=== PATIENT | male | born 1945 | race Caucasian/White ===

== ENCOUNTER 2019-09-25 14:47 | Emergency (ER) | payer MEDICARE, OTHER ==
[~2019-09-25] VITALS: Ht 162.5 cm; Wt 52.7 kg
[2019-09-25] MEDS ORDERED: PANT40TA3 (15:16)
[2019-09-25] MEDS ORDERED: ATEN25TA (15:16)
[2019-09-25] MEDS ORDERED: DIGO125T3 (15:16)
[2019-09-25] MEDS ORDERED: ATOR40TA70 (15:16)
[2019-09-25] MEDS ORDERED: LISI-556 (15:16)
[2019-09-25] MEDS ORDERED: BUME2TAB7 (15:16)
--- NOTE | 2019-09-25 15:27 | NUR ---
CURRENT B/P 138/69
--- NOTE | 2019-09-25 15:30 | ED Upper Extremity ---
General Chief Complaint: Laceration Stated Complaint: RIGHT HAND LAC Nursing Triage Note: PT AMB TO TRIAGE WITH COMPLAINTOF LACERATION TO RIGHT HAND. PT STATES A BOARD WITH NAILS WAS DROPPED AND CAUGHT HIS HAD. WHILE IN TRIAGE, PT BECAME DIAPHORETIC AND BLOOD PRESSURE WAS 64/31. WHEN BROUGHT BACK TO ER ROOM, PT STATED HE STARTED TO FEEL BETTER AND BP INCREASED TO 116/50. Nursing Sepsis Screen: No Definite Risk Source: patient Exam Limitations: no limitations History of Present Illness Date Seen by Provider: Sep 25, 2019 Time Seen by Provider: 15:28 Initial Comments To ER with reports of right hand injury. They were throwing a board with nails and into the trash when it fell landing back on his hand, the nails got the dorsal aspect of the right hand over the fourth and fifth knuckles. He had intense pain. During triage blood pressure was noted to be 60 systolic he was diaphoretic and lightheaded. He states the pain is very intense. He was brought back to room immediately, blood pressure up to 115/60, states that he is feeling quite a bit better and no longer diaphoretic. Onset: just prior to arrival Severity: moderate Pain/Injury Location: right hand Method of Injury: direct blow Modifying Factors: Worse With Movement Allergies and Home Medications Allergies Coded Allergies: No Known Drug Allergies (Unverified , 09/25/19) Home Medications Cephalexin 500 Mg Capsule, 500 MG PO TID Prescribed by: MARGO GONZALEZ on 09/25/19 1552 Hydrocodone/Acetaminophen 1 Each Tablet, 1 TAB PO Q4-6HR Prescribed by: MARGO GONZALEZ on 09/25/19 1559 Patient Home Medication List Home Medication List Reviewed: Yes Review of Systems Constitutional: see HPI EENTM: see HPI Respiratory: no symptoms reported Cardiovascular: no symptoms reported Genitourinary: no symptoms reported Musculoskeletal: see HPI Skin: see HPI Psychiatric/Neurological: No Symptoms Reported Past [place]mw[place]-Yxlfac Hx Patient Social History Recent Foreign Travel: No Contact w/Someone Who Travel: No Recent Infectious Disease Expo: No Physical Exam Vital Signs Vital Signs - First Documented 09/25/19 15:09 Temp 36.6 Pulse 72 Resp 20 B/P (MAP) 116/50 (72) Pulse Ox 96 O2 Delivery Room Air Capillary Refill : Less Than 3 Seconds Height, Weight, BMI Height: '" Weight: lbs. oz. kg; 19.00 BMI Method: General Appearance: WD/WN, no apparent distress HEENT: PERRL/EOMI, normal ENT inspection Respiratory: no respiratory distress, no accessory muscle use Shoulder: normal inspection, non-tender Elbow/Forearm: normal inspection, non-tender, Right Wrist: Yes normal inspection, Yes non-tender Hand: Right (there is a laceration, dorsal aspect of the hand on the ulnar side of the distal third metacarpal extending down to the proximal phalanx ulnar side third digit, another one on the ulnar side of the proximal phalanx fourth finger. Normal sensation distally, can make a fist and extend all fingers.) Neurologic/Tendon: normal sensation, normal motor functions, normal tendon functions Neurologic/Psychiatric: alert, normal mood/affect, oriented x 3 Skin: normal color, warm/dry Progress/Results/Core Measures Results/Orders My Orders Orders - MARGO GONZALEZ APRN Hand, Right, 3 Views (09/25/19 15:27) Cephalexin Capsule (Keflex Capsule) (09/25/19 16:00) Hydrocodone/Apap 5/325 Tablet (Lortab 5 (09/25/19 16:00) Vital Signs/I&O 09/25/19 15:09 Temp 36.6 Pulse 72 Resp 20 B/P (MAP) 116/50 (72) Pulse Ox 96 O2 Delivery Room Air Blood Pressure Mean: 72 Departure Impression Primary Impression: Laceration of hand Qualified Codes: S61.411A - Laceration without foreign body of right hand, initial encounter Additional Impression: Vasovagal episode Disposition: 01 HOME, SELF-CARE Condition: Stable Departure-Patient Inst. Decision time for Depature: 15:50 Referrals: SEB LYLES,LOCAL PHYSICIAN (PCP) Primary Care Physician MERRITT ADAM MD, MICHAEL P MD Patient Instructions: Wound Care, Vasovagal Response Add. Discharge Instructions: 1. Return to ER for any worsening symptoms or other concerns as redness, swelling, fever, chills or worsening pain.: Orthopedic surgeon of your choosing to make an appointment to be seen for follow-up this week. A list has been provided.. Because this was a contaminated wound from nail we do not want to stitch this closed. Leave it open, keep it wrapped with a dressing changing the dressing daily. You can shower allowing water run over this started tomorrow. Take the antibiotics as directed. Follow-up with your doctor later this week for recheck. All discharge instructions reviewed with patient and/or family. Voiced understanding. Scripts Hydrocodone/Acetaminophen ([place] 5-325 Tablet) 1 Each Tablet 1 TAB PO Q4-6HR for Pain MDD 10 TABS for 7 Days, #10 TAB Prov: MAROG GONZALEZ APRN 09/25/19 Cephalexin (Keflex) 500 Mg Capsule 500 MG PO TID, #15 CAP Prov: MARGO GONZALEZ APRN 09/25/19 MARGO GONZALEZ APRN Sep 25, 2019 15:30
[2019-09-25] MEDS ORDERED: CEPH-507 PO (15:52)
--- NOTE | 2019-09-25 15:53 | Diagnostic Imaging Report ---
INDICATION: Injury to right hand. AP, oblique, and lateral views of the right hand are obtained. 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 There are diffuse degenerative changes throughout the MCP joints as well as throughout the interphalangeal joints. There is no acute fracture. IMPRESSION: Advanced degenerative findings as above with no acute abnormality or radiopaque foreign body. Dictated by: Dictated on workstation # [id number]
[2019-09-25] MEDS ORDERED: HYDR-4226 PO (15:59)
[2019-09-25] MEDS ORDERED: CEPHALEXIN 250 MG (KEFLEX) CAP PO ONE (16:00)
[2019-09-25] MEDS ORDERED: HYDROcodone/APAP 5 MG/325 MG (LORTAB) TAB PO ONE (16:00)
[2019-09-25 16:10] VITALS: BP 102/47
--- OUTSIDE RECORDS SUMMARY | 2019-10-04 12:01 | XMS REPORT | Clinical Summary ---
Author Author Zoe, Alex Jacobs [facility] Address Unknown Phone Unavailable Allergies, Adverse Reactions, Alerts Allergy Name Reaction Description Start Date Severity Status Pr ovider NKDA Critical Active Kendra Yoon APR N Conditions or Problems Problem Name Problem Code Onset Date Status Entry Date Provider Comment Standard Description Annotate HYPERTENSION 401.9 Active DANNY Tabor Unspecified essential hypertension HYPERLIPIDEMIA 272.4 Active DANNY Tabor Other and unspecified hyperlipidemia FH DIABETES V18.0 Active DANNY Tabor Family history of diabetes mellitus PERSONAL HISTORY MALIGNANT NEOPLASM ESOPHAGUS V10.03 Active Francisco J Mata MD Personal history of malignant neoplasm of esophagus G E R D 530.81 Active Kendra Irving APRN Es ophageal reflux BRONCHITIS-ACUTE 466.0 Inactive 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 F/U EXAM FOLLOW CMPL TX W/HIGH-RISK MED NEC V67.51 Act brad Kendra Irving APRN Follow-up examination follow ing treatment with high-risk medication, not elsewhere classified CAD 414.00 Active Bill Gonzáles MD Coronary atherosclerosis of unspecified type of vessel, [place] or graft Sinusitis 461.9 Active Bill Gonzáles MD Acute sinusitis, unspecified Colon cancer screening V76.51 Active Kendra Yoon APRN Screening for malignant neoplasms of colon BRONCHITIS-ACUTE ICD-466.0 Inactive Kendra josé APRN Medication List Medication Instructions Start Date Stop Date Generic Name NDC Status Provider Patient Instruction MELOXICAM 7.5 MG TABS 1 tab by mouth every 12 hours as needed 10/08 MELOXICAM 25302439922 Active Bill Gonzáles MD Active VIAGRA 50 MG TABS 1/2 TABLET 1 HR BEFORE BEDTIME SILDENAFIL CITRATE 82067582788 Active Essence Benson RMA Active AMOXICILLIN 875 MG TABS 1 tab by mouth twice daily 201 11/15/00 AMOXICILLIN 74866986860 No Longer Active Bill Gonzáles MD Acti ve LANOXIN 0.125 MG TABS 1 tab po qd DIGOXIN 21806435633 Ac tive Bill Gonzáles MD Active VIAGRA 100 MG TABS 1/2 po 1 hr before sexual activity SILDENAFIL CITRATE 48800652538 No Longer Active Francisco J Mata MD Active TUSSIONEX PENNKINETIC ER 10-8 MG/5ML LQCR 5ml po q12hr PRN Cough HYDROCOD POLST-CHLORPHEN POLST 92374569575 No Longer Active Francisco J Mata MD Active ZITHROMAX 250 MG TAB 2 po today, then 1 po q days 2-5 AZITHROMYCIN 66849028031 No Longer Active Francisco J Mata MD A ctive PREDNISONE 20 MG TAB 2 tabs daily for 3 days, 1 t ab daily for 3 days, 1/2 tab daily for 2 days PREDNISONE 63902967589 No Longer Active Kendra Irving APRN Active OMEPRAZOLE 40 MG CPDR 1 qd OMEPRAZOLE 92448 024158 No Longer Active Kendra Irving APRN Active ASPIR-81 81 MG TBEC 1 qd ASPIRIN 13124625066 DANNY [place] Active ATENOLOL 50 MG TABS 1 bid ATENOLOL 43233037629 Active Svetlana Clayton Active CLONIDINE HCL 0.1 MG TABS 1 bid CLONIDINE HCL 81182 924528 Active Bill Gonzáles MD Active CVS VITAMIN E 1000 UNIT CAPS 1 qd VITAMIN E 814569 43374 Active DANNY Tabor Active DAILY MULTIPLE VITAMINS TABS 1 qd MULTIPLE V ITAMIN 93289147181 Active DANNY Tabor Active GARLIC OIL 500 MG TABS 1 qd GARLIC 09527446266 Ac tive Mario Alberto Morfin RMMichael Active ZETIA 10 MG TABS 1 qd EZETIMIBE 17345664589 Active Bill Gonzáles MD Active KLOR-CON M20 20 MEQ CR-TABS 1 qd BLAKE M CHLORIDE JARRED CR 15816023402 Active Bill Gonzáles MD Active BUMETANIDE 2 MG TABS 1qd BUMETANIDE 45960414441 A ctive Nemo Morgan REGIONAL COORDINATOR Active SIMVASTATIN 40 MG TABS 1 qhs SIMVASTATIN 3704879047 6 Active Bill Gonzáles MD Active OMEPRAZOLE 40 MG CPDR 1 qd OMEPRAZOLE 40 MG CPDR 607945 OMEPRAZOLE Inactive ZITHROMAX 250 MG TAB 2 po today, then 1 po q days 2-5 ZITHROMAX 250 MG TAB 3704390 AZITHROMYCIN Inactive TUSSIONEX PENNKINETIC ER 10-8 MG/5ML LQCR 5ml po q12hr PRN Cough TUSSIONEX PENNKINETIC ER 10-8 MG/5ML LQCR HYDROCOD POLST-CHLORPHEN POLST Inactive VIAGRA 100 MG TABS 1/2 po 1 hr before sexual activity VIAGRA 100 MG TABS SILDENAFIL CITRATE Inactive PREDNISONE 20 MG TAB 2 tabs daily for 3 days, 1 t ab daily for 3 days, 1/2 tab daily for 2 days PREDNISONE 20 MG TAB 333705 PREDNISON E Inactive AMOXICILLIN 875 MG TABS 1 tab by mouth twice daily 201 11/15/00 AMOXICILLIN 875 MG TABS 290900 AMOXICILLIN Inactive Encounters Code Encounter Date Provider Facility CPT-12612 Level 4 Est. Patient 10:12:54 SAND SYSTEM OPERATOR Bill holden MD [facility] CPT-21584 Level 4 Est. Patient 20:03:37 SAND SYSTEM OPERATOR Bill holden MD [facility] CPT-57882 Level 3 Est. Patient 16:15:23 SAND SYSTEM OPERATOR Bill holden MD [facility] CPT-67500 Level 4 Est. Patient 23:44:36 CDT Bill holden MD [facility] CPT-75437 Level 3 Est. Patient 14:02:53 SAND SYSTEM OPERATOR Kendra rankin APRN [facility] Procedures Code Procedure Name Date Entry Date Standard Desc ription CPT-OV Office Visit 14:28:59 SAND SYSTEM OPERATOR CPT-OV Office Visit 11:28:00 CDT CPT-OV Office Visit 15:01:24 CDT CPT-OV Office Visit 16:55:58 CDT CPT-OV Office Visit 16:05:31 SAND SYSTEM OPERATOR CPT-OV Office Visit 09:47:16 SAND SYSTEM OPERATOR CPT-OV Office Visit 20:31:04 CDT
--- OUTSIDE RECORDS SUMMARY | 2019-10-04 12:01 | XMS REPORT | Clinical Summary ---
Author Author Zoe, Alex Jacobs [facility] Address Unknown Phone Unavailable Allergies, Adverse Reactions, Alerts Allergy Name Reaction Description Start Date Severity Status Pr ovider NKDA Critical Active Kendra APR N Conditions or Problems Problem Name [...] of esophagus G E R D 530.81 Resolved Francisco J Mata MD Esophageal reflux BRONCHITIS-ACUTE 466.0 Inactive Kendra CONTRERAS RN Acute bronchitis F/U EXAM FOLLOW CMPL TX W/HIGH-RISK MED NEC V67.51 Resolved Francisco J Mata MD Follow-up examina tion following treatment with high-risk medication, not elsewhere classified CAD 414.00 Active Bill Gonzáles MD Coronary atherosclerosis of unspecified type of vessel, [place] or graft Sinusitis 461.9 Resolved Francisco J Mata MD Acute sinusitis, unspecified Colon cancer screening V76.51 Resolved Juan Mata MD Screening for malignant neoplasms of col on Right upper quadrant pain Active Juan Mata MD Abdominal pain, right upper quadrant BRONCHITIS-ACUTE ICD-466.0 Inactive Kendra josé 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 F/U EXAM FOLLOW CMPL TX W/HIGH-RISK MED NEC ICD-V67.51 Inactive Francisco J Mata MD Sinusitis ICD-461.9 Inactive Francisco J juarez MD Colon cancer screening ICD-V76.51 Inactive Juan Mata MD G E R D ICD-530.81 Inactive Francisco J Mata MD 20 31/07/14 Medication List Medication Instructions Start Date Stop Date Generic Name NDC Status Provider Patient Instruction ZOFRAN ODT 4 MG ORAL TBDP 1 every 8 hrs prn OND ANSETRON 46393052608 Active Francisco J Mata MD Active CVS VITAMIN E 1000 UNIT CAPS 1 qd VITAMIN E 33781272004 No Longer Active Francisco J Mata MD Active KLOR-CON M20 20 MEQ CR-TABS 1 qd POTASSIUM CHLORIDE JARRED CR 71218720621 No Longer Active Francisco J Mata MD A ctive VIAGRA 50 MG TABS 1/2 TABLET 1 HR BEFORE BEDTIME 07/29 SILDENAFIL CITRATE 05364410317 No Longer Active Francisco J Mata MD Active MELOXICAM 7.5 MG TABS 1 tab by mouth every 12 hours as needed 20 30/09/22 MELOXICAM 22253479510 No Longer Active Francisco J Mata MD Active AMOXICILLIN 875 MG TABS 1 tab by mouth twice daily 201 11/15/00 AMOXICILLIN 37570455420 No Longer Active Bill Gonzáles MD Acti ve LANOXIN 0.125 MG TABS 1 tab po qd DIGOXIN 49896754963 Ac tive Bill Gonzáles MD Active VIAGRA 100 MG TABS 1/2 po 1 hr before sexual activity SILDENAFIL CITRATE 02140012888 No Longer Active Francisco J Mata MD Active TUSSIONEX PENNKINETIC ER 10-8 MG/5ML LQCR 5ml po q12hr PRN Cough HYDROCOD POLST-CHLORPHEN POLST 13540529929 No Longer Active Francisco J Mata MD Active ZITHROMAX 250 MG TAB 2 po today, then 1 po q days 2-5 AZITHROMYCIN 62378243670 No Longer Active Francisco J Mata MD A ctive PREDNISONE 20 MG TAB 2 tabs daily for 3 days, 1 t ab daily for 3 days, 1/2 tab daily for 2 days PREDNISONE 40416658199 No Longer Active Kendra Irving APRN Active OMEPRAZOLE 40 MG CPDR 1 qd OMEPRAZOLE 04044 576278 No Longer Active Kendra Irving APRN Active ASPIR-81 81 MG TBEC 1 qd ASPIRIN 12083278934 Activ e Mario Alberto Morfin RMA Active ATENOLOL 50 MG TABS 1 bid ATENOLOL 82852010831 Active Svetlana Clayton Active CLONIDINE HCL 0.1 MG TABS 1 bid CLONIDINE HCL 85338 118611 Active Bill Gonzáles MD Active DAILY MULTIPLE VITAMINS TABS 1 qd MULTIPLE V ITAMIN 58744033876 Active DANNY Tabor Active GARLIC OIL 500 MG TABS 1 qd GARLIC 20531371847 Ac tive Mario Alberto Morfin RMA Active ZETIA 10 MG TABS 1 qd EZETIMIBE 20146556517 Active Nemo Morgan APRN Active BUMETANIDE 2 MG TABS 1qd BUMETANIDE 04115015823 A ctive Nemo Morgan APRN Active SIMVASTATIN 40 MG TABS 1 qhs SIMVASTATIN 3042263132 6 Active Bill Gonzáles MD Active OMEPRAZOLE 40 MG CPDR 1 qd OMEPRAZOLE 40 MG CPDR 565261 OMEPRAZOLE Inactive ZITHROMAX 250 MG TAB 2 po today, then 1 po q days 2-5 ZITHROMAX 250 MG TAB 7170147 AZITHROMYCIN Inactive TUSSIONEX PENNKINETIC ER 10-8 MG/5ML LQCR 5ml po q12hr PRN Cough TUSSIONEX PENNKINETIC ER 10-8 MG/5ML LQCR HYDROCOD POLST-CHLORPHEN POLST Inactive VIAGRA 100 MG TABS 1/2 po 1 hr before sexual activity VIAGRA 100 MG TABS SILDENAFIL CITRATE Inactive MELOXICAM 7.5 MG TABS 1 tab by mouth every 12 hours as needed 20 30/09/22 MELOXICAM 7.5 MG TABS 052170 MELOXICAM Inactive VIAGRA 50 MG TABS 1/2 TABLET 1 HR BEFORE BEDTIME 07/29 VIAGRA 50 MG TABS SILDENAFIL CITRATE Inactive KLOR-CON M20 20 MEQ CR-TABS 1 qd KLOR-CON M20 20 MEQ CR-TABS POTASSIUM CHLORIDE JARRED CR Inactive CVS VITAMIN E 1000 UNIT CAPS 1 qd CVS VITAMIN E 1000 UNIT CAPS 562425 VITAMIN E Inactive PREDNISONE 20 MG TAB 2 tabs daily for 3 days, 1 t ab daily for 3 days, 1/2 tab daily for 2 days PREDNISONE 20 MG TAB 376674 PREDNISON E Inactive AMOXICILLIN 875 MG TABS 1 tab by mouth twice daily 201 11/15/00 AMOXICILLIN 875 MG TABS 959782 AMOXICILLIN Inactive Vital Signs Date Name Value Unit Range Description blood pressure, diastolic - 8462-4 60 mm[Hg] BP donald blood pressure, systolic - 8480-6 126 mm[Hg] BP sys pulse rate E&M - 8867-4 48 /min H eart rate temperature E&M 96.7 [degF] Body temp erature weight E&M - 3141-9 122 [lb_av] Weigh t Measured Diagnostic Results Date Name Value Unit Range Description Lab Report: CBC, Comp. Metabolic Panel - Chemistry sodium, serum 143 mmol/L 945-899 4532/12/14 carbon dioxide, venous blood 31.5 mmol/L 21.0-32 .0 potassium, serum 3.7 mmol/L 3.5-5.2 chloride, serum 103 mmol/L 98-107 blood glucose 93 mg/dL 65-110 urea nitrogen, blood 19 mg/dL 7-18 creatinine, serum 1.08 mg/dL 0.55-1.30 alanine aminotransferase (SGPT), serum 44 U/L 12-78 aspartate aminotransferase (SGOT), serum 28 U/L 15-37 calcium, serum 8.6 mg/dL 8.5-10.1 bilirubin, serum, total 0.30 mg/dL 0.00-1.00 Lab Report: CBC, Comp. Metabolic Panel - Hematology mean corpuscular volume, RBC 94 fL 80-97 hematocrit, blood 44.7 % 41.0-53.0 hemoglobin, blood 15.1 g/dL 13.5-17.5 erythrocyte (RBC) count 4.75 10^6/MM^3 10*6/mm3 4.69-6.1 3 leukocyte count, blood 8.8 10^3/MM^3 10*3/mm3 4.6-10.2 mean corpuscular hemoglobin, RBC 31.9 pg 27. 0-31.2 mean corpuscular hemoglobin concentration, RBC 33.8 G/DL % 31.8-35.4 red blood cell distribution width 14.2 % 11 .6-14.8 platelet count 175 10^3/MM^3 10*3/mm3 142-424 Encounters Code Encounter Date Provider Facility CPT-05059 Level 4 New Patient 15:31:29 OPTICAL COATING TECHNICIAN Francisco J Mata MD [facility] CPT-09868 Level 4 Est. Patient 10:12:54 OPTICAL COATING TECHNICIAN Bill holden MD [facility] CPT-72150 Level 4 Est. Patient 20:03:37 OPTICAL COATING TECHNICIAN Bill holden MD [facility] CPT-44573 Level 3 Est. Patient 16:15:23 OPTICAL COATING TECHNICIAN Bill holden MD [facility] CPT-55796 Level 4 Est. Patient 23:44:36 CDT Bill holden MD [facility] CPT-34701 Level 3 Est. Patient 14:02:53 OPTICAL COATING TECHNICIAN Kendra Arthur Rudd chucho CONTRERAS [facility] Procedures Code Procedure Name Date Entry Date Standard Desc ription CPT-30700 [employer] all organs plus proximal aorta and distal IVC - XRAY USE ONLY 11:53:25 OPTICAL COATING TECHNICIAN CPT-42443 CMP - LAB USE ONLY 17:29:21 OPTICAL COATING TECHNICIAN CPT-85279 CBC - LAB USE ONLY 17:29:21 OPTICAL COATING TECHNICIAN CPT-49447 Venipuncture Draw Fee 17:29:21 OPTICAL COATING TECHNICIAN CPT-OV Office Visit 14:28:59 OPTICAL COATING TECHNICIAN CPT-OV Office Visit 11:28:00 CDT CPT-OV Office Visit 15:01:24 CDT CPT-OV Office Visit 16:55:58 CDT CPT-OV Office Visit 16:05:31 OPTICAL COATING TECHNICIAN CPT-OV Office Visit 09:47:16 OPTICAL COATING TECHNICIAN CPT-OV Office Visit 20:31:04 CDT
--- OUTSIDE RECORDS SUMMARY | 2019-10-04 12:01 | XMS REPORT | Clinical Summary ---
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 bronchitis F/U EXAM FOLLOW CMPL TX W/HIGH-RISK MED NEC V67.51 Act brad Kendra Irving APRN Follow-up examination follow ing treatment with high-risk medication, not elsewhere classified CAD 414.00 Active Bill Gonzáles MD Coronary atherosclerosis of unspecified type of vessel, [place] or graft Sinusitis 461.9 Active Bill Gonzáles MD Acute sinusitis, unspecified Colon cancer screening V76.51 Active Kendra Yoon APRN Screening for malignant neoplasms of colon BRONCHITIS-ACUTE ICD-466.0 Inactive Kendra josé APRN Medication List Medication Instructions Start Date Stop Date Generic Name NDC Status Provider Patient Instruction MELOXICAM 7.5 MG TABS 1 tab by mouth every 12 hours as needed 10/08 MELOXICAM 52083471566 Active Bill Gonzáles MD Active VIAGRA 50 MG TABS 1/2 TABLET 1 HR BEFORE BEDTIME SILDENAFIL CITRATE 07558098064 Active Essence Benson RMA Active AMOXICILLIN 875 MG TABS 1 tab by mouth twice daily 201 11/15/00 AMOXICILLIN 67450866529 No Longer Active Bill Gonzáles MD Acti ve LANOXIN 0.125 MG TABS 1 tab po qd DIGOXIN 90983897504 Ac tive Bill Gonzáles MD Active VIAGRA 100 MG TABS 1/2 po 1 hr before sexual activity SILDENAFIL CITRATE 60670367094 No Longer Active Francisco J Mata MD Active TUSSIONEX PENNKINETIC ER 10-8 MG/5ML LQCR 5ml po q12hr PRN Cough HYDROCOD POLST-CHLORPHEN POLST 15369648830 No Longer Active Francisco J Mata MD Active ZITHROMAX 250 MG TAB 2 po today, then 1 po q days 2-5 AZITHROMYCIN 53864524972 No Longer Active Francisco J Mata MD A ctive PREDNISONE 20 MG TAB 2 tabs daily for 3 days, 1 t ab daily for 3 days, 1/2 tab daily for 2 days PREDNISONE 51507214231 No Longer Active Kendra Irving APRN Active OMEPRAZOLE 40 MG CPDR 1 qd OMEPRAZOLE 17147 574614 No Longer Active Kendra Irving APRN Active ASPIR-81 81 MG TBEC 1 qd ASPIRIN 45054551272 DANNY [place] Active ATENOLOL 50 MG TABS 1 bid ATENOLOL 63807683693 Active Svetlana Clayton Active CLONIDINE HCL 0.1 MG TABS 1 bid CLONIDINE HCL 35585 200908 Active Bill Gonzáles MD Active CVS VITAMIN E 1000 UNIT CAPS 1 qd VITAMIN E 869631 42023 Active DANNY Tabor Active DAILY MULTIPLE VITAMINS TABS 1 qd MULTIPLE V ITAMIN 09192911694 Active DANNY Tabor Active GARLIC OIL 500 MG TABS 1 qd GARLIC 92804538823 Ac tive Mario Alberto Morfin RMMichael Active ZETIA 10 MG TABS 1 qd EZETIMIBE 91201342813 Active Bill Gonzáles MD Active KLOR-CON M20 20 MEQ CR-TABS 1 qd BLAKE M CHLORIDE JARRED CR 30858016682 Active Bill Gonzáles MD Active BUMETANIDE 2 MG TABS 1qd BUMETANIDE 58280275416 A ctive Nemo Morgan WELDER [employer] GAS Active SIMVASTATIN 40 MG TABS 1 qhs SIMVASTATIN 9654344255 6 Active Bill Gonzáles MD Active OMEPRAZOLE 40 MG CPDR 1 qd OMEPRAZOLE 40 MG CPDR 131985 OMEPRAZOLE Inactive ZITHROMAX 250 MG TAB 2 po today, then 1 po q days 2-5 ZITHROMAX 250 MG TAB 3006157 AZITHROMYCIN Inactive TUSSIONEX PENNKINETIC ER 10-8 MG/5ML [...] for 2 days PREDNISONE 20 MG TAB 111161 PREDNISON E Inactive AMOXICILLIN 875 MG TABS 1 tab by mouth twice daily 201 11/15/00 AMOXICILLIN 875 MG TABS 267484 AMOXICILLIN Inactive Encounters Code Encounter Date Provider Facility CPT-41216 Level 4 Est. Patient 10:12:54 JOB PLACEMENT SPECIALIST Bill holden MD [facility] CPT-18975 Level 4 Est. Patient 20:03:37 JOB PLACEMENT SPECIALIST Bill holden MD [facility] CPT-96630 Level 3 Est. Patient 16:15:23 JOB PLACEMENT SPECIALIST Bill holden MD [facility] CPT-72002 Level 4 Est. Patient 23:44:36 CDT Bill holden MD [facility] CPT-67023 Level 3 Est. Patient 14:02:53 JOB PLACEMENT SPECIALIST Kendra rankin APRN [facility] Procedures Code Procedure Name Date Entry Date Standard Desc ription CPT-OV Office Visit 14:28:59 JOB PLACEMENT SPECIALIST CPT-OV Office Visit 11:28:00 CDT CPT-OV Office Visit 15:01:24 CDT CPT-OV Office Visit 16:55:58 CDT CPT-OV Office Visit 16:05:31 JOB PLACEMENT SPECIALIST CPT-OV Office Visit 09:47:16 JOB PLACEMENT SPECIALIST CPT-OV Office Visit 20:31:04 CDT
--- OUTSIDE RECORDS SUMMARY | 2019-10-04 12:01 | XMS REPORT | Clinical Summary ---
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 F/U EXAM FOLLOW CMPL TX W/HIGH-RISK MED [...] 1 every 8 hrs prn OND ANSETRON 14341493049 Active Francisco J Mata MD Active CVS VITAMIN E 1000 UNIT CAPS 1 qd VITAMIN E 02634888690 No Longer Active Francisco J Mata MD Active KLOR-CON M20 20 MEQ CR-TABS 1 qd POTASSIUM CHLORIDE JARRED CR 57260633318 No Longer Active Francisco J Mata MD A ctive VIAGRA 50 MG TABS 1/2 TABLET 1 HR BEFORE BEDTIME 07/29 SILDENAFIL CITRATE 66053970504 No Longer Active Francisco J Mata MD Active MELOXICAM 7.5 MG TABS 1 tab by mouth every 12 hours as needed 20 30/09/22 MELOXICAM 92322741028 No Longer Active Francisco J Mata MD Active AMOXICILLIN 875 MG TABS 1 tab by mouth twice daily 201 11/15/00 AMOXICILLIN 19305248928 No Longer Active Bill Gonzáles MD Acti ve LANOXIN 0.125 MG TABS 1 tab po qd DIGOXIN 14288210247 Ac tive Bill Gonzáles MD Active VIAGRA 100 MG TABS 1/2 po 1 hr before sexual activity SILDENAFIL CITRATE 95493423345 No Longer Active Francisco J Mata MD Active TUSSIONEX PENNKINETIC ER 10-8 MG/5ML LQCR 5ml po q12hr PRN Cough HYDROCOD POLST-CHLORPHEN POLST 00158584934 No Longer Active Francisco J Mata MD Active ZITHROMAX 250 MG TAB 2 po today, then 1 po q days 2-5 AZITHROMYCIN 18575021084 No Longer Active Francisco J Mata MD A ctive PREDNISONE 20 MG TAB 2 tabs daily for 3 days, 1 t ab daily for 3 days, 1/2 tab daily for 2 days PREDNISONE 28207488878 No Longer Active Kendra Irving APRN Active OMEPRAZOLE 40 MG CPDR 1 qd OMEPRAZOLE 36824 132596 No Longer Active Kendra Irving APRN Active ASPIR-81 81 MG TBEC 1 qd ASPIRIN 90631519519 Activ e Mario Alberto Morfin RMA Active ATENOLOL 50 MG TABS 1 bid ATENOLOL 68117568418 Active Svetlana Clayton Active CLONIDINE HCL 0.1 MG TABS 1 bid CLONIDINE HCL 83537 468630 Active Bill Gonzáles MD Active DAILY MULTIPLE VITAMINS TABS 1 qd MULTIPLE V ITAMIN 82352650119 Active DANNY Tabor Active GARLIC OIL 500 MG TABS 1 qd GARLIC 29959025624 Ac tive Mario Alberto Morfin RMA Active ZETIA 10 MG TABS 1 qd EZETIMIBE 62792199692 Active Nemo Morgan APRN Active BUMETANIDE 2 MG TABS 1qd BUMETANIDE 73607019206 A ctive Nemo Morgan APRN Active SIMVASTATIN 40 MG TABS 1 qhs SIMVASTATIN 7682316660 6 Active Bill Gonzáles MD Active OMEPRAZOLE 40 MG CPDR 1 qd OMEPRAZOLE 40 MG CPDR 436112 OMEPRAZOLE Inactive ZITHROMAX 250 MG TAB 2 po today, then 1 po q days 2-5 ZITHROMAX 250 MG TAB 4243658 AZITHROMYCIN Inactive TUSSIONEX PENNKINETIC ER 10-8 MG/5ML LQCR 5ml po q12hr PRN Cough TUSSIONEX PENNKINETIC ER 10-8 MG/5ML LQCR HYDROCOD POLST-CHLORPHEN POLST Inactive VIAGRA 100 MG TABS 1/2 po 1 hr before sexual activity VIAGRA 100 MG TABS SILDENAFIL CITRATE Inactive MELOXICAM 7.5 MG TABS 1 tab by mouth every 12 hours as needed 20 30/09/22 MELOXICAM 7.5 MG TABS 713167 MELOXICAM Inactive VIAGRA 50 MG TABS 1/2 TABLET 1 HR BEFORE BEDTIME 07/29 VIAGRA 50 MG TABS SILDENAFIL CITRATE Inactive KLOR-CON M20 20 MEQ CR-TABS 1 qd KLOR-CON M20 20 MEQ CR-TABS POTASSIUM CHLORIDE JARRED CR Inactive CVS VITAMIN E 1000 UNIT CAPS 1 qd CVS VITAMIN E 1000 UNIT CAPS 536838 VITAMIN E Inactive PREDNISONE 20 MG TAB 2 tabs daily for 3 days, 1 t ab daily for 3 days, 1/2 tab daily for 2 days PREDNISONE 20 MG TAB 519580 PREDNISON E Inactive AMOXICILLIN 875 MG TABS 1 tab by mouth twice daily 201 11/15/00 AMOXICILLIN 875 MG TABS 860693 AMOXICILLIN Inactive Diagnostic Results Date Name Value Unit Range Description Lab Report: CBC, Comp. Metabolic Panel - Chemistry sodium, serum 143 mmol/L 216-355 2799/12/14 carbon dioxide, venous blood 31.5 mmol/L 21.0-32 [...] 142-424 Encounters Code Encounter Date Provider Facility CPT-93523 Level 4 New Patient 15:31:29 DIRECTOR CUSTOMER Francisco J Mata MD [facility] CPT-80302 Level 4 Est. Patient 10:12:54 DIRECTOR CUSTOMER Bill holden MD [facility] CPT-31859 Level 4 Est. Patient 20:03:37 DIRECTOR CUSTOMER Bill holden MD [facility] CPT-80293 Level 3 Est. Patient 16:15:23 DIRECTOR CUSTOMER Bill holden MD [facility] CPT-04212 Level 4 Est. Patient 23:44:36 CDT Bill holden MD [facility] CPT-54636 Level 3 Est. Patient 14:02:53 DIRECTOR CUSTOMER Kendra rankin APRN [facility] Procedures Code Procedure Name Date Entry Date Standard Desc ription CPT-60447 [facility] [employer] [facility] all organs plus proximal aorta and distal IVC - XRAY USE ONLY 11:53:25 DIRECTOR CUSTOMER CPT-46120 CMP - LAB USE ONLY 17:29:21 DIRECTOR CUSTOMER CPT-02858 CBC - LAB USE ONLY 17:29:21 [facility] CPT-20049 Venipuncture Draw Fee 17:29:21 DIRECTOR CUSTOMER CPT-OV Office Visit 14:28:59 DIRECTOR CUSTOMER CPT-OV Office Visit 11:28:00 CDT CPT-OV Office Visit 15:01:24 CDT CPT-OV Office Visit 16:55:58 CDT CPT-OV Office Visit 16:05:31 DIRECTOR CUSTOMER CPT-OV Office Visit 09:47:16 DIRECTOR CUSTOMER CPT-OV Office Visit 20:31:04 CDT
--- OUTSIDE RECORDS SUMMARY | 2019-10-04 12:01 | XMS REPORT | Clinical Summary ---
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 bronchitis F/U EXAM FOLLOW CMPL TX W/HIGH-RISK MED NEC V67.51 Act brad Kendra Irving APRN Follow-up examination follow ing treatment with high-risk medication, not elsewhere classified CAD 414.00 Active Bill Gonzáles MD Coronary atherosclerosis of unspecified type of vessel, [place] or graft Sinusitis 461.9 Active Bill Gonzáles MD Acute sinusitis, unspecified Colon cancer screening V76.51 Active Kendra Yoon APRN Screening for malignant neoplasms of colon BRONCHITIS-ACUTE ICD-466.0 Inactive Kendra josé APRN Medication List Medication Instructions Start Date Stop Date Generic Name NDC Status Provider Patient Instruction MELOXICAM 7.5 MG TABS 1 tab by mouth every 12 hours as needed 10/08 MELOXICAM 57770350779 Active Bill Gonzáles MD Active VIAGRA 50 MG TABS 1/2 TABLET 1 HR BEFORE BEDTIME SILDENAFIL CITRATE 03787749631 Active Essence Benson RMA Active AMOXICILLIN 875 MG TABS 1 tab by mouth twice daily 201 11/15/00 AMOXICILLIN 39155714780 No Longer Active Bill Gonzáles MD Acti ve LANOXIN 0.125 MG TABS 1 tab po qd DIGOXIN 17581883509 Ac tive Bill Gonzáles MD Active VIAGRA 100 MG TABS 1/2 po 1 hr before sexual activity SILDENAFIL CITRATE 76129325553 No Longer Active Francisco J Mata MD Active TUSSIONEX PENNKINETIC ER 10-8 MG/5ML LQCR 5ml po q12hr PRN Cough HYDROCOD POLST-CHLORPHEN POLST 22672589111 No Longer Active Francisco J Mata MD Active ZITHROMAX 250 MG TAB 2 po today, then 1 po q days 2-5 AZITHROMYCIN 38247846510 No Longer Active Francisco J Mata MD A ctive PREDNISONE 20 MG TAB 2 tabs daily for 3 days, 1 t ab daily for 3 days, 1/2 tab daily for 2 days PREDNISONE 79299552493 No Longer Active Kendra Irving APRN Active OMEPRAZOLE 40 MG CPDR 1 qd OMEPRAZOLE 42236 620423 No Longer Active Kendra Irving APRN Active ASPIR-81 81 MG TBEC 1 qd ASPIRIN 17430217545 DANNY [place] Active ATENOLOL 50 MG TABS 1 bid ATENOLOL 46990509841 Active Svetlana Clayton Active CLONIDINE HCL 0.1 MG TABS 1 bid CLONIDINE HCL 38110 424224 Active Bill Gonzáles MD Active CVS VITAMIN E 1000 UNIT CAPS 1 qd VITAMIN E 100981 35829 Active DANNY Tabor Active DAILY MULTIPLE VITAMINS TABS 1 qd MULTIPLE V ITAMIN 13251792389 Active DANNY Tabor Active GARLIC OIL 500 MG TABS 1 qd GARLIC 01475837799 Ac tive Mario Alberto Morfin RMMichael Active ZETIA 10 MG TABS 1 qd EZETIMIBE 26792688664 Active Nemo Eddie ARTIFICIAL LIMB MAKER Active KLOR-CON M20 20 MEQ CR-TABS 1 qd BLAKE M CHLORIDE JARRED CR 75498632583 Active Bill Gonzáles MD Active BUMETANIDE 2 MG TABS 1qd BUMETANIDE 69075366360 A ctive Nemolarry Morgan APRN Active SIMVASTATIN 40 MG TABS 1 qhs SIMVASTATIN 7044561679 6 Active Bill Gonzáles MD Active OMEPRAZOLE 40 MG CPDR 1 qd OMEPRAZOLE 40 MG CPDR 678158 OMEPRAZOLE Inactive ZITHROMAX 250 MG TAB 2 po today, then 1 po q days 2-5 ZITHROMAX 250 MG TAB 8805346 AZITHROMYCIN Inactive TUSSIONEX PENNKINETIC ER 10-8 MG/5ML [...] for 2 days PREDNISONE 20 MG TAB 252950 PREDNISON E Inactive AMOXICILLIN 875 MG TABS 1 tab by mouth twice daily 201 11/15/00 AMOXICILLIN 875 MG TABS 576839 AMOXICILLIN Inactive Encounters Code Encounter Date Provider Facility CPT-09810 Level 4 Est. Patient 10:12:54 TELECOMMUNICATIONS FIELD ENGINEER Bill holden MD [facility] CPT-90209 Level 4 Est. Patient 20:03:37 TELECOMMUNICATIONS FIELD ENGINEER Bill holden MD [facility] CPT-83654 Level 3 Est. Patient 16:15:23 TELECOMMUNICATIONS FIELD ENGINEER Bill holden MD [facility] CPT-68268 Level 4 Est. Patient 23:44:36 CDT Bill holden MD [facility] CPT-55636 Level 3 Est. Patient 14:02:53 TELECOMMUNICATIONS FIELD ENGINEER Kendra rankin APRN [facility] Procedures Code Procedure Name Date Entry Date Standard Desc ription CPT-OV Office Visit 14:28:59 TELECOMMUNICATIONS FIELD ENGINEER CPT-OV Office Visit 11:28:00 CDT CPT-OV Office Visit 15:01:24 CDT CPT-OV Office Visit 16:55:58 CDT CPT-OV Office Visit 16:05:31 TELECOMMUNICATIONS FIELD ENGINEER CPT-OV Office Visit 09:47:16 TELECOMMUNICATIONS FIELD ENGINEER CPT-OV Office Visit 20:31:04 CDT
--- OUTSIDE RECORDS SUMMARY | 2019-10-04 12:01 | XMS REPORT | Clinical Summary ---
Author Author Zoe, Alex Jacobs [facility] Address Unknown Phone Unavailable Allergies, Adverse [...] ophageal reflux BRONCHITIS-ACUTE 466.0 Inactive Kendra CONTRERAS RN Acute bronchitis F/U EXAM FOLLOW CMPL TX W/HIGH-RISK MED NEC V67.51 Act brad Kendra Irving APRN Follow-up examination follow ing treatment with high-risk medication, not elsewhere classified CAD 414.00 Active Bill Gonzáles MD Coronary atherosclerosis of unspecified type of vessel, [place] or graft Sinusitis 461.9 Active Bill Gonzáles MD Acute sinusitis, unspecified Colon cancer screening V76.51 Active Kendra Yoon APRN Screening for malignant neoplasms of colon BRONCHITIS-ACUTE ICD-466.0 Inactive Kendra josé APRN Medication List Medication Instructions Start Date Stop Date Generic Name NDC Status Provider Patient Instruction MELOXICAM 7.5 MG TABS 1 tab by mouth every 12 hours as needed 10/08 MELOXICAM 39327066146 Active Bill Gonzáles MD Active VIAGRA 50 MG TABS 1/2 TABLET 1 HR BEFORE BEDTIME SILDENAFIL CITRATE 46219813550 Active Essence Benson RMA Active AMOXICILLIN 875 MG TABS 1 tab by mouth twice daily 201 11/15/00 AMOXICILLIN 08707891638 No Longer Active Bill Gonzáles MD Acti ve LANOXIN 0.125 MG TABS 1 tab po qd DIGOXIN 32545227583 Ac tive Bill Gonzáles MD Active VIAGRA 100 MG TABS 1/2 po 1 hr before sexual activity SILDENAFIL CITRATE 20860011481 No Longer Active Francisco J Mata MD Active TUSSIONEX PENNKINETIC ER 10-8 MG/5ML LQCR 5ml po q12hr PRN Cough HYDROCOD POLST-CHLORPHEN POLST 04005083352 No Longer Active Francisco J Mata MD Active ZITHROMAX 250 MG TAB 2 po today, then 1 po q days 2-5 AZITHROMYCIN 05097588179 No Longer Active Francisco J Mata MD A ctive PREDNISONE 20 MG TAB 2 tabs daily for 3 days, 1 t ab daily for 3 days, 1/2 tab daily for 2 days PREDNISONE 38138612437 No Longer Active Kendra Irving APRN Active OMEPRAZOLE 40 MG CPDR 1 qd OMEPRAZOLE 44192 874552 No Longer Active Kendra Irving APRN Active ASPIR-81 81 MG TBEC 1 qd ASPIRIN 83913501250 DANNY [place] Active ATENOLOL 50 MG TABS 1 bid ATENOLOL 29798569012 Active Svetlana Clayton Active CLONIDINE HCL 0.1 MG TABS 1 bid CLONIDINE HCL 01460 057336 Active Bill Gonzáles MD Active CVS VITAMIN E 1000 UNIT CAPS 1 qd VITAMIN E 826714 96299 Active DANNY Tabor Active DAILY MULTIPLE VITAMINS TABS 1 qd MULTIPLE V ITAMIN 19249477749 Active DANNY Tabor Active GARLIC OIL 500 MG TABS 1 qd GARLIC 24551542508 Ac tive Mario Alberto Morfin RMMichael Active ZETIA 10 MG TABS 1 qd EZETIMIBE 68979444484 Active Nemo Eddie TRANSFER AND PUMPHOUSE OPERATOR Active KLOR-CON M20 20 MEQ CR-TABS 1 qd BLAKE M CHLORIDE JARRED CR 56874677899 Active Bill Gonzáles MD Active BUMETANIDE 2 MG TABS 1qd BUMETANIDE 35755469504 A ctive Nemolarry Morgan APRN Active SIMVASTATIN 40 MG TABS 1 qhs SIMVASTATIN 6943168787 6 Active Bill Gonzáles MD Active OMEPRAZOLE 40 MG CPDR 1 qd OMEPRAZOLE 40 MG CPDR 664626 OMEPRAZOLE Inactive ZITHROMAX 250 MG TAB 2 po today, then 1 po q days 2-5 ZITHROMAX 250 MG TAB 0555648 AZITHROMYCIN Inactive TUSSIONEX PENNKINETIC ER 10-8 MG/5ML [...] for 2 days PREDNISONE 20 MG TAB 237985 PREDNISON E Inactive AMOXICILLIN 875 MG TABS 1 tab by mouth twice daily 201 11/15/00 AMOXICILLIN 875 MG TABS 923227 AMOXICILLIN Inactive Encounters Code Encounter Date Provider Facility CPT-61682 Level 4 Est. Patient 10:12:54 ROLL FINISHER Bill holden MD [facility] CPT-30459 Level 4 Est. Patient 20:03:37 ROLL FINISHER Bill holden MD [facility] CPT-35164 Level 3 Est. Patient 16:15:23 ROLL FINISHER Bill holden MD [facility] CPT-21522 Level 4 Est. Patient 23:44:36 CDT Bill holden MD [facility] CPT-78954 Level 3 Est. Patient 14:02:53 ROLL FINISHER Kendra rankin APRN [facility] Procedures Code Procedure Name Date Entry Date Standard Desc ription CPT-OV Office Visit 14:28:59 ROLL FINISHER CPT-OV Office Visit 11:28:00 CDT CPT-OV Office Visit 15:01:24 CDT CPT-OV Office Visit 16:55:58 CDT CPT-OV Office Visit 16:05:31 ROLL FINISHER CPT-OV Office Visit 09:47:16 ROLL FINISHER CPT-OV Office Visit 20:31:04 CDT
--- OUTSIDE RECORDS SUMMARY | 2019-10-04 12:01 | XMS REPORT | Clinical Summary ---
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 F/U EXAM FOLLOW CMPL TX W/HIGH-RISK MED NEC ICD-V67.51 Inactive Francisco J Mata MD Sinusitis ICD-461.9 Inactive Francisco J juarez MD Colon cancer screening ICD-V76.51 Inactive Juan Mata MD Medication List Medication Instructions Start Date Stop Date Generic Name NDC Status Provider Patient Instruction ZOFRAN ODT 4 MG ORAL TBDP 1 every 8 hrs prn OND ANSETRON 50485676077 Active Francisco J Mata MD Active CVS VITAMIN E 1000 UNIT CAPS 1 qd VITAMIN E 73708031104 No Longer Active Francisco J Mata MD Active KLOR-CON M20 20 MEQ CR-TABS 1 qd POTASSIUM CHLORIDE JARRED CR 49249452739 No Longer Active Francisco J Mata MD A ctive VIAGRA 50 MG TABS 1/2 TABLET 1 HR BEFORE BEDTIME 07/29 SILDENAFIL CITRATE 41866407921 No Longer Active Francisco J Mata MD Active MELOXICAM 7.5 MG TABS 1 tab by mouth every 12 hours as needed 20 30/09/22 MELOXICAM 81381434646 No Longer Active Francisco J Mata MD Active AMOXICILLIN 875 MG TABS 1 tab by mouth twice daily 201 11/15/00 AMOXICILLIN 22060329735 No Longer Active Bill Gonzáles MD Acti ve LANOXIN 0.125 MG TABS 1 tab po qd DIGOXIN 44447458467 Ac tive Bill Gonzáles MD Active VIAGRA 100 MG TABS 1/2 po 1 hr before sexual activity SILDENAFIL CITRATE 49082675281 No Longer Active Francisco J Mata MD Active TUSSIONEX PENNKINETIC ER 10-8 MG/5ML LQCR 5ml po q12hr PRN Cough HYDROCOD POLST-CHLORPHEN POLST 80617125092 No Longer Active Franicsco J Mata MD Active ZITHROMAX 250 MG TAB 2 po today, then 1 po q days 2-5 AZITHROMYCIN 59268578828 No Longer Active Francisco J Mata MD A ctive PREDNISONE 20 MG TAB 2 tabs daily for 3 days, 1 t ab daily for 3 days, 1/2 tab daily for 2 days PREDNISONE 48107190226 No Longer Active Kendra Irving APRN Active OMEPRAZOLE 40 MG CPDR 1 qd OMEPRAZOLE 22909 771369 No Longer Active Kendra Irving APRN Active ASPIR-81 81 MG TBEC 1 qd ASPIRIN 73507893378 Activ e Mario Alberto Morfin RMA Active ATENOLOL 50 MG TABS 1 bid ATENOLOL 30410292295 Active Svetlana Clayton Active CLONIDINE HCL 0.1 MG TABS 1 bid CLONIDINE HCL 11312 107090 Active Bill Gonzáles MD Active DAILY MULTIPLE VITAMINS TABS 1 qd MULTIPLE V ITAMIN 20672694870 Active DANNY Tabor Active GARLIC OIL 500 MG TABS 1 qd GARLIC 71669579114 Ac tive Mario Alberto Morfin RMA Active ZETIA 10 MG TABS 1 qd EZETIMIBE 14550001279 Active Nemo Morgan APRN Active BUMETANIDE 2 MG TABS 1qd BUMETANIDE 10267719802 A ctive Nemo Morgan APRN Active SIMVASTATIN 40 MG TABS 1 qhs SIMVASTATIN 0463003734 6 Active Bill Gonzáles MD Active OMEPRAZOLE 40 MG CPDR 1 qd OMEPRAZOLE 40 MG CPDR 392523 OMEPRAZOLE Inactive ZITHROMAX 250 MG TAB 2 po today, then 1 po q days 2-5 ZITHROMAX 250 MG TAB 3390768 AZITHROMYCIN Inactive TUSSIONEX PENNKINETIC ER 10-8 MG/5ML LQCR 5ml po q12hr PRN Cough TUSSIONEX PENNKINETIC ER 10-8 MG/5ML LQCR HYDROCOD POLST-CHLORPHEN POLST Inactive VIAGRA 100 MG TABS 1/2 po 1 hr before sexual activity VIAGRA 100 MG TABS SILDENAFIL CITRATE Inactive MELOXICAM 7.5 MG TABS 1 tab by mouth every 12 hours as needed 20 30/09/22 MELOXICAM 7.5 MG TABS 767307 MELOXICAM Inactive VIAGRA 50 MG TABS 1/2 TABLET 1 HR BEFORE BEDTIME 07/29 VIAGRA 50 MG TABS SILDENAFIL CITRATE Inactive KLOR-CON M20 20 MEQ CR-TABS 1 qd KLOR-CON M20 20 MEQ CR-TABS POTASSIUM CHLORIDE JARRED CR Inactive CVS VITAMIN E 1000 UNIT CAPS 1 qd CVS VITAMIN E 1000 UNIT CAPS 599921 VITAMIN E Inactive PREDNISONE 20 MG TAB 2 tabs daily for 3 days, 1 t ab daily for 3 days, 1/2 tab daily for 2 days PREDNISONE 20 MG TAB 209354 PREDNISON E Inactive AMOXICILLIN 875 MG TABS 1 tab by mouth twice daily 201 11/15/00 AMOXICILLIN 875 MG TABS 950620 AMOXICILLIN Inactive Diagnostic Results Date Name Value Unit Range Description Lab Report: CBC, Comp. Metabolic Panel - Chemistry sodium, serum 143 mmol/L 410-344 5733/12/14 carbon dioxide, venous blood 31.5 mmol/L 21.0-32 [...] Report: CBC, Comp. Metabolic Panel - Hematology leukocyte count, blood 8.8 10^3/MM^3 10*3/mm3 4.6-10.2 erythrocyte (RBC) count 4.75 10^6/MM^3 10*6/mm3 4.69-6.1 3 hemoglobin, blood 15.1 g/dL 13.5-17.5 hematocrit, blood 44.7 % 41.0-53.0 mean corpuscular volume, RBC 94 fL 80-97 mean corpuscular hemoglobin, RBC 31.9 pg 27. 0-31.2 mean corpuscular hemoglobin concentration, RBC 33.8 G/DL % 31.8-35.4 red blood cell distribution width 14.2 % 11 .6-14.8 platelet count 175 10^3/MM^3 10*3/mm3 142-424 Encounters Code Encounter Date Provider Facility CPT-76479 Level 4 New Patient 15:31:29 DIRECTOR SPEECH LANGUAGE Francisco J Mata MD [facility] CPT-80813 Level 4 Est. Patient 10:12:54 DIRECTOR SPEECH LANGUAGE Bill holden MD [facility] CPT-04504 Level 4 Est. Patient 20:03:37 DIRECTOR SPEECH LANGUAGE Bill holden MD [facility] CPT-29838 Level 3 Est. Patient 16:15:23 DIRECTOR SPEECH LANGUAGE Bill holden MD [facility] CPT-02155 Level 4 Est. Patient 23:44:36 CDT Bill holden MD [facility] CPT-75721 Level 3 Est. Patient 14:02:53 DIRECTOR SPEECH LANGUAGE Kendra rankin APRN [facility] Procedures Code Procedure Name Date Entry Date Standard Desc ription CPT-14800 [employer] inc all organs plus proximal aorta and distal IVC - XRAY USE ONLY 11:53:25 DIRECTOR SPEECH LANGUAGE CPT-43275 CMP - LAB USE ONLY 17:29:21 DIRECTOR SPEECH LANGUAGE CPT-65036 CBC - LAB USE ONLY 17:29:21 [facility] CPT-98362 Venipuncture Draw Fee 17:29:21 DIRECTOR SPEECH LANGUAGE CPT-OV Office Visit 14:28:59 DIRECTOR SPEECH LANGUAGE CPT-OV Office Visit 11:28:00 CDT CPT-OV Office Visit 15:01:24 CDT CPT-OV Office Visit 16:55:58 CDT CPT-OV Office Visit 16:05:31 DIRECTOR SPEECH LANGUAGE CPT-OV Office Visit 09:47:16 DIRECTOR SPEECH LANGUAGE CPT-OV Office Visit 20:31:04 CDT
--- OUTSIDE RECORDS SUMMARY | 2019-10-04 12:01 | XMS REPORT | Clinical Summary ---
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 Inactive Francisco J Mata MD 20 31/07/14 BRONCHITIS-ACUTE ICD-466.0 Inactive Kendra Rausch es CRYSTAL INSPECTOR F/U EXAM FOLLOW CMPL TX W/HIGH-RISK MED NEC ICD-V67.51 Inactive Francisco J Mata MD Sinusitis ICD-461.9 Inactive Francisco J juarez MD Colon cancer screening ICD-V76.51 Inactive Juan Mata MD Medication List Medication Instructions Start Date Stop Date Generic Name NDC Status Provider Patient Instruction ZOFRAN ODT 4 MG ORAL TBDP 1 every 8 hrs prn OND ANSETRON 95360839945 Active Francisco J Mata MD Active CVS VITAMIN E 1000 UNIT CAPS 1 qd VITAMIN E 42868507002 No Longer Active Francisco J Mata MD Active KLOR-CON M20 20 MEQ CR-TABS 1 qd POTASSIUM CHLORIDE JARRED CR 37500750206 No Longer Active Francisco J Mata MD A ctive VIAGRA 50 MG TABS 1/2 TABLET 1 HR BEFORE BEDTIME 07/29 SILDENAFIL CITRATE 05086607870 No Longer Active Francisco J Mata MD Active MELOXICAM 7.5 MG TABS 1 tab by mouth every 12 hours as needed 20 30/09/22 MELOXICAM 51425762881 No Longer Active Francisco J Mata MD Active AMOXICILLIN 875 MG TABS 1 tab by mouth twice daily 201 11/15/00 AMOXICILLIN 31471583014 No Longer Active Bill Gonzáles MD Acti ve LANOXIN 0.125 MG TABS 1 tab po qd DIGOXIN 21005734378 Ac tive Bill Gonzáles MD Active VIAGRA 100 MG TABS 1/2 po 1 hr before sexual activity SILDENAFIL CITRATE 25514459428 No Longer Active Francisco J Mata MD Active TUSSIONEX PENNKINETIC ER 10-8 MG/5ML LQCR 5ml po q12hr PRN Cough HYDROCOD POLST-CHLORPHEN POLST 32994139621 No Longer Active Francisco J Mata MD Active ZITHROMAX 250 MG TAB 2 po today, then 1 po q days 2-5 AZITHROMYCIN 53278403192 No Longer Active Francisco J Mata MD A ctive PREDNISONE 20 MG TAB 2 tabs daily for 3 days, 1 t ab daily for 3 days, 1/2 tab daily for 2 days PREDNISONE 75220299365 No Longer Active Kendra Irving APRN Active OMEPRAZOLE 40 MG CPDR 1 qd OMEPRAZOLE 45255 435448 No Longer Active Kendra Irving APRN Active ASPIR-81 81 MG TBEC 1 qd ASPIRIN 67254490059 Activ e Mario Alberto Morfin RMA Active ATENOLOL 50 MG TABS 1 bid ATENOLOL 71597288796 Active Svetlana Clayton Active CLONIDINE HCL 0.1 MG TABS 1 bid CLONIDINE HCL 92284 894851 Active Bill Gonzáles MD Active DAILY MULTIPLE VITAMINS TABS 1 qd MULTIPLE V ITAMIN 84644872466 Active DANNY Tabor Active GARLIC OIL 500 MG TABS 1 qd GARLIC 24051701903 Ac tive Mario Alberto Morfin RMA Active ZETIA 10 MG TABS 1 qd EZETIMIBE 92577770795 Active Nemo Morgan APRN Active BUMETANIDE 2 MG TABS 1qd BUMETANIDE 70155453461 A ctive Nemo Morgan APRN Active SIMVASTATIN 40 MG TABS 1 qhs SIMVASTATIN 5676109565 6 Active Bill Gonzáles MD Active OMEPRAZOLE 40 MG CPDR 1 qd OMEPRAZOLE 40 MG CPDR 296982 OMEPRAZOLE Inactive ZITHROMAX 250 MG TAB 2 po today, then 1 po q days 2-5 ZITHROMAX 250 MG TAB 2529493 AZITHROMYCIN Inactive TUSSIONEX PENNKINETIC ER 10-8 MG/5ML LQCR 5ml po q12hr PRN Cough TUSSIONEX PENNKINETIC ER 10-8 MG/5ML LQCR HYDROCOD POLST-CHLORPHEN POLST Inactive VIAGRA 100 MG TABS 1/2 po 1 hr before sexual activity VIAGRA 100 MG TABS SILDENAFIL CITRATE Inactive MELOXICAM 7.5 MG TABS 1 tab by mouth every 12 hours as needed 20 30/09/22 MELOXICAM 7.5 MG TABS 225175 MELOXICAM Inactive VIAGRA 50 MG TABS 1/2 TABLET 1 HR BEFORE BEDTIME 07/29 VIAGRA 50 MG TABS SILDENAFIL CITRATE Inactive KLOR-CON M20 20 MEQ CR-TABS 1 qd KLOR-CON M20 20 MEQ CR-TABS POTASSIUM CHLORIDE JARRED CR Inactive CVS VITAMIN E 1000 UNIT CAPS 1 qd CVS VITAMIN E 1000 UNIT CAPS 859571 VITAMIN E Inactive PREDNISONE 20 MG TAB 2 tabs daily for 3 days, 1 t ab daily for 3 days, 1/2 tab daily for 2 days PREDNISONE 20 MG TAB 325639 PREDNISON E Inactive AMOXICILLIN 875 MG TABS 1 tab by mouth twice daily 201 11/15/00 AMOXICILLIN 875 MG TABS 706235 AMOXICILLIN Inactive Vital Signs Date Name Value [...] Panel - Chemistry sodium, serum 143 mmol/L 315-045 1160/12/14 carbon dioxide, venous blood 31.5 mmol/L 21.0-32 [...] 142-424 Encounters Code Encounter Date Provider Facility CPT-79361 Level 4 New Patient 15:31:29 [facility] Francisco J Mata MD [facility] CPT-78972 Level 4 Est. Patient 10:12:54 [facility] Bill holden MD [facility] CPT-32202 Level 4 Est. Patient 20:03:37 [facility] Bill holden MD [facility] CPT-66327 Level 3 Est. Patient 16:15:23 [facility] Bill holden MD [facility] CPT-30572 Level 4 Est. Patient 23:44:36 CDT Bill holden MD [facility] CPT-02214 Level 3 Est. Patient 14:02:53 [facility] Kendra Arthur Rudd chucho CONTRERAS [facility] Procedures Code Procedure Name Date Entry Date Standard Desc ription CPT-41854 [employer] inc all organs plus proximal aorta and distal IVC - XRAY USE ONLY 11:53:25 [facility] CPT-23032 CMP - LAB USE ONLY 17:29:21 [facility] CPT-71892 CBC - LAB USE ONLY 17:29:21 [facility] CPT-86578 Venipuncture Draw Fee 17:29:21 [facility] CPT-OV Office Visit 14:28:59 [facility] CPT-OV Office Visit 11:28:00 CDT CPT-OV Office Visit 15:01:24 CDT CPT-OV Office Visit 16:55:58 CDT CPT-OV Office Visit 16:05:31 [facility] CPT-OV Office Visit 09:47:16 [facility] CPT-OV Office Visit 20:31:04 CDT
--- OUTSIDE RECORDS SUMMARY | 2019-10-04 12:01 | XMS REPORT | Clinical Summary ---
Author Author Zoe, Alex Jacobs [facility] Address Unknown Phone Unavailable Allergies, Adverse [...] Coronary atherosclerosis of unspecified type of vessel, [place] or graft Sinusitis 461.9 Active Bill Gonzáles MD Acute sinusitis, unspecified Colon cancer screening V76.51 Active Kendra Yoon APRN Screening for malignant neoplasms of colon BRONCHITIS-ACUTE ICD-466.0 Inactive Kendra josé APRN Medication List Medication Instructions Start Date Stop Date Generic Name NDC Status Provider Patient Instruction MELOXICAM 7.5 MG TABS 1 tab by mouth every 12 hours as needed 10/08 MELOXICAM 49878279832 Active Bill Gonzáles MD Active VIAGRA 50 MG TABS 1/2 TABLET 1 HR BEFORE BEDTIME SILDENAFIL CITRATE 66941281260 Active Essence Benson RMA Active AMOXICILLIN 875 MG TABS 1 tab by mouth twice daily 201 11/15/00 AMOXICILLIN 63401079041 No Longer Active Bill Gonzáles MD Acti ve LANOXIN 0.125 MG TABS 1 tab po qd DIGOXIN 85590013240 Ac tive Bill Gonzáles MD Active VIAGRA 100 MG TABS 1/2 po 1 hr before sexual activity SILDENAFIL CITRATE 44718375812 No Longer Active Francisco J Mata MD Active TUSSIONEX PENNKINETIC ER 10-8 MG/5ML LQCR 5ml po q12hr PRN Cough HYDROCOD POLST-CHLORPHEN POLST 79962523911 No Longer Active Francisco J Mata MD Active ZITHROMAX 250 MG TAB 2 po today, then 1 po q days 2-5 AZITHROMYCIN 39597869206 No Longer Active Francisco J Mata MD A ctive PREDNISONE 20 MG TAB 2 tabs daily for 3 days, 1 t ab daily for 3 days, 1/2 tab daily for 2 days PREDNISONE 56433999804 No Longer Active Kendra Irving APRN Active OMEPRAZOLE 40 MG CPDR 1 qd OMEPRAZOLE 09926 706465 No Longer Active Kendra Irving APRN Active ASPIR-81 81 MG TBEC 1 qd ASPIRIN 18829951389 Matilde e DANNY Tabor Active ATENOLOL 50 MG TABS 1 bid ATENOLOL 32647081139 Acti ve Bill Gonzáles MD Active CLONIDINE HCL 0.1 MG TABS 1 bid CLONIDINE HCL 83352 477408 Active Bill Gonzáles MD Active CVS VITAMIN E 1000 UNIT CAPS 1 qd VITAMIN E 065432 07436 Active DANNY Tabor Active DAILY MULTIPLE VITAMINS TABS 1 qd MULTIPLE V ITAMIN 49816496002 Active DANNY Tabor Active GARLIC OIL 500 MG TABS 1 qd GARLIC 32586551800 Ac tive Mario Alberto Morfin RMMichael Active ZETIA 10 MG TABS 1 qd EZETIMIBE 48002560885 Active Bill Gonzáles MD Active KLOR-CON M20 20 MEQ CR-TABS 1 qd BLAKE Ba CHLORIDE JARRED CR 37542486561 Active Bill Gonzáles MD Active BUMETANIDE 2 MG TABS 1qd BUMETANIDE 09860211622 A ctive Bill Gonzáles MD Active SIMVASTATIN 40 MG TABS 1 qhs SIMVASTATIN 9734076767 6 Active Bill Gonzáles MD Active OMEPRAZOLE 40 MG CPDR 1 qd OMEPRAZOLE 40 MG CPDR 191181 OMEPRAZOLE Inactive ZITHROMAX 250 MG TAB 2 po today, then 1 po q days 2-5 ZITHROMAX 250 MG TAB 4768996 AZITHROMYCIN Inactive TUSSIONEX PENNKINETIC ER 10-8 MG/5ML [...] for 2 days PREDNISONE 20 MG TAB 538586 PREDNISON E Inactive AMOXICILLIN 875 MG TABS 1 tab by mouth twice daily 201 11/15/00 AMOXICILLIN 875 MG TABS 534949 AMOXICILLIN Inactive Vital Signs Date Name Value Unit Range Description blood pressure, diastolic - 8462-4 81 mm[Hg] BP donald blood pressure, systolic - 8480-6 183 mm[Hg] BP sys pulse rate E&M - 8867-4 52 /min H eart rate temperature E&M 97.3 [degF] Body temp erature weight E&M - 3141-9 137 [lb_av] Weigh t Measured Diagnostic Results Date Name Value Unit Range Description Lab Report: Comp. Metabolic Panel, CBC, Lipid Panel, Digoxin, MICROALBUMIN - Chemistry sodium, serum 142 mmol/L 779-279 9743/02/23 potassium, serum 4.7 mmol/L 3.5-5.2 chloride, serum 102 mmol/L 98-107 carbon dioxide, venous blood 29.7 mmol/L 21.0-32 .0 blood glucose 92 mg/dL 65-110 urea nitrogen, blood 17 mg/dL 7-18 creatinine, serum 1.20 mg/dL 0.60-1.30 alanine aminotransferase (SGPT), serum 38 U/L 12-78 aspartate aminotransferase (SGOT), serum 25 U/L 15-37 calcium, serum 8.9 mg/dL 8.5-10.1 bilirubin, serum, total 0.60 mg/dL 0.00-1.00 cholesterol, serum 107 mg/dL 992-615 0918/02/23 triglyceride, serum, fasting 72 mg/dL 30-200 HDL cholesterol, serum 46 mg/dL 32-96 LDL cholesterol, serum 47 mg/dL 0-130 digoxin level, serum 0.0104 ng/mL Units c onverted. See lab report for original value. albumin/creatinine ratio, urine < 30 mg/g mg/g{creat} 0-2 9 Lab Report: Comp. Metabolic Panel, CBC, Lipid Panel, Digoxin, MICROALBUMIN - Hematology leukocyte count, blood 6.6 10^3/MM^3 10*3/mm3 4.6-10.2 erythrocyte (RBC) count 4.74 10^6/MM^3 10*6/mm3 4.69-6.1 3 hemoglobin, blood 15.4 g/dL 13.5-17.5 hematocrit, blood 44.9 % 41.0-53.0 mean corpuscular volume, RBC 95 fL 80-97 mean corpuscular hemoglobin, RBC 32.4 pg 27. 0-31.2 mean corpuscular hemoglobin concentration, RBC 34.2 G/DL % 31.8-35.4 red blood cell distribution width 14.9 % 11 .6-14.8 platelet count 183 10^3/MM^3 10*3/mm3 142-424 Lab Report: Comp. Metabolic Panel, CBC, Lipid Panel, Digoxin, MICROALBUMIN - Lab microalbumin, urine 10 0-19 Office Visit: CHECKUP - Chemistry cholesterol, target level 200 mg/dL LDL target level 100 mg/dL HDL cholesterol, serum, target level 40 mg/dL triglyceride, target level 150 mg/dL Encounters Code Encounter Date Provider Facility CPT-59188 Level 4 Est. Patient 10:12:54 FRONT FACER Bill holden MD [facility] CPT-37742 Level 4 Est. Patient 20:03:37 FRONT FACER Bill holden MD [facility] CPT-07788 Level 3 Est. Patient 16:15:23 FRONT FACER Bill holden MD [facility] CPT-30290 Level 4 Est. Patient 23:44:36 CDT Blil holden MD [facility] CPT-23576 Level 3 Est. Patient 14:02:53 FRONT FACER Kendra rankin APRN [facility] Procedures Code Procedure Name Date Entry Date Standard Desc ription CPT-OV Office Visit 14:28:59 FRONT FACER CPT-OV Office Visit 11:28:00 CDT CPT-OV Office Visit 15:01:24 CDT CPT-OV Office Visit 16:55:58 CDT CPT-OV Office Visit 16:05:31 FRONT FACER CPT-OV Office Visit 09:47:16 FRONT FACER CPT-OV Office Visit 20:31:04 CDT
--- OUTSIDE RECORDS SUMMARY | 2019-10-04 12:01 | XMS REPORT | Clinical Summary ---
Author Author Zoe, Alex Jacobs [facility] Address Unknown Phone Unavailable Allergies, Adverse Reactions, Alerts Allergy Name Reaction Description Start Date Severity Status Pr ovider NKDA Critical Active Knedra Yoon APR N Conditions or Problems Problem [...] Coronary atherosclerosis of unspecified type of vessel, [place] or graft Sinusitis 461.9 Active Bill Gonzáles MD Acute sinusitis, unspecified Colon cancer screening V76.51 Active Kendra Yoon APRN Screening for malignant neoplasms of colon BRONCHITIS-ACUTE ICD-466.0 Inactive Kendra josé APRN Medication List Medication Instructions Start Date Stop Date Generic Name NDC Status Provider Patient Instruction MELOXICAM 7.5 MG TABS 1 tab by mouth every 12 hours as needed 10/08 MELOXICAM 38109148147 Active Bill Gonzáles MD Active VIAGRA 50 MG TABS 1/2 TABLET 1 HR BEFORE BEDTIME SILDENAFIL CITRATE 39672031601 Active Essence Benson RMA Active AMOXICILLIN 875 MG TABS 1 tab by mouth twice daily 201 11/15/00 AMOXICILLIN 60804269875 No Longer Active Bill Gonzáles MD Acti ve LANOXIN 0.125 MG TABS 1 tab po qd DIGOXIN 96337090306 Ac tive Bill Gonzáles MD Active VIAGRA 100 MG TABS 1/2 po 1 hr before sexual activity SILDENAFIL CITRATE 58809562253 No Longer Active Francisco J Mata MD Active TUSSIONEX PENNKINETIC ER 10-8 MG/5ML LQCR 5ml po q12hr PRN Cough HYDROCOD POLST-CHLORPHEN POLST 44352668918 No Longer Active Francisco J Mata MD Active ZITHROMAX 250 MG TAB 2 po today, then 1 po q days 2-5 AZITHROMYCIN 35171187640 No Longer Active Francisco J Mata MD A ctive PREDNISONE 20 MG TAB 2 tabs daily for 3 days, 1 t ab daily for 3 days, 1/2 tab daily for 2 days PREDNISONE 14447400918 No Longer Active Kendra Irving APRN Active OMEPRAZOLE 40 MG CPDR 1 qd OMEPRAZOLE 76285 707846 No Longer Active Kendra Irving APRN Active ASPIR-81 81 MG TBEC 1 qd ASPIRIN 96423881261 DANNY [place] Active ATENOLOL 50 MG TABS 1 bid ATENOLOL 87591310985 Active Svetlana Clayton Active CLONIDINE HCL 0.1 MG TABS 1 bid CLONIDINE HCL 97796 853325 Active Bill Gonzáles MD Active CVS VITAMIN E 1000 UNIT CAPS 1 qd VITAMIN E 455900 07336 Active DANNY Tabor Active DAILY MULTIPLE VITAMINS TABS 1 qd MULTIPLE V ITAMIN 73448038032 Active DANNY Tabor Active GARLIC OIL 500 MG TABS 1 qd GARLIC 78702965932 Ac tive Mario Alberto Morfin RMMichael Active ZETIA 10 MG TABS 1 qd EZETIMIBE 87100472891 Active Nemo Eddie JINGLE WRITER Active KLOR-CON M20 20 MEQ CR-TABS 1 qd BLAKE M CHLORIDE JARRED CR 14873573857 Active Bill Gonzáles MD Active BUMETANIDE 2 MG TABS 1qd BUMETANIDE 39041152054 A ctive Nemolarry Morgan APRN Active SIMVASTATIN 40 MG TABS 1 qhs SIMVASTATIN 2794567535 6 Active Bill Gonzáles MD Active OMEPRAZOLE 40 MG CPDR 1 qd OMEPRAZOLE 40 MG CPDR 374971 OMEPRAZOLE Inactive ZITHROMAX 250 MG TAB 2 po today, then 1 po q days 2-5 ZITHROMAX 250 MG TAB 8795838 AZITHROMYCIN Inactive TUSSIONEX PENNKINETIC ER 10-8 MG/5ML [...] for 2 days PREDNISONE 20 MG TAB 373867 PREDNISON E Inactive AMOXICILLIN 875 MG TABS 1 tab by mouth twice daily 201 11/15/00 AMOXICILLIN 875 MG TABS 619569 AMOXICILLIN Inactive Encounters Code Encounter Date Provider Facility CPT-05197 Level 4 Est. Patient 10:12:54 PLASTIC SURGERY NURSE Bill holden MD [facility] CPT-10189 Level 4 Est. Patient 20:03:37 PLASTIC SURGERY NURSE Bill holden MD [facility] CPT-44685 Level 3 Est. Patient 16:15:23 PLASTIC SURGERY NURSE Bill holden MD [facility] CPT-92121 Level 4 Est. Patient 23:44:36 CDT Bill holden MD [facility] CPT-52041 Level 3 Est. Patient 14:02:53 PLASTIC SURGERY NURSE Kendra rankin APRN [facility] Procedures Code Procedure Name Date Entry Date Standard Desc ription CPT-OV Office Visit 14:28:59 PLASTIC SURGERY NURSE CPT-OV Office Visit 11:28:00 CDT CPT-OV Office Visit 15:01:24 CDT CPT-OV Office Visit 16:55:58 CDT CPT-OV Office Visit 16:05:31 PLASTIC SURGERY NURSE CPT-OV Office Visit 09:47:16 PLASTIC SURGERY NURSE CPT-OV Office Visit 20:31:04 CDT
--- OUTSIDE RECORDS SUMMARY | 2019-10-04 12:02 | XMS REPORT | Clinical Summary ---
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 Inactive Francisco J Mata MD 20 31/07/14 BRONCHITIS-ACUTE ICD-466.0 Inactive Kendra Rausch es BILLET CHECKER F/U EXAM FOLLOW CMPL TX W/HIGH-RISK MED NEC ICD-V67.51 Inactive Francisco J Mata MD Sinusitis ICD-461.9 Inactive Francisco J juarez MD Colon cancer screening ICD-V76.51 Inactive Juan Mata MD Medication List Medication Instructions Start Date Stop Date Generic Name NDC Status Provider Patient Instruction ZOFRAN ODT 4 MG ORAL TBDP 1 every 8 hrs prn OND ANSETRON 12706431819 Active Francisco J Mata MD Active CVS VITAMIN E 1000 UNIT CAPS 1 qd VITAMIN E 81175906377 No Longer Active Francisco J Mata MD Active KLOR-CON M20 20 MEQ CR-TABS 1 qd POTASSIUM CHLORIDE JARRED CR 44642133289 No Longer Active Francisco J Mata MD A ctive VIAGRA 50 MG TABS 1/2 TABLET 1 HR BEFORE BEDTIME 07/29 SILDENAFIL CITRATE 14638873148 No Longer Active Francisco J Mata MD Active MELOXICAM 7.5 MG TABS 1 tab by mouth every 12 hours as needed 20 30/09/22 MELOXICAM 76777554287 No Longer Active Francisco J Mata MD Active AMOXICILLIN 875 MG TABS 1 tab by mouth twice daily 201 11/15/00 AMOXICILLIN 99230649721 No Longer Active Bill Gonzáles MD Acti ve LANOXIN 0.125 MG TABS 1 tab po qd DIGOXIN 06729245245 Ac tive Bill Gonzáles MD Active VIAGRA 100 MG TABS 1/2 po 1 hr before sexual activity SILDENAFIL CITRATE 00084818715 No Longer Active Francisco J Mata MD Active TUSSIONEX PENNKINETIC ER 10-8 MG/5ML LQCR 5ml po q12hr PRN Cough HYDROCOD POLST-CHLORPHEN POLST 84104925801 No Longer Active Francisco J Mata MD Active ZITHROMAX 250 MG TAB 2 po today, then 1 po q days 2-5 AZITHROMYCIN 25441724571 No Longer Active Francisco J Mata MD A ctive PREDNISONE 20 MG TAB 2 tabs daily for 3 days, 1 t ab daily for 3 days, 1/2 tab daily for 2 days PREDNISONE 04788278309 No Longer Active Kendra Irving APRN Active OMEPRAZOLE 40 MG CPDR 1 qd OMEPRAZOLE 88795 726261 No Longer Active Kendra Irving APRN Active ASPIR-81 81 MG TBEC 1 qd ASPIRIN 57709274572 Activ e Mario Alberto Morfin RMA Active ATENOLOL 50 MG TABS 1 bid ATENOLOL 98686528775 Active Svetlana Clayton Active CLONIDINE HCL 0.1 MG TABS 1 bid CLONIDINE HCL 75108 947390 Active Bill Gonzáles MD Active DAILY MULTIPLE VITAMINS TABS 1 qd MULTIPLE V ITAMIN 56183383751 Active DANNY Tabor Active GARLIC OIL 500 MG TABS 1 qd GARLIC 07425593863 Ac tive Mario Alberto Morfin RMA Active ZETIA 10 MG TABS 1 qd EZETIMIBE 62892110517 Active Nemo Morgan APRN Active BUMETANIDE 2 MG TABS 1qd BUMETANIDE 73679368560 A ctive Nemo Morgan APRN Active SIMVASTATIN 40 MG TABS 1 qhs SIMVASTATIN 5394385157 6 Active Bill Gonzáles MD Active OMEPRAZOLE 40 MG CPDR 1 qd OMEPRAZOLE 40 MG CPDR 106044 OMEPRAZOLE Inactive ZITHROMAX 250 MG TAB 2 po today, then 1 po q days 2-5 ZITHROMAX 250 MG TAB 6710106 AZITHROMYCIN Inactive TUSSIONEX PENNKINETIC ER 10-8 MG/5ML LQCR 5ml po q12hr PRN Cough TUSSIONEX PENNKINETIC ER 10-8 MG/5ML LQCR HYDROCOD POLST-CHLORPHEN POLST Inactive VIAGRA 100 MG TABS 1/2 po 1 hr before sexual activity VIAGRA 100 MG TABS SILDENAFIL CITRATE Inactive MELOXICAM 7.5 MG TABS 1 tab by mouth every 12 hours as needed 20 30/09/22 MELOXICAM 7.5 MG TABS 900599 MELOXICAM Inactive VIAGRA 50 MG TABS 1/2 TABLET 1 HR BEFORE BEDTIME 07/29 VIAGRA 50 MG TABS SILDENAFIL CITRATE Inactive KLOR-CON M20 20 MEQ CR-TABS 1 qd KLOR-CON M20 20 MEQ CR-TABS POTASSIUM CHLORIDE JARRED CR Inactive CVS VITAMIN E 1000 UNIT CAPS 1 qd CVS VITAMIN E 1000 UNIT CAPS 638051 VITAMIN E Inactive PREDNISONE 20 MG TAB 2 tabs daily for 3 days, 1 t ab daily for 3 days, 1/2 tab daily for 2 days PREDNISONE 20 MG TAB 952156 PREDNISON E Inactive AMOXICILLIN 875 MG TABS 1 tab by mouth twice daily 201 11/15/00 AMOXICILLIN 875 MG TABS 854796 AMOXICILLIN Inactive Diagnostic Results Date Name Value Unit Range Description Lab Report: CBC, Comp. Metabolic Panel - Chemistry sodium, serum 143 mmol/L 510-264 3939/12/14 carbon dioxide, venous blood 31.5 mmol/L 21.0-32 [...] 142-424 Encounters Code Encounter Date Provider Facility CPT-88449 Level 4 New Patient 15:31:29 SATELLITE PROJECT SITE MONITOR Francisco J Mata MD [facility] CPT-90688 Level 4 Est. Patient 10:12:54 SATELLITE PROJECT SITE MONITOR Bill holden MD [facility] CPT-63155 Level 4 Est. Patient 20:03:37 SATELLITE PROJECT SITE MONITOR Bill holden MD [facility] CPT-04459 Level 3 Est. Patient 16:15:23 SATELLITE PROJECT SITE MONITOR Bill holden MD [facility] CPT-63937 Level 4 Est. Patient 23:44:36 CDT Bill holden MD [facility] CPT-01142 Level 3 Est. Patient 14:02:53 SATELLITE PROJECT SITE MONITOR Kendra rankin APRN [facility] Procedures Code Procedure Name Date Entry Date Standard Desc ription CPT-39370 Sono [employer]d [employer] inc all organs plus proximal aorta and distal IVC - XRAY USE ONLY 11:53:25 SATELLITE PROJECT SITE MONITOR CPT-66478 CMP - LAB USE ONLY 17:29:21 SATELLITE PROJECT SITE MONITOR CPT-78241 CBC - LAB USE ONLY 17:29:21 [facility] CPT-52148 Venipuncture Draw Fee 17:29:21 SATELLITE PROJECT SITE MONITOR CPT-OV Office Visit 14:28:59 SATELLITE PROJECT SITE MONITOR CPT-OV Office Visit 11:28:00 CDT CPT-OV Office Visit 15:01:24 CDT CPT-OV Office Visit 16:55:58 CDT CPT-OV Office Visit 16:05:31 SATELLITE PROJECT SITE MONITOR CPT-OV Office Visit 09:47:16 SATELLITE PROJECT SITE MONITOR CPT-OV Office Visit 20:31:04 CDT
--- OUTSIDE RECORDS SUMMARY | 2019-10-04 12:02 | XMS REPORT | Clinical Summary ---
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 F/U EXAM FOLLOW CMPL TX W/HIGH-RISK MED NEC V67.51 Act brad Kendra Irving APRN Follow-up examination follow ing treatment with high-risk medication, not elsewhere classified CAD 414.00 Active Bill Gonzáles MD Coronary atherosclerosis of unspecified type of vessel, [place] or graft Sinusitis 461.9 Active Bill Gonzáles MD Acute sinusitis, unspecified Colon cancer screening V76.51 Active Kendra Yoon APRN Screening for malignant neoplasms of colon BRONCHITIS-ACUTE ICD-466.0 Inactive Kendra josé APRN Medication List Medication Instructions Start Date Stop Date Generic Name NDC Status Provider Patient Instruction MELOXICAM 7.5 MG TABS 1 tab by mouth every 12 hours as needed 10/08 MELOXICAM 44819705490 Active Bill Gonzáles MD Active VIAGRA 50 MG TABS 1/2 TABLET 1 HR BEFORE BEDTIME SILDENAFIL CITRATE 10461423772 Active Essence Benson RMA Active AMOXICILLIN 875 MG TABS 1 tab by mouth twice daily 201 11/15/00 AMOXICILLIN 04887838860 No Longer Active Bill Gonzáles MD Acti ve LANOXIN 0.125 MG TABS 1 tab po qd DIGOXIN 95676426893 Ac tive Bill Gonzáles MD Active VIAGRA 100 MG TABS 1/2 po 1 hr before sexual activity SILDENAFIL CITRATE 10691616487 No Longer Active Francisco J Mata MD Active TUSSIONEX PENNKINETIC ER 10-8 MG/5ML LQCR 5ml po q12hr PRN Cough HYDROCOD POLST-CHLORPHEN POLST 26956918532 No Longer Active Francisco J Mata MD Active ZITHROMAX 250 MG TAB 2 po today, then 1 po q days 2-5 AZITHROMYCIN 15493851300 No Longer Active Francisco J Mata MD A ctive PREDNISONE 20 MG TAB 2 tabs daily for 3 days, 1 t ab daily for 3 days, 1/2 tab daily for 2 days PREDNISONE 18418943106 No Longer Active Kendra Irving APRN Active OMEPRAZOLE 40 MG CPDR 1 qd OMEPRAZOLE 87214 723242 No Longer Active Kendra Irving APRN Active ASPIR-81 81 MG TBEC 1 qd ASPIRIN 20485501166 DANNY [place] Active ATENOLOL 50 MG TABS 1 bid ATENOLOL 51902770572 Active Svetlana Clayton Active CLONIDINE HCL 0.1 MG TABS 1 bid CLONIDINE HCL 10581 795179 Active Bill Gonzáles MD Active CVS VITAMIN E 1000 UNIT CAPS 1 qd VITAMIN E 643823 25181 Active DANNY Tabor Active DAILY MULTIPLE VITAMINS TABS 1 qd MULTIPLE V ITAMIN 62793945299 Active DANNY Tabor Active GARLIC OIL 500 MG TABS 1 qd GARLIC 36390736095 Ac tive Mario Alberto Morfin RMMichael Active ZETIA 10 MG TABS 1 qd EZETIMIBE 36925304744 Active Bill Gonzáles MD Active KLOR-CON M20 20 MEQ CR-TABS 1 qd BLAKE Ba CHLORIDE JARRED CR 12049776143 Active Bill Gonzáles MD Active BUMETANIDE 2 MG TABS 1qd BUMETANIDE 13513058876 A ctive Bill Gonzáles MD Active SIMVASTATIN 40 MG TABS 1 qhs SIMVASTATIN 0744672897 6 Active Bill Gonzáles MD Active OMEPRAZOLE 40 MG CPDR 1 qd OMEPRAZOLE 40 MG CPDR 422981 OMEPRAZOLE Inactive ZITHROMAX 250 MG TAB 2 po today, then 1 po q days 2-5 ZITHROMAX 250 MG TAB 5877917 AZITHROMYCIN Inactive TUSSIONEX PENNKINETIC ER 10-8 MG/5ML [...] for 2 days PREDNISONE 20 MG TAB 585616 PREDNISON E Inactive AMOXICILLIN 875 MG TABS 1 tab by mouth twice daily 201 11/15/00 AMOXICILLIN 875 MG TABS 686341 AMOXICILLIN Inactive Vital Signs Date Name Value [...] MICROALBUMIN - Chemistry sodium, serum 142 mmol/L 347-781 9619/02/23 potassium, serum 4.7 mmol/L 3.5-5.2 chloride, serum 102 mmol/L 98-107 carbon dioxide, venous blood 29.7 mmol/L 21.0-32 .0 blood glucose 92 mg/dL 65-110 urea nitrogen, blood 17 mg/dL 7-18 creatinine, serum 1.20 mg/dL 0.60-1.30 alanine aminotransferase (SGPT), serum 38 U/L 12-78 aspartate aminotransferase (SGOT), serum 25 U/L 15-37 calcium, serum 8.9 mg/dL 8.5-10.1 bilirubin, serum, total 0.60 mg/dL 0.00-1.00 cholesterol, serum 107 mg/dL 190-268 1831/02/23 triglyceride, serum, fasting 72 mg/dL 30-200 HDL [...] mg/dL Encounters Code Encounter Date Provider Facility CPT-49338 Level 4 Est. 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 Patient 20:03:37 DOCTOR ASSISTANT Bill holden MD [facility] CPT-00815 Level 3 Est. Patient 16:15:23 DOCTOR ASSISTANT Bill holden MD [facility] CPT-70874 Level 4 Est. Patient 23:44:36 CDT Bill holden MD [facility] CPT-10330 Level 3 Est. Patient 14:02:53 DOCTOR ASSISTANT Kendra rankin APRN [facility] Procedures Code Procedure Name Date Entry Date Standard Desc ription CPT-OV Office Visit 14:28:59 DOCTOR ASSISTANT CPT-OV Office Visit 11:28:00 CDT CPT-OV Office Visit 15:01:24 CDT CPT-OV Office Visit 16:55:58 CDT CPT-OV Office Visit 16:05:31 DOCTOR ASSISTANT CPT-OV Office Visit 09:47:16 DOCTOR ASSISTANT CPT-OV Office Visit 20:31:04 CDT
--- OUTSIDE RECORDS SUMMARY | 2019-10-04 12:02 | XMS REPORT | Clinical Summary ---
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/U EXAM FOLLOW CMPL TX W/HIGH-RISK MED NEC ICD-V67.51 Inactive Francisco J Mata MD Sinusitis ICD-461.9 Inactive Francisco J juarez MD Colon cancer screening ICD-V76.51 Inactive Juan Mata MD Medication List Medication Instructions Start Date Stop Date Generic Name NDC Status Provider Patient Instruction ZOFRAN ODT 4 MG ORAL TBDP 1 every 8 hrs prn OND ANSETRON 65817577010 Active Francisco J Mata MD Active CVS VITAMIN E 1000 UNIT CAPS 1 qd VITAMIN E 71156911054 No Longer Active Francisco J Mata MD Active KLOR-CON M20 20 MEQ CR-TABS 1 qd POTASSIUM CHLORIDE JARRED CR 09704046394 No Longer Active Francisco J Mata MD A ctive VIAGRA 50 MG TABS 1/2 TABLET 1 HR BEFORE BEDTIME 07/29 SILDENAFIL CITRATE 31345990384 No Longer Active Francisco J Mata MD Active MELOXICAM 7.5 MG TABS 1 tab by mouth every 12 hours as needed 20 30/09/22 MELOXICAM 36497092089 No Longer Active Francisco J Mata MD Active AMOXICILLIN 875 MG TABS 1 tab by mouth twice daily 201 11/15/00 AMOXICILLIN 24679948169 No Longer Active Bill Gonzáles MD Acti ve LANOXIN 0.125 MG TABS 1 tab po qd DIGOXIN 69942478313 Ac tive Bill Gonzáles MD Active VIAGRA 100 MG TABS 1/2 po 1 hr before sexual activity SILDENAFIL CITRATE 84836772123 No Longer Active Francisco J Mata MD Active TUSSIONEX PENNKINETIC ER 10-8 MG/5ML LQCR 5ml po q12hr PRN Cough HYDROCOD POLST-CHLORPHEN POLST 75444378028 No Longer Active Francisco J Mata MD Active ZITHROMAX 250 MG TAB 2 po today, then 1 po q days 2-5 AZITHROMYCIN 98078682959 No Longer Active Francisco J Mata MD A ctive PREDNISONE 20 MG TAB 2 tabs daily for 3 days, 1 t ab daily for 3 days, 1/2 tab daily for 2 days PREDNISONE 70721654996 No Longer Active Kendra Irving APRN Active OMEPRAZOLE 40 MG CPDR 1 qd OMEPRAZOLE 58166 657196 No Longer Active Kendra Irving APRN Active ASPIR-81 81 MG TBEC 1 qd ASPIRIN 26017189650 Activ e DANNY Tabor Active ATENOLOL 50 MG TABS 1 bid ATENOLOL 79426581705 Active Svetlana Clayton Active CLONIDINE HCL 0.1 MG TABS 1 bid CLONIDINE HCL 02602 533245 Active Bill Gonzáles MD Active DAILY MULTIPLE VITAMINS TABS 1 qd MULTIPLE V ITAMIN 40299335890 Active DANNY Tabor Active GARLIC OIL 500 MG TABS 1 qd GARLIC 40150977320 Ac tive DANNY Tabor Active ZETIA 10 MG TABS 1 qd EZETIMIBE 70420453337 Active Nemo Morgan APRN Active BUMETANIDE 2 MG TABS 1qd BUMETANIDE 04790015018 A ctive Nemo Morgan APRN Active SIMVASTATIN 40 MG TABS 1 qhs SIMVASTATIN 9811774168 6 Active Bill Gonzáles MD Active OMEPRAZOLE 40 MG CPDR 1 qd OMEPRAZOLE 40 MG CPDR 356149 OMEPRAZOLE Inactive ZITHROMAX 250 MG TAB 2 po today, then 1 po q days 2-5 ZITHROMAX 250 MG TAB 0434636 AZITHROMYCIN Inactive TUSSIONEX PENNKINETIC ER 10-8 MG/5ML LQCR 5ml po q12hr PRN Cough TUSSIONEX PENNKINETIC ER 10-8 MG/5ML LQCR HYDROCOD POLST-CHLORPHEN POLST Inactive VIAGRA 100 MG TABS 1/2 po 1 hr before sexual activity VIAGRA 100 MG TABS SILDENAFIL CITRATE Inactive MELOXICAM 7.5 MG TABS 1 tab by mouth every 12 hours as needed 30/09/22 MELOXICAM 7.5 MG TABS 960170 MELOXICAM Inactive VIAGRA 50 MG TABS 1/2 TABLET 1 HR BEFORE BEDTIME 07/29 VIAGRA 50 MG TABS SILDENAFIL CITRATE Inactive KLOR-CON M20 20 MEQ CR-TABS 1 qd KLOR-CON M20 20 MEQ CR-TABS POTASSIUM CHLORIDE JARRED CR Inactive CVS VITAMIN E 1000 UNIT CAPS 1 qd CVS VITAMIN E 1000 UNIT CAPS 930736 VITAMIN E Inactive PREDNISONE 20 MG TAB 2 tabs daily for 3 days, 1 t ab daily for 3 days, 1/2 tab daily for 2 days PREDNISONE 20 MG TAB 448418 PREDNISON E Inactive AMOXICILLIN 875 MG TABS 1 tab by mouth twice daily 201 11/15/00 AMOXICILLIN 875 MG TABS 426584 AMOXICILLIN Inactive Diagnostic Results Date Name Value Unit Range Description Lab Report: CBC, Comp. Metabolic Panel - Chemistry sodium, serum 143 mmol/L 849-174 4975/12/14 carbon dioxide, venous blood 31.5 mmol/L 21.0-32 [...] 142-424 Encounters Code Encounter Date Provider Facility CPT-21221 Level 4 New Patient 15:31:29 BAND SAWYER Francisco J Mata MD [facility] CPT-66254 Level 4 Est. Patient 10:12:54 BAND SAWYER Bill holden MD [facility] CPT-34206 Level 4 Est. Patient 20:03:37 BAND SAWYER Bill holden MD [facility] CPT-07485 Level 3 Est. Patient 16:15:23 BAND SAWYER Bill holden MD [facility] CPT-14309 Level 4 Est. Patient 23:44:36 CDT Bill holden MD [facility] CPT-96607 Level 3 Est. Patient 14:02:53 BAND SAWYER Kendra rankin APRN [facility] Procedures Code Procedure Name Date Entry Date Standard Desc ription CPT-83313 CMP - LAB USE ONLY 17:29:21 BAND SAWYER CPT-33171 CBC - LAB USE ONLY 17:29:21 BAND SAWYER CPT-96296 Venipuncture Draw Fee 17:29:21 BAND SAWYER CPT-OV Office Visit 14:28:59 BAND SAWYER CPT-OV Office Visit 11:28:00 CDT CPT-OV Office Visit 15:01:24 CDT CPT-OV Office Visit 16:55:58 CDT CPT-OV Office Visit 16:05:31 BAND SAWYER CPT-OV Office Visit 09:47:16 BAND SAWYER CPT-OV Office Visit 20:31:04 CDT
--- OUTSIDE RECORDS SUMMARY | 2019-10-04 12:02 | XMS REPORT | Clinical Summary ---
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 F/U EXAM FOLLOW CMPL TX W/HIGH-RISK MED NEC V67.51 Act brad Kendra Irving APRN Follow-up examination follow ing treatment with high-risk medication, not elsewhere classified CAD 414.00 Active Bill Gonzáles MD Coronary atherosclerosis of unspecified type of vessel, [place] or graft Sinusitis 461.9 Active Bill Gonzáles MD Acute sinusitis, unspecified Colon cancer screening V76.51 Active Kendra Yoon APRN Screening for malignant neoplasms of colon BRONCHITIS-ACUTE ICD-466.0 Inactive Kendra josé APRN Medication List Medication Instructions Start Date Stop Date Generic Name NDC Status Provider Patient Instruction MELOXICAM 7.5 MG TABS 1 tab by mouth every 12 hours as needed 10/08 MELOXICAM 88285886530 Active Bill Gonzáles MD Active VIAGRA 50 MG TABS 1/2 TABLET 1 HR BEFORE BEDTIME SILDENAFIL CITRATE 12211460309 Active Essence Benson RMA Active AMOXICILLIN 875 MG TABS 1 tab by mouth twice daily 201 11/15/00 AMOXICILLIN 94684673073 No Longer Active Bill Gonzáles MD Acti ve LANOXIN 0.125 MG TABS 1 tab po qd DIGOXIN 04719478374 Ac tive Bill Gonzáles MD Active VIAGRA 100 MG TABS 1/2 po 1 hr before sexual activity SILDENAFIL CITRATE 71218979541 No Longer Active Francisco J Mata MD Active TUSSIONEX PENNKINETIC ER 10-8 MG/5ML LQCR 5ml po q12hr PRN Cough HYDROCOD POLST-CHLORPHEN POLST 10072619172 No Longer Active Francisco J Mata MD Active ZITHROMAX 250 MG TAB 2 po today, then 1 po q days 2-5 AZITHROMYCIN 54282431302 No Longer Active Francisco J Mata MD A ctive PREDNISONE 20 MG TAB 2 tabs daily for 3 days, 1 t ab daily for 3 days, 1/2 tab daily for 2 days PREDNISONE 22598928326 No Longer Active Kendra Irving APRN Active OMEPRAZOLE 40 MG CPDR 1 qd OMEPRAZOLE 99663 673340 No Longer Active Kendra Irving APRN Active ASPIR-81 81 MG TBEC 1 qd ASPIRIN 08358075031 ADNNY [place] Active ATENOLOL 50 MG TABS 1 bid ATENOLOL 76947491728 Active Svetlana Clayton Active CLONIDINE HCL 0.1 MG TABS 1 bid CLONIDINE HCL 35135 823889 Active Bill Gonzáles MD Active CVS VITAMIN E 1000 UNIT CAPS 1 qd VITAMIN E 741034 21233 Active DANNY Tabor Active DAILY MULTIPLE VITAMINS TABS 1 qd MULTIPLE V ITAMIN 78347634248 Active DANNY Tabor Active GARLIC OIL 500 MG TABS 1 qd GARLIC 11118767483 Ac tive Mario Alberto Morfin RMMichael Active ZETIA 10 MG TABS 1 qd EZETIMIBE 81735006374 Active Bill Gonzáles MD Active KLOR-CON M20 20 MEQ CR-TABS 1 qd BLAKE Ba CHLORIDE JARRED CR 96643258474 Active Bill Gonzáles MD Active BUMETANIDE 2 MG TABS 1qd BUMETANIDE 79562555809 A ctive Bill Gonzáles MD Active SIMVASTATIN 40 MG TABS 1 qhs SIMVASTATIN 0249656834 6 Active Bill Gonzáles MD Active OMEPRAZOLE 40 MG CPDR 1 qd OMEPRAZOLE 40 MG CPDR 897847 OMEPRAZOLE Inactive ZITHROMAX 250 MG TAB 2 po today, then 1 po q days 2-5 ZITHROMAX 250 MG TAB 5197443 AZITHROMYCIN Inactive TUSSIONEX PENNKINETIC ER 10-8 MG/5ML [...] for 2 days PREDNISONE 20 MG TAB 288527 PREDNISON E Inactive AMOXICILLIN 875 MG TABS 1 tab by mouth twice daily 201 11/15/00 AMOXICILLIN 875 MG TABS 821762 AMOXICILLIN Inactive Vital Signs Date Name Value [...] MICROALBUMIN - Chemistry sodium, serum 142 mmol/L 751-568 2752/02/23 potassium, serum 4.7 mmol/L 3.5-5.2 chloride, serum 102 mmol/L 98-107 carbon dioxide, venous blood 29.7 mmol/L 21.0-32 .0 blood glucose 92 mg/dL 65-110 urea nitrogen, blood 17 mg/dL 7-18 creatinine, serum 1.20 mg/dL 0.60-1.30 alanine aminotransferase (SGPT), serum 38 U/L 12-78 aspartate aminotransferase (SGOT), serum 25 U/L 15-37 calcium, serum 8.9 mg/dL 8.5-10.1 bilirubin, serum, total 0.60 mg/dL 0.00-1.00 cholesterol, serum 107 mg/dL 288-570 7560/02/23 triglyceride, serum, fasting 72 mg/dL 30-200 HDL [...] mg/dL Encounters Code Encounter Date Provider Facility CPT-48598 Level 4 Est. 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 Patient 20:03:37 INSPECTOR [employer] Bill holden MD [facility] CPT-91051 Level 3 Est. Patient 16:15:23 INSPECTOR [employer]ODUCTION [employer]S Bill holden MD [facility] CPT-17360 Level 4 Est. Patient 23:44:36 CDT Bill holden MD [facility] CPT-18732 Level 3 Est. Patient 14:02:53 INSPECTOR [employer] Kendra rankin APRN [facility] Procedures Code Procedure Name Date Entry Date Standard Desc ription CPT-OV Office Visit 14:28:59 INSPECTOR [employer]ODUCTION [employer]S CPT-OV Office Visit 11:28:00 CDT CPT-OV Office Visit 15:01:24 CDT CPT-OV Office Visit 16:55:58 CDT CPT-OV Office Visit 16:05:31 INSPECTOR [employer] CPT-OV Office Visit 09:47:16 INSPECTOR [employer] CPT-OV Office Visit 20:31:04 CDT
--- OUTSIDE RECORDS SUMMARY | 2019-10-04 12:02 | XMS REPORT | Clinical Summary ---
Author Author Zoe, Alex Jacobs [facility] Address Unknown Phone Unavailable Allergies, Adverse [...] Coronary atherosclerosis of unspecified type of vessel, [place] or graft Sinusitis 461.9 Active Bill Gonzáles MD Acute sinusitis, unspecified Colon cancer screening V76.51 Active Kendra Yoon APRN Screening for malignant neoplasms of colon BRONCHITIS-ACUTE ICD-466.0 Inactive Kendra josé APRN Medication List Medication Instructions Start Date Stop Date Generic Name NDC Status Provider Patient Instruction MELOXICAM 7.5 MG TABS 1 tab by mouth every 12 hours as needed 10/08 MELOXICAM 42361497128 Active Bill Gonzáles MD Active VIAGRA 50 MG TABS 1/2 TABLET 1 HR BEFORE BEDTIME SILDENAFIL CITRATE 86147930550 Active Essence Benson RMA Active AMOXICILLIN 875 MG TABS 1 tab by mouth twice daily 201 11/15/00 AMOXICILLIN 35664094545 No Longer Active Bill Gonzáles MD Acti ve LANOXIN 0.125 MG TABS 1 tab po qd DIGOXIN 59042203854 Ac tive Bill Gonzáles MD Active VIAGRA 100 MG TABS 1/2 po 1 hr before sexual activity SILDENAFIL CITRATE 58341472757 No Longer Active Francisco J Mata MD Active TUSSIONEX PENNKINETIC ER 10-8 MG/5ML LQCR 5ml po q12hr PRN Cough HYDROCOD POLST-CHLORPHEN POLST 55942307530 No Longer Active Francisco J Mata MD Active ZITHROMAX 250 MG TAB 2 po today, then 1 po q days 2-5 AZITHROMYCIN 73554781263 No Longer Active Francisco J Mata MD A ctive PREDNISONE 20 MG TAB 2 tabs daily for 3 days, 1 t ab daily for 3 days, 1/2 tab daily for 2 days PREDNISONE 36362599557 No Longer Active Kendra Irving APRN Active OMEPRAZOLE 40 MG CPDR 1 qd OMEPRAZOLE 05917 000352 No Longer Active Kendra Irving APRN Active ASPIR-81 81 MG TBEC 1 qd ASPIRIN 36731665070 Matilde e DANNY Tabor Active ATENOLOL 50 MG TABS 1 bid ATENOLOL 45367260231 Acti ve Bill Gonzáles MD Active CLONIDINE HCL 0.1 MG TABS 1 bid CLONIDINE HCL 23895 463554 Active Bill Gonzáles MD Active CVS VITAMIN E 1000 UNIT CAPS 1 qd VITAMIN E 704961 20671 Active DANNY Tabor Active DAILY MULTIPLE VITAMINS TABS 1 qd MULTIPLE V ITAMIN 38387297997 Active DANNY Tabor Active GARLIC OIL 500 MG TABS 1 qd GARLIC 16728927400 Ac tive Mario Alberto Morfin RMMichael Active ZETIA 10 MG TABS 1 qd EZETIMIBE 67123674904 Active Bill Gonzáles MD Active KLOR-CON M20 20 MEQ CR-TABS 1 qd BLAKE Ba CHLORIDE JARRED CR 11193068002 Active Bill Gonzáles MD Active BUMETANIDE 2 MG TABS 1qd BUMETANIDE 11076223945 A ctive Bill Gonzáles MD Active SIMVASTATIN 40 MG TABS 1 qhs SIMVASTATIN 6254392549 6 Active Bill Gonzáles MD Active OMEPRAZOLE 40 MG CPDR 1 qd OMEPRAZOLE 40 MG CPDR 390854 OMEPRAZOLE Inactive ZITHROMAX 250 MG TAB 2 po today, then 1 po q days 2-5 ZITHROMAX 250 MG TAB 9195271 AZITHROMYCIN Inactive TUSSIONEX PENNKINETIC ER 10-8 MG/5ML [...] for 2 days PREDNISONE 20 MG TAB 057515 PREDNISON E Inactive AMOXICILLIN 875 MG TABS 1 tab by mouth twice daily 201 11/15/00 AMOXICILLIN 875 MG TABS 204795 AMOXICILLIN Inactive Vital Signs Date Name Value [...] MICROALBUMIN - Chemistry sodium, serum 142 mmol/L 635-008 5191/02/23 potassium, serum 4.7 mmol/L 3.5-5.2 chloride, serum 102 mmol/L 98-107 carbon dioxide, venous blood 29.7 mmol/L 21.0-32 .0 blood glucose 92 mg/dL 65-110 urea nitrogen, blood 17 mg/dL 7-18 creatinine, serum 1.20 mg/dL 0.60-1.30 alanine aminotransferase (SGPT), serum 38 U/L 12-78 aspartate aminotransferase (SGOT), serum 25 U/L 15-37 calcium, serum 8.9 mg/dL 8.5-10.1 bilirubin, serum, total 0.60 mg/dL 0.00-1.00 cholesterol, serum 107 mg/dL 958-028 2472/02/23 triglyceride, serum, fasting 72 mg/dL 30-200 HDL [...] mg/dL Encounters Code Encounter Date Provider Facility CPT-57840 Level 4 Est. 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 Patient 20:03:37 LEADER ASSEMBLER Bill holden MD [facility] CPT-02400 Level 3 Est. Patient 16:15:23 LEADER ASSEMBLER Bill holden MD [facility] CPT-10092 Level 4 Est. Patient 23:44:36 CDT Bill holden MD [facility] CPT-64532 Level 3 Est. Patient 14:02:53 LEADER ASSEMBLER Kendra rankin APRN [facility] Procedures Code Procedure Name Date Entry Date Standard Desc ription CPT-OV Office Visit 14:28:59 LEADER ASSEMBLER CPT-OV Office Visit 11:28:00 CDT CPT-OV Office Visit 15:01:24 CDT CPT-OV Office Visit 16:55:58 CDT CPT-OV Office Visit 16:05:31 LEADER ASSEMBLER CPT-OV Office Visit 09:47:16 LEADER ASSEMBLER CPT-OV Office Visit 20:31:04 CDT
--- OUTSIDE RECORDS SUMMARY | 2019-10-04 12:02 | XMS REPORT | Clinical Summary ---
Author Author Zoe, Alex Jacobs [facility] Address Unknown Phone Unavailable Allergies, Adverse Reactions, [...] Coronary atherosclerosis of unspecified type of vessel, [place] or graft Sinusitis 461.9 Active Bill Gonzáles MD Acute sinusitis, unspecified Colon cancer screening V76.51 Active Kendra Yoon APRN Screening for malignant neoplasms of colon BRONCHITIS-ACUTE ICD-466.0 Inactive Kendra josé APRN Medication List Medication Instructions Start Date Stop Date Generic Name NDC Status Provider Patient Instruction MELOXICAM 7.5 MG TABS 1 tab by mouth every 12 hours as needed 10/08 MELOXICAM 83955150395 Active Bill Gonzáles MD Active VIAGRA 50 MG TABS 1/2 TABLET 1 HR BEFORE BEDTIME SILDENAFIL CITRATE 01560938752 Active Essence Benson RMA Active AMOXICILLIN 875 MG TABS 1 tab by mouth twice daily 201 11/15/00 AMOXICILLIN 83016943681 No Longer Active Bill Gonzáles MD Acti ve LANOXIN 0.125 MG TABS 1 tab po qd DIGOXIN 81075682828 Ac tive Bill Gonzáles MD Active VIAGRA 100 MG TABS 1/2 po 1 hr before sexual activity SILDENAFIL CITRATE 48342099627 No Longer Active Francisco J Mata MD Active TUSSIONEX PENNKINETIC ER 10-8 MG/5ML LQCR 5ml po q12hr PRN Cough HYDROCOD POLST-CHLORPHEN POLST 98146081681 No Longer Active Francisco J Mata MD Active ZITHROMAX 250 MG TAB 2 po today, then 1 po q days 2-5 AZITHROMYCIN 19230165826 No Longer Active Francisco J Mata MD A ctive PREDNISONE 20 MG TAB 2 tabs daily for 3 days, 1 t ab daily for 3 days, 1/2 tab daily for 2 days PREDNISONE 51008985349 No Longer Active Kendra Irving APRN Active OMEPRAZOLE 40 MG CPDR 1 qd OMEPRAZOLE 67390 417045 No Longer Active Kendra Irving APRN Active ASPIR-81 81 MG TBEC 1 qd ASPIRIN 52664763138 Matilde e DANNY Tabor Active ATENOLOL 50 MG TABS 1 bid ATENOLOL 95446681608 Acti ve Bill Gonzáles MD Active CLONIDINE HCL 0.1 MG TABS 1 bid CLONIDINE HCL 76006 165066 Active Bill Gonzáles MD Active CVS VITAMIN E 1000 UNIT CAPS 1 qd VITAMIN E 816224 84917 Active DANNY Tabor Active DAILY MULTIPLE VITAMINS TABS 1 qd MULTIPLE V ITAMIN 76603183510 Active DANNY Tabor Active GARLIC OIL 500 MG TABS 1 qd GARLIC 26164958574 Ac tive Mario Alberto Morfin RMMichael Active ZETIA 10 MG TABS 1 qd EZETIMIBE 74001001434 Active Bill Gonzáles MD Active KLOR-CON M20 20 MEQ CR-TABS 1 qd BLAKE Ba CHLORIDE JARRED CR 51571405716 Active Bill Gonzáles MD Active BUMETANIDE 2 MG TABS 1qd BUMETANIDE 98083973801 A ctive Bill Gonzáles MD Active SIMVASTATIN 40 MG TABS 1 qhs SIMVASTATIN 5449224187 6 Active Bill Gonzáles MD Active OMEPRAZOLE 40 MG CPDR 1 qd OMEPRAZOLE 40 MG CPDR 935229 OMEPRAZOLE Inactive ZITHROMAX 250 MG TAB 2 po today, then 1 po q days 2-5 ZITHROMAX 250 MG TAB 5250956 AZITHROMYCIN Inactive TUSSIONEX PENNKINETIC ER 10-8 MG/5ML [...] for 2 days PREDNISONE 20 MG TAB 747099 PREDNISON E Inactive AMOXICILLIN 875 MG TABS 1 tab by mouth twice daily 201 11/15/00 AMOXICILLIN 875 MG TABS 988672 AMOXICILLIN Inactive Vital Signs Date Name Value [...] MICROALBUMIN - Chemistry sodium, serum 142 mmol/L 653-291 9012/02/23 potassium, serum 4.7 mmol/L 3.5-5.2 chloride, serum 102 mmol/L 98-107 carbon dioxide, venous blood 29.7 mmol/L 21.0-32 .0 blood glucose 92 mg/dL 65-110 urea nitrogen, blood 17 mg/dL 7-18 creatinine, serum 1.20 mg/dL 0.60-1.30 alanine aminotransferase (SGPT), serum 38 U/L 12-78 aspartate aminotransferase (SGOT), serum 25 U/L 15-37 calcium, serum 8.9 mg/dL 8.5-10.1 bilirubin, serum, total 0.60 mg/dL 0.00-1.00 cholesterol, serum 107 mg/dL 704-481 5546/02/23 triglyceride, serum, fasting 72 mg/dL 30-200 HDL [...] mg/dL Encounters Code Encounter Date Provider Facility CPT-85485 Level 4 Est. 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 Patient 20:03:37 RUG RENOVATOR Bill holden MD [facility] CPT-54673 Level 3 Est. Patient 16:15:23 RUG RENOVATOR Bill holden MD [facility] CPT-07073 Level 4 Est. Patient 23:44:36 CDT Bill holden MD [facility] CPT-15361 Level 3 Est. Patient 14:02:53 RUG RENOVATOR Kendra rankin APRN [facility] Procedures Code Procedure Name Date Entry Date Standard Desc ription CPT-OV Office Visit 14:28:59 RUG RENOVATOR CPT-OV Office Visit 11:28:00 CDT CPT-OV Office Visit 15:01:24 CDT CPT-OV Office Visit 16:55:58 CDT CPT-OV Office Visit 16:05:31 RUG RENOVATOR CPT-OV Office Visit 09:47:16 RUG RENOVATOR CPT-OV Office Visit 20:31:04 CDT
--- OUTSIDE RECORDS SUMMARY | 2019-10-04 12:02 | XMS REPORT | Clinical Summary ---
Author Author Zoe, Alex Jacobs [facility] Address Unknown Phone Unavailable Allergies, Adverse [...] Coronary atherosclerosis of unspecified type of vessel, [place] or graft Sinusitis 461.9 Active Bill Gonzáles MD Acute sinusitis, unspecified Colon cancer screening V76.51 Active Kendra Yoon APRN Screening for malignant neoplasms of colon BRONCHITIS-ACUTE ICD-466.0 Inactive Kendra josé APRN Medication List Medication Instructions Start Date Stop Date Generic Name NDC Status Provider Patient Instruction MELOXICAM 7.5 MG TABS 1 tab by mouth every 12 hours as needed 10/08 MELOXICAM 89788893137 Active Bill Gonzáles MD Active VIAGRA 50 MG TABS 1/2 TABLET 1 HR BEFORE BEDTIME SILDENAFIL CITRATE 58293355578 Active Essence Benson RMA Active AMOXICILLIN 875 MG TABS 1 tab by mouth twice daily 201 11/15/00 AMOXICILLIN 76389323766 No Longer Active Bill Gonzáles MD Acti ve LANOXIN 0.125 MG TABS 1 tab po qd DIGOXIN 79024730152 Ac tive Bill Gonzáles MD Active VIAGRA 100 MG TABS 1/2 po 1 hr before sexual activity SILDENAFIL CITRATE 64618094191 No Longer Active Francisco J Mata MD Active TUSSIONEX PENNKINETIC ER 10-8 MG/5ML LQCR 5ml po q12hr PRN Cough HYDROCOD POLST-CHLORPHEN POLST 59272340422 No Longer Active Francisco J Mata MD Active ZITHROMAX 250 MG TAB 2 po today, then 1 po q days 2-5 AZITHROMYCIN 42522138101 No Longer Active Francisco J Mata MD A ctive PREDNISONE 20 MG TAB 2 tabs daily for 3 days, 1 t ab daily for 3 days, 1/2 tab daily for 2 days PREDNISONE 68901320713 No Longer Active Kendra Irving APRN Active OMEPRAZOLE 40 MG CPDR 1 qd OMEPRAZOLE 90486 144871 No Longer Active Kendra Irving APRN Active ASPIR-81 81 MG TBEC 1 qd ASPIRIN 62350330659 Matilde e DANNY Tabor Active ATENOLOL 50 MG TABS 1 bid ATENOLOL 36499889551 Acti ve Bill Gonzáles MD Active CLONIDINE HCL 0.1 MG TABS 1 bid CLONIDINE HCL 65864 606121 Active Bill Gonzáles MD Active CVS VITAMIN E 1000 UNIT CAPS 1 qd VITAMIN E 870392 28402 Active DANNY Tabor Active DAILY MULTIPLE VITAMINS TABS 1 qd MULTIPLE V ITAMIN 26037301196 Active DANNY Tabor Active GARLIC OIL 500 MG TABS 1 qd GARLIC 00188141729 Ac tive Mario Alberto Morfin RMMichael Active ZETIA 10 MG TABS 1 qd EZETIMIBE 74068610830 Active Bill Gonzáles MD Active KLOR-CON M20 20 MEQ CR-TABS 1 qd BLAKE Ba CHLORIDE JARRED CR 68556805330 Active Bill Gonzáles MD Active BUMETANIDE 2 MG TABS 1qd BUMETANIDE 40082156160 A ctive Bill Gonzáles MD Active SIMVASTATIN 40 MG TABS 1 qhs SIMVASTATIN 2437953754 6 Active Bill Gonzáles MD Active OMEPRAZOLE 40 MG CPDR 1 qd OMEPRAZOLE 40 MG CPDR 591526 OMEPRAZOLE Inactive ZITHROMAX 250 MG TAB 2 po today, then 1 po q days 2-5 ZITHROMAX 250 MG TAB 6736570 AZITHROMYCIN Inactive TUSSIONEX PENNKINETIC ER 10-8 MG/5ML [...] for 2 days PREDNISONE 20 MG TAB 172915 PREDNISON E Inactive AMOXICILLIN 875 MG TABS 1 tab by mouth twice daily 201 11/15/00 AMOXICILLIN 875 MG TABS 828697 AMOXICILLIN Inactive Vital Signs Date Name Value [...] MICROALBUMIN - Chemistry sodium, serum 142 mmol/L 761-814 7337/02/23 potassium, serum 4.7 mmol/L 3.5-5.2 chloride, serum 102 mmol/L 98-107 carbon dioxide, venous blood 29.7 mmol/L 21.0-32 .0 blood glucose 92 mg/dL 65-110 urea nitrogen, blood 17 mg/dL 7-18 creatinine, serum 1.20 mg/dL 0.60-1.30 alanine aminotransferase (SGPT), serum 38 U/L 12-78 aspartate aminotransferase (SGOT), serum 25 U/L 15-37 calcium, serum 8.9 mg/dL 8.5-10.1 bilirubin, serum, total 0.60 mg/dL 0.00-1.00 cholesterol, serum 107 mg/dL 882-579 5850/02/23 triglyceride, serum, fasting 72 mg/dL 30-200 HDL [...] mg/dL Encounters Code Encounter Date Provider Facility CPT-68479 Level 4 Est. Patient 10:12:54 HANDKERCHIEF SAMPLE CLERK Bill holden MD [facility] CPT-60577 Level 4 Est. Patient 20:03:37 HANDKERCHIEF SAMPLE CLERK Bill holden MD [facility] CPT-13709 Level 3 Est. Patient 16:15:23 HANDKERCHIEF SAMPLE CLERK Bill holden MD [facility] CPT-55639 Level 4 Est. Patient 23:44:36 CDT Bill holden MD [facility] CPT-04459 Level 3 Est. Patient 14:02:53 HANDKERCHIEF SAMPLE CLERK Kendra rankin APRN [facility] Procedures Code Procedure Name Date Entry Date Standard Desc ription CPT-OV Office Visit 14:28:59 HANDKERCHIEF SAMPLE CLERK CPT-OV Office Visit 11:28:00 CDT CPT-OV Office Visit 15:01:24 CDT CPT-OV Office Visit 16:55:58 CDT CPT-OV Office Visit 16:05:31 HANDKERCHIEF SAMPLE CLERK CPT-OV Office Visit 09:47:16 HANDKERCHIEF SAMPLE CLERK CPT-OV Office Visit 20:31:04 CDT
--- OUTSIDE RECORDS SUMMARY | 2019-10-04 12:02 | XMS REPORT | Clinical Summary ---
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 Inactive Francisco J Mata MD 20 31/07/14 BRONCHITIS-ACUTE ICD-466.0 Inactive Kendra Rausch es LABORATORY CLERK F/U EXAM FOLLOW CMPL TX W/HIGH-RISK MED NEC ICD-V67.51 Inactive Francisco J Mata MD Sinusitis ICD-461.9 Inactive Francisco J juarez MD Colon cancer screening ICD-V76.51 Inactive Juan Mata MD Medication List Medication Instructions Start Date Stop Date Generic Name NDC Status Provider Patient Instruction ZOFRAN ODT 4 MG ORAL TBDP 1 every 8 hrs prn OND ANSETRON 26208920642 Active Francisco J Mata MD Active CVS VITAMIN E 1000 UNIT CAPS 1 qd VITAMIN E 54658015905 No Longer Active Francisco J Mata MD Active KLOR-CON M20 20 MEQ CR-TABS 1 qd POTASSIUM CHLORIDE JARRED CR 02633412852 No Longer Active Francisco J Mata MD A ctive VIAGRA 50 MG TABS 1/2 TABLET 1 HR BEFORE BEDTIME 07/29 SILDENAFIL CITRATE 37425191166 No Longer Active Francisco J Mata MD Active MELOXICAM 7.5 MG TABS 1 tab by mouth every 12 hours as needed 20 30/09/22 MELOXICAM 28684178139 No Longer Active Francisco J Mata MD Active AMOXICILLIN 875 MG TABS 1 tab by mouth twice daily 201 11/15/00 AMOXICILLIN 29219700311 No Longer Active Bill Gonzáles MD Acti ve LANOXIN 0.125 MG TABS 1 tab po qd DIGOXIN 05051427361 Ac tive Bill Gonzáles MD Active VIAGRA 100 MG TABS 1/2 po 1 hr before sexual activity SILDENAFIL CITRATE 68842690167 No Longer Active Francisco J Mata MD Active TUSSIONEX PENNKINETIC ER 10-8 MG/5ML LQCR 5ml po q12hr PRN Cough HYDROCOD POLST-CHLORPHEN POLST 38931000334 No Longer Active Francisco J Mata MD Active ZITHROMAX 250 MG TAB 2 po today, then 1 po q days 2-5 AZITHROMYCIN 92128815542 No Longer Active Francisco J Mata MD A ctive PREDNISONE 20 MG TAB 2 tabs daily for 3 days, 1 t ab daily for 3 days, 1/2 tab daily for 2 days PREDNISONE 60985270653 No Longer Active Kendra Irving APRN Active OMEPRAZOLE 40 MG CPDR 1 qd OMEPRAZOLE 67057 098246 No Longer Active Kendra Irving APRN Active ASPIR-81 81 MG TBEC 1 qd ASPIRIN 37291950472 Activ e Mario Alberto Morfin RMA Active ATENOLOL 50 MG TABS 1 bid ATENOLOL 80040676406 Active Svetlana Clayton Active CLONIDINE HCL 0.1 MG TABS 1 bid CLONIDINE HCL 20064 403969 Active Bill Gonzáles MD Active DAILY MULTIPLE VITAMINS TABS 1 qd MULTIPLE V ITAMIN 91055895697 Active DANNY Tabor Active GARLIC OIL 500 MG TABS 1 qd GARLIC 09948673675 Ac tive Mario Alberto Morfin RMA Active ZETIA 10 MG TABS 1 qd EZETIMIBE 06543603715 Active Nemo Morgan APRN Active BUMETANIDE 2 MG TABS 1qd BUMETANIDE 22402452183 A ctive Nemo Morgan APRN Active SIMVASTATIN 40 MG TABS 1 qhs SIMVASTATIN 8923911982 6 Active Bill Gonzáles MD Active OMEPRAZOLE 40 MG CPDR 1 qd OMEPRAZOLE 40 MG CPDR 755768 OMEPRAZOLE Inactive ZITHROMAX 250 MG TAB 2 po today, then 1 po q days 2-5 ZITHROMAX 250 MG TAB 8420818 AZITHROMYCIN Inactive TUSSIONEX PENNKINETIC ER 10-8 MG/5ML LQCR 5ml po q12hr PRN Cough TUSSIONEX PENNKINETIC ER 10-8 MG/5ML LQCR HYDROCOD POLST-CHLORPHEN POLST Inactive VIAGRA 100 MG TABS 1/2 po 1 hr before sexual activity VIAGRA 100 MG TABS SILDENAFIL CITRATE Inactive MELOXICAM 7.5 MG TABS 1 tab by mouth every 12 hours as needed 20 30/09/22 MELOXICAM 7.5 MG TABS 008780 MELOXICAM Inactive VIAGRA 50 MG TABS 1/2 TABLET 1 HR BEFORE BEDTIME 07/29 VIAGRA 50 MG TABS SILDENAFIL CITRATE Inactive KLOR-CON M20 20 MEQ CR-TABS 1 qd KLOR-CON M20 20 MEQ CR-TABS POTASSIUM CHLORIDE JARRED CR Inactive CVS VITAMIN E 1000 UNIT CAPS 1 qd CVS VITAMIN E 1000 UNIT CAPS 080555 VITAMIN E Inactive PREDNISONE 20 MG TAB 2 tabs daily for 3 days, 1 t ab daily for 3 days, 1/2 tab daily for 2 days PREDNISONE 20 MG TAB 542203 PREDNISON E Inactive AMOXICILLIN 875 MG TABS 1 tab by mouth twice daily 201 11/15/00 AMOXICILLIN 875 MG TABS 763842 AMOXICILLIN Inactive Diagnostic Results Date Name Value Unit Range Description Lab Report: CBC, Comp. Metabolic Panel - Chemistry sodium, serum 143 mmol/L 248-854 0032/12/14 carbon dioxide, venous blood 31.5 mmol/L 21.0-32 [...] 142-424 Encounters Code Encounter Date Provider Facility CPT-34440 Level 4 New Patient 15:31:29 MACHINE BASTER Francisco J Mata MD [facility] CPT-43223 Level 4 Est. Patient 10:12:54 MACHINE BASTER Bill holden MD [facility] CPT-60033 Level 4 Est. Patient 20:03:37 MACHINE BASTER Bill holden MD [facility] CPT-64327 Level 3 Est. Patient 16:15:23 MACHINE BASTER Bill holden MD [facility] CPT-99888 Level 4 Est. Patient 23:44:36 CDT Bill holden MD [facility] CPT-58738 Level 3 Est. Patient 14:02:53 MACHINE BASTER Kendra rankin APRN [facility] Procedures Code Procedure Name Date Entry Date Standard Desc ription CPT-69339 [employer] all organs plus proximal aorta and distal IVC - XRAY USE ONLY 11:53:25 MACHINE BASTER CPT-03559 CMP - LAB USE ONLY 17:29:21 MACHINE BASTER CPT-39398 CBC - LAB USE ONLY 17:29:21 [facility] CPT-84685 Venipuncture Draw Fee 17:29:21 MACHINE BASTER CPT-OV Office Visit 14:28:59 MACHINE BASTER CPT-OV Office Visit 11:28:00 CDT CPT-OV Office Visit 15:01:24 CDT CPT-OV Office Visit 16:55:58 CDT CPT-OV Office Visit 16:05:31 MACHINE BASTER CPT-OV Office Visit 09:47:16 MACHINE BASTER CPT-OV Office Visit 20:31:04 CDT
--- OUTSIDE RECORDS SUMMARY | 2019-10-04 12:02 | XMS REPORT | Clinical Summary ---
Author Author Zoe, Alex Jacobs [facility] Address Unknown Phone Unavailable Allergies, Adverse [...] Coronary atherosclerosis of unspecified type of vessel, [place] or graft Sinusitis 461.9 Active Bill Gonzáles MD Acute sinusitis, unspecified Colon cancer screening V76.51 Active Kendra Yoon APRN Screening for malignant neoplasms of colon BRONCHITIS-ACUTE ICD-466.0 Inactive Kendra josé APRN Medication List Medication Instructions Start Date Stop Date Generic Name NDC Status Provider Patient Instruction MELOXICAM 7.5 MG TABS 1 tab by mouth every 12 hours as needed 10/08 MELOXICAM 63676919159 Active Bill Gonzáles MD Active VIAGRA 50 MG TABS 1/2 TABLET 1 HR BEFORE BEDTIME SILDENAFIL CITRATE 83178180386 Active Essence Benson RMA Active AMOXICILLIN 875 MG TABS 1 tab by mouth twice daily 201 11/15/00 AMOXICILLIN 27613389204 No Longer Active Bill Gonzáles MD Acti ve LANOXIN 0.125 MG TABS 1 tab po qd DIGOXIN 87037643175 Ac tive Bill Gonzáles MD Active VIAGRA 100 MG TABS 1/2 po 1 hr before sexual activity SILDENAFIL CITRATE 48534988857 No Longer Active Francisco J Mata MD Active TUSSIONEX PENNKINETIC ER 10-8 MG/5ML LQCR 5ml po q12hr PRN Cough HYDROCOD POLST-CHLORPHEN POLST 22776472666 No Longer Active Francisco J Mata MD Active ZITHROMAX 250 MG TAB 2 po today, then 1 po q days 2-5 AZITHROMYCIN 77573141108 No Longer Active Francisco J Mata MD A ctive PREDNISONE 20 MG TAB 2 tabs daily for 3 days, 1 t ab daily for 3 days, 1/2 tab daily for 2 days PREDNISONE 11770441381 No Longer Active Kendra Irving APRN Active OMEPRAZOLE 40 MG CPDR 1 qd OMEPRAZOLE 15629 384510 No Longer Active Knedra Irving APRN Active ASPIR-81 81 MG TBEC 1 qd ASPIRIN 58132178128 Matilde e DANNY Tabor Active ATENOLOL 50 MG TABS 1 bid ATENOLOL 64987327450 Acti ve Bill Gonzáles MD Active CLONIDINE HCL 0.1 MG TABS 1 bid CLONIDINE HCL 14402 879764 Active Bill Gonzáles MD Active CVS VITAMIN E 1000 UNIT CAPS 1 qd VITAMIN E 313082 07247 Active DANNY Tabor Active DAILY MULTIPLE VITAMINS TABS 1 qd MULTIPLE V ITAMIN 77547828327 Active DANNY Tbaor Active GARLIC OIL 500 MG TABS 1 qd GARLIC 75125860253 Ac tive Mario Alberto Morfin RMMichael Active ZETIA 10 MG TABS 1 qd EZETIMIBE 84939585277 Active Bill Gonzáles MD Active KLOR-CON M20 20 MEQ CR-TABS 1 qd BLAKE Ba CHLORIDE JARRED CR 08094498565 Active Bill Gonzáles MD Active BUMETANIDE 2 MG TABS 1qd BUMETANIDE 75701596012 A ctive Bill Gonzáles MD Active SIMVASTATIN 40 MG TABS 1 qhs SIMVASTATIN 3579930227 6 Active Bill Gonzáles MD Active OMEPRAZOLE 40 MG CPDR 1 qd OMEPRAZOLE 40 MG CPDR 742688 OMEPRAZOLE Inactive ZITHROMAX 250 MG TAB 2 po today, then 1 po q days 2-5 ZITHROMAX 250 MG TAB 5849981 AZITHROMYCIN Inactive TUSSIONEX PENNKINETIC ER 10-8 MG/5ML [...] for 2 days PREDNISONE 20 MG TAB 999019 PREDNISON E Inactive AMOXICILLIN 875 MG TABS 1 tab by mouth twice daily 201 11/15/00 AMOXICILLIN 875 MG TABS 417941 AMOXICILLIN Inactive Vital Signs Date Name Value [...] MICROALBUMIN - Chemistry sodium, serum 142 mmol/L 396-967 4324/02/23 potassium, serum 4.7 mmol/L 3.5-5.2 chloride, serum 102 mmol/L 98-107 carbon dioxide, venous blood 29.7 mmol/L 21.0-32 .0 blood glucose 92 mg/dL 65-110 urea nitrogen, blood 17 mg/dL 7-18 creatinine, serum 1.20 mg/dL 0.60-1.30 alanine aminotransferase (SGPT), serum 38 U/L 12-78 aspartate aminotransferase (SGOT), serum 25 U/L 15-37 calcium, serum 8.9 mg/dL 8.5-10.1 bilirubin, serum, total 0.60 mg/dL 0.00-1.00 cholesterol, serum 107 mg/dL 797-083 2775/02/23 triglyceride, serum, fasting 72 mg/dL 30-200 HDL [...] mg/dL Encounters Code Encounter Date Provider Facility CPT-59137 Level 4 Est. Patient 10:12:54 EXAMINER RATING CLERK Bill holden MD [facility] CPT-51821 Level 4 Est. Patient 20:03:37 EXAMINER RATING CLERK Bill holden MD [facility] CPT-61102 Level 3 Est. Patient 16:15:23 EXAMINER RATING CLERK Bill holden MD [facility] CPT-29898 Level 4 Est. Patient 23:44:36 CDT Bill holden MD [facility] CPT-91478 Level 3 Est. Patient 14:02:53 EXAMINER RATING CLERK Kendra rankin APRN [facility] Procedures Code Procedure Name Date Entry Date Standard Desc ription CPT-OV Office Visit 14:28:59 EXAMINER RATING CLERK CPT-OV Office Visit 11:28:00 CDT CPT-OV Office Visit 15:01:24 CDT CPT-OV Office Visit 16:55:58 CDT CPT-OV Office Visit 16:05:31 EXAMINER RATING CLERK CPT-OV Office Visit 09:47:16 EXAMINER RATING CLERK CPT-OV Office Visit 20:31:04 CDT
--- OUTSIDE RECORDS SUMMARY | 2019-10-04 12:02 | XMS REPORT | Clinical Summary ---
[...] ophageal reflux BRONCHITIS-ACUTE 466.0 Inactive Kendra CONTRERAS program director air talent bronchitis F/U EXAM FOLLOW CMPL TX W/HIGH-RISK MED NEC V67.51 Act brad Kendra Irving APRN Follow-up examination follow ing treatment with high-risk medication, not elsewhere classified CAD 414.00 Active Bill Gonzáles MD Coronary atherosclerosis of unspecified type of vessel, [place] or graft Sinusitis 461.9 Active Bill Gonzáles MD Acute sinusitis, unspecified Colon cancer screening V76.51 Active Kendra Yoon APRN Screening for malignant neoplasms of colon BRONCHITIS-ACUTE ICD-466.0 Inactive Kendra josé APRN Medication List Medication Instructions Start Date Stop Date Generic Name NDC Status Provider Patient Instruction MELOXICAM 7.5 MG TABS 1 tab by mouth every 12 hours as needed 10/08 MELOXICAM 97840040738 Active Bill Gonzáles MD Active VIAGRA 50 MG TABS 1/2 TABLET 1 HR BEFORE BEDTIME SILDENAFIL CITRATE 08475022094 Active Essence Benson RMA Active AMOXICILLIN 875 MG TABS 1 tab by mouth twice daily 201 11/15/00 AMOXICILLIN 53974324372 No Longer Active Bill Gonzáles MD Acti ve LANOXIN 0.125 MG TABS 1 tab po qd DIGOXIN 03178214519 Ac tive Bill Gonzáles MD Active VIAGRA 100 MG TABS 1/2 po 1 hr before sexual activity SILDENAFIL CITRATE 67484223030 No Longer Active Francisco J Mata MD Active TUSSIONEX PENNKINETIC ER 10-8 MG/5ML LQCR 5ml po q12hr PRN Cough HYDROCOD POLST-CHLORPHEN POLST 39850322500 No Longer Active Francisco J Mata MD Active ZITHROMAX 250 MG TAB 2 po today, then 1 po q days 2-5 AZITHROMYCIN 21340934041 No Longer Active Francisco J Mata MD A ctive PREDNISONE 20 MG TAB 2 tabs daily for 3 days, 1 t ab daily for 3 days, 1/2 tab daily for 2 days PREDNISONE 55625244191 No Longer Active Kendra Irving APRN Active OMEPRAZOLE 40 MG CPDR 1 qd OMEPRAZOLE 00113 404985 No Longer Active Kendra Irving APRN Active ASPIR-81 81 MG TBEC 1 qd ASPIRIN 63964390810 DANNY [place] Active ATENOLOL 50 MG TABS 1 bid ATENOLOL 74510751971 Active Svetlana Clayton Active CLONIDINE HCL 0.1 MG TABS 1 bid CLONIDINE HCL 21249 273242 Active Bill Gonzáles MD Active CVS VITAMIN E 1000 UNIT CAPS 1 qd VITAMIN E 930987 52791 Active DANNY Tabor Active DAILY MULTIPLE VITAMINS TABS 1 qd MULTIPLE V ITAMIN 51791060174 Active DANNY Tabor Active GARLIC OIL 500 MG TABS 1 qd GARLIC 79521442781 Ac tive Mario Alberto Morfin RMMichael Active ZETIA 10 MG TABS 1 qd EZETIMIBE 92974114911 Active Nemo Eddie [place] APPLIER Active KLOR-CON M20 20 MEQ CR-TABS 1 qd BLAKE M CHLORIDE JARRED CR 30841256136 Active Bill Gonzáles MD Active BUMETANIDE 2 MG TABS 1qd BUMETANIDE 51909684972 A ctive Nemolarry Morgan APRN Active SIMVASTATIN 40 MG TABS 1 qhs SIMVASTATIN 0251388255 6 Active Bill Gonzáles MD Active OMEPRAZOLE 40 MG CPDR 1 qd OMEPRAZOLE 40 MG CPDR 456805 OMEPRAZOLE Inactive ZITHROMAX 250 MG TAB 2 po today, then 1 po q days 2-5 ZITHROMAX 250 MG TAB 4991979 AZITHROMYCIN Inactive TUSSIONEX PENNKINETIC ER 10-8 MG/5ML [...] for 2 days PREDNISONE 20 MG TAB 595446 PREDNISON E Inactive AMOXICILLIN 875 MG TABS 1 tab by mouth twice daily 201 11/15/00 AMOXICILLIN 875 MG TABS 906806 AMOXICILLIN Inactive Encounters Code Encounter Date Provider Facility CPT-57172 Level 4 Est. Patient 10:12:54 DIRECTOR DECISION SUPPORT Bill holden MD [facility] CPT-86384 Level 4 Est. Patient 20:03:37 DIRECTOR DECISION SUPPORT Bill holden MD [facility] CPT-36150 Level 3 Est. Patient 16:15:23 DIRECTOR DECISION SUPPORT Bill holden MD [facility] CPT-07258 Level 4 Est. Patient 23:44:36 CDT Bill holden MD [facility] CPT-36532 Level 3 Est. Patient 14:02:53 DIRECTOR DECISION SUPPORT Kendra rankin APRN [facility] Procedures Code Procedure Name Date Entry Date Standard Desc ription CPT-OV Office Visit 14:28:59 DIRECTOR DECISION SUPPORT CPT-OV Office Visit 11:28:00 CDT CPT-OV Office Visit 15:01:24 CDT CPT-OV Office Visit 16:55:58 CDT CPT-OV Office Visit 16:05:31 DIRECTOR DECISION SUPPORT CPT-OV Office Visit 09:47:16 DIRECTOR DECISION SUPPORT CPT-OV Office Visit 20:31:04 CDT
--- OUTSIDE RECORDS SUMMARY | 2019-10-04 12:03 | XMS REPORT | Clinical Summary ---
Author Author Zoe, Alex Jacobs [facility] Address Unknown Phone Unavailable Allergies, Adverse [...] ophageal reflux BRONCHITIS-ACUTE 466.0 Inactive Kendra CONTRERAS senior datastage developer bronchitis F/U EXAM FOLLOW CMPL TX W/HIGH-RISK MED NEC V67.51 Act brad Kendra Irving APRN Follow-up examination follow ing treatment with high-risk medication, not elsewhere classified CAD 414.00 Active Bill Gonzáles MD Coronary atherosclerosis of unspecified type of vessel, [place] or graft Sinusitis 461.9 Active Bill Gonzáles MD Acute sinusitis, unspecified Colon cancer screening V76.51 Active Kendra Yoon APRN Screening for malignant neoplasms of colon BRONCHITIS-ACUTE ICD-466.0 Inactive Kendra josé APRN Medication List Medication Instructions Start Date Stop Date Generic Name NDC Status Provider Patient Instruction MELOXICAM 7.5 MG TABS 1 tab by mouth every 12 hours as needed 10/08 MELOXICAM 83269731845 Active Bill Gonzáles MD Active VIAGRA 50 MG TABS 1/2 TABLET 1 HR BEFORE BEDTIME SILDENAFIL CITRATE 81876591816 Active Essence Benson RMA Active AMOXICILLIN 875 MG TABS 1 tab by mouth twice daily 201 11/15/00 AMOXICILLIN 99532817116 No Longer Active Bill Gonzáles MD Acti ve LANOXIN 0.125 MG TABS 1 tab po qd DIGOXIN 90676297294 Ac tive Bill Gonzáles MD Active VIAGRA 100 MG TABS 1/2 po 1 hr before sexual activity SILDENAFIL CITRATE 94097030167 No Longer Active Francisco J Mata MD Active TUSSIONEX PENNKINETIC ER 10-8 MG/5ML LQCR 5ml po q12hr PRN Cough HYDROCOD POLST-CHLORPHEN POLST 36401229940 No Longer Active Francisco J Mata MD Active ZITHROMAX 250 MG TAB 2 po today, then 1 po q days 2-5 AZITHROMYCIN 89024346155 No Longer Active Francisco J Mata MD A ctive PREDNISONE 20 MG TAB 2 tabs daily for 3 days, 1 t ab daily for 3 days, 1/2 tab daily for 2 days PREDNISONE 84092873885 No Longer Active Kendra Irving APRN Active OMEPRAZOLE 40 MG CPDR 1 qd OMEPRAZOLE 78349 645745 No Longer Active Kendra Irving APRN Active ASPIR-81 81 MG TBEC 1 qd ASPIRIN 63009218923 DANNY [place] Active ATENOLOL 50 MG TABS 1 bid ATENOLOL 58678293624 Active Svetlana Clayton Active CLONIDINE HCL 0.1 MG TABS 1 bid CLONIDINE HCL 08572 753592 Active Bill Gonzáles MD Active [facility]S VITAMIN E 1000 UNIT CAPS 1 qd VITAMIN E 020947 16313 Active DANNY Tabor Active DAILY MULTIPLE VITAMINS TABS 1 qd MULTIPLE V ITAMIN 47269658951 Active DANNY Tabor Active GARLIC OIL 500 MG TABS 1 qd GARLIC 96281556048 Ac tive Mario Alberto Morfin RMMichael Active ZETIA 10 MG TABS 1 qd EZETIMIBE 20834435539 Active Bill Gonzáles MD Active KLOR-CON M20 20 MEQ CR-TABS 1 qd BLAKE M CHLORIDE JARRED CR 51822302150 Active Bill Gonzáles MD Active BUMETANIDE 2 MG TABS 1qd BUMETANIDE 97558530773 A ctive Bill Gonzáles MD Active SIMVASTATIN 40 MG TABS 1 qhs SIMVASTATIN 4016041032 6 Active Bill Gonzáles MD Active OMEPRAZOLE 40 MG CPDR 1 qd OMEPRAZOLE 40 MG CPDR 193834 OMEPRAZOLE Inactive ZITHROMAX 250 MG TAB 2 po today, then 1 po q days 2-5 ZITHROMAX 250 MG TAB 7337630 AZITHROMYCIN Inactive TUSSIONEX PENNKINETIC ER 10-8 MG/5ML [...] for 2 days PREDNISONE 20 MG TAB 860533 PREDNISON E Inactive AMOXICILLIN 875 MG TABS 1 tab by mouth twice daily 201 11/15/00 AMOXICILLIN 875 MG TABS 258096 AMOXICILLIN Inactive Encounters Code Encounter Date Provider Facility CPT-02805 Level 4 Est. Patient 10:12:54 TELEGRAPH REPEATER TECHNICIAN Bill holden MD [facility] CPT-96529 Level 4 Est. Patient 20:03:37 TELEGRAPH REPEATER TECHNICIAN Bill holden MD [facility] CPT-56773 Level 3 Est. Patient 16:15:23 TELEGRAPH REPEATER TECHNICIAN Bill holden MD [facility] CPT-67368 Level 4 Est. Patient 23:44:36 CDT Bill holden MD [facility] CPT-01134 Level 3 Est. Patient 14:02:53 TELEGRAPH REPEATER TECHNICIAN Kendra rankin APRN [facility] Procedures Code Procedure Name Date Entry Date Standard Desc ription CPT-OV Office Visit 14:28:59 TELEGRAPH REPEATER TECHNICIAN CPT-OV Office Visit 11:28:00 CDT CPT-OV Office Visit 15:01:24 CDT CPT-OV Office Visit 16:55:58 CDT CPT-OV Office Visit 16:05:31 TELEGRAPH REPEATER TECHNICIAN CPT-OV Office Visit 09:47:16 TELEGRAPH REPEATER TECHNICIAN CPT-OV Office Visit 20:31:04 CDT
--- OUTSIDE RECORDS SUMMARY | 2019-10-04 12:03 | XMS REPORT | Clinical Summary ---
Author Author Zoe, Alex Jacobs [facility] Address Unknown Phone Allergies, Adverse Reactions, Alerts Allergy Name Reaction Description Start Date Severity Status Pr ovider No Known Allergies Javier Chaudhry Conditions or Problems Problem Name Problem Code Onset Date Status Entry Date Provider Comment Standard Description Annotate HYPERTENSION 401.9 Active Mario Alberto Morfin U nspecified essential hypertension HYPERLIPIDEMIA 272.4 Active Mario Alberto Morfin Other and unspecified hyperlipidemia FH DIABETES V18.0 Active Mario Alberto Mann jeannette history of diabetes mellitus PERSONAL HISTORY MALIGNANT NEOPLASM ESOPHAGUS V10.03 Active Francisco J Mata MD Personal history of malignant neoplasm of esophagus G E R D 530.81 Active Kendra Irving APRN Es ophageal reflux BRONCHITIS-ACUTE 466.0 Inactive Kendra CONTRERAS pathology transcriptionist bronchitis F/U EXAM FOLLOW CMPL TX W/HIGH-RISK MED NEC V67.51 Act brad Kendra Irving APRN Follow-up examination follow ing treatment with high-risk medication, not elsewhere classified CAD 414.00 Active Bill Gonzáles MD Coronary atherosclerosis of unspecified type of vessel, [place] or graft Sinusitis 461.9 Active Bill Gonzáles MD Acute sinusitis, unspecified BRONCHITIS-ACUTE ICD-466.0 Inactive eKndra josé APRN Medication List Medication Instructions Start Date Stop Date Generic Name NDC Status Provider Patient Instruction AMOXICILLIN 875 MG TABS 1 tab by mouth twice daily 201 11/15/00 AMOXICILLIN 69352504335 No Longer Active Bill Gonzáles MD Acti ve LANOXIN 0.125 MG TABS 1 tab po qd DIGOXIN 61897684841 Ac tive Bill Gonzáles MD Active VIAGRA 100 MG TABS 1/2 po 1 hr before sexual activity SILDENAFIL CITRATE 85431124704 No Longer Active Francisco J Mata MD Active TUSSIONEX PENNKINETIC ER 10-8 MG/5ML LQCR 5ml po q12hr PRN Cough HYDROCOD POLST-CHLORPHEN POLST 98835246763 No Longer Active Francisco J Mata MD Active ZITHROMAX 250 MG TAB 2 po today, then 1 po q days 2-5 AZITHROMYCIN 62564826368 No Longer Active Francisco J Mata MD A ctive PREDNISONE 20 MG TAB 2 tabs daily for 3 days, 1 t ab daily for 3 days, 1/2 tab daily for 2 days PREDNISONE 47743219190 No Longer Active Kendra Irving APRN Active OMEPRAZOLE 40 MG CPDR 1 qd OMEPRAZOLE 72101 561633 No Longer Active Kendra Irving APRN Active ASPIR-81 81 MG TBEC 1 qd ASPIRIN 44671733528 Activ e Mario Alberto Morfin Active ATENOLOL 50 MG TABS 1 bid ATENOLOL 94302406927 Acti ve Bill Gonzáles MD Active CLONIDINE HCL 0.1 MG TABS 1 bid CLONIDINE HCL 33389 697842 Active Wilfredo Wood Active [facility]S VITAMIN E 1000 UNIT CAPS 1 qd VITAMIN E 656226 65840 Active [place]range [place] Active DAILY MULTIPLE VITAMINS TABS 1 qd MULTIPLE V ITAMIN 95048256714 Active Mario Alberto [place] Active GARLIC OIL 500 MG TABS 1 qd GARLIC 19718355957 Ac tive Mario Alberto Morfin Active ZETIA 10 MG TABS 1 qd EZETIMIBE 70755992142 Active Bill Gonzáles MD Active KLOR-CON M20 20 MEQ CR-TABS 1 qd BLAKE Ba CHLORIDE JARRED CR 76906164520 Active Bill Gonzáles MD Active BUMETANIDE 2 MG TABS 1qd BUMETANIDE 63709043670 A ctive Bill Gonzáles MD Active SIMVASTATIN 40 MG TABS 1 qhs SIMVASTATIN 7248583444 5 Active Bill Gonzáles MD Active OMEPRAZOLE 40 MG CPDR 1 qd OMEPRAZOLE 40 MG CPDR 20020924 OMEPRAZOLE Inactive ZITHROMAX 250 MG TAB 2 po today, then 1 po q days 2-5 ZITHROMAX 250 MG TAB 7365226 AZITHROMYCIN Inactive TUSSIONEX PENNKINETIC ER 10-8 MG/5ML [...] for 2 days PREDNISONE 20 MG TAB 063483 PREDNISON E Inactive AMOXICILLIN 875 MG TABS 1 tab by mouth twice daily 201 11/15/00 AMOXICILLIN 875 MG TABS 415928 AMOXICILLIN Inactive Vital Signs Date Name Value Unit Range Description blood pressure, diastolic - 8462-4 74 mm[Hg] BP donald blood pressure, systolic - 8480-6 136 mm[Hg] BP sys height E&M - 8302-2 63.75 [in_us] Bdy h eight pulse rate E&M - 8867-4 61 /min H eart rate temperature E&M 97.9 [degF] Body temp erature weight E&M - 3141-9 139 [lb_av] Weigh t Measured blood pressure, diastolic - 8462-4 63 mm[Hg] BP donald blood pressure, systolic - 8480-6 112 mm[Hg] BP sys height E&M - 8302-2 63.75 [in_us] Bdy h eight pulse rate E&M - 8867-4 54 /min H eart rate temperature E&M 97.7 [degF] Body temp erature weight E&M - 3141-9 145 [lb_av] Weigh t Measured Diagnostic Results Date Name Value Unit Range Description Lab Report: MICROALBUMIN, UADIP (AUTO), Lipid Panel, Digoxin - Chemistry albumin/creatinine ratio, urine 30 - 300 mg/g mg/g{creat} 0-29 protein, total urine random Negative mg/dL Negative RBC, urine, dipstick Negative Negative cholesterol, serum 117 mg/dL 242-178 6046/10/04 triglyceride, serum, fasting 67 mg/dL 30-200 HDL cholesterol, serum 35 mg/dL 32-96 LDL cholesterol, serum 69 mg/dL 0-130 digoxin level, serum 0.0072 ng/mL Units c onverted. See lab report for original value. Lab Report: MICROALBUMIN, UADIP (AUTO), Lipid Panel, Digoxin - Lab microalbumin, urine 30 0-19 Lab Report: MICROALBUMIN, UADIP (AUTO), Lipid Panel, Digoxin - Urinalysis urobilinogen, urine, semiquantitative (dipstick) 0.2 Normal leukocyte esterase, urine, by dipstick Negative Negative nitrite, urine, semiquantitative Negative Neg ative glucose, urine, semiquantitative Negative Neg ative ketones, urine, by test strip Negative Negati ve bilirubin, urine Negative Negative urine color Yellow Colorless;Lightyellow;St raw;Yellow appearance, urine Clear Clear specific gravity, urine 1.010 1.000-1.030 pH, urine, semiquantitative 8.5 5.0-8.5 Office Visit: GET ESTABLISHED - Chemistr y cholesterol, target level 200 mg/dL LDL target level 100 mg/dL HDL cholesterol, serum, target level 40 mg/dL triglyceride, target level 150 mg/dL Office Visit: Med check - Chemistry cholesterol, target level 200 mg/dL LDL target level 100 mg/dL HDL cholesterol, serum, target level 40 mg/dL triglyceride, target level 150 mg/dL Encounters Code Encounter Date Provider Facility CPT-53504 Level 4 Est. 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 Patient 16:15:23 MULTIPLE LAUNCH ROCKET SYSTEM CREWMEMBER Bill holden MD [facility] CPT-01025 Level 4 Est. Patient 23:44:36 CDT Bill holden MD [facility] CPT-87932 Level 3 Est. Patient 14:02:53 MULTIPLE LAUNCH ROCKET SYSTEM CREWMEMBER Kendra rankin APRN [facility] Procedures Code Procedure Name Date Entry Date Standard Desc ription CPT-OV Office Visit 11:28:00 CDT CPT-OV Office Visit 15:01:24 CDT CPT-OV Office Visit 16:55:58 CDT CPT-OV Office Visit 16:05:31 MULTIPLE LAUNCH ROCKET SYSTEM CREWMEMBER CPT-OV Office Visit 09:47:16 MULTIPLE LAUNCH ROCKET SYSTEM CREWMEMBER CPT-OV Office Visit 20:31:04 CDT
--- OUTSIDE RECORDS SUMMARY | 2019-10-04 12:03 | XMS REPORT | Clinical Summary ---
Author Author Zoe, Alex Jacobs [facility] Address Unknown Phone Unavailable Allergies, Adverse Reactions, Alerts Allergy Name Reaction Description Start Date Severity Status Pr ovider No Known Allergies Javier lore Chaudhry Conditions or Problems Problem Name Problem [...] ophageal reflux BRONCHITIS-ACUTE 466.0 Inactive Kendra CONTRERAS title clerk bronchitis F/U EXAM FOLLOW CMPL TX W/HIGH-RISK MED NEC V67.51 Act brad Kendra Irving APRN Follow-up examination follow ing treatment with high-risk medication, not elsewhere classified CAD 414.00 Active Bill Gonzáles MD Coronary atherosclerosis of unspecified type of vessel, [place] or graft Sinusitis 461.9 Active Bill Gonzáles MD Acute sinusitis, unspecified BRONCHITIS-ACUTE ICD-466.0 Inactive Kendra josé APRN Medication List Medication Instructions Start Date Stop Date Generic Name NDC Status Provider Patient Instruction VIAGRA 50 MG TABS 1/2 TABLET 1 HR BEFORE BEDTIME SILDENAFIL CITRATE 13301639844 Active Essence PERALESA Active AMOXICILLIN 875 MG TABS 1 tab by mouth twice daily 201 11/15/00 AMOXICILLIN 10257552725 No Longer Active Bill Gonzáles MD Acti ve LANOXIN 0.125 MG TABS 1 tab po qd DIGOXIN 73041271746 Ac tive Bill Gonzáles MD Active VIAGRA 100 MG TABS 1/2 po 1 hr before sexual activity SILDENAFIL CITRATE 97745438776 No Longer Active Francisco J Mata MD Active TUSSIONEX PENNKINETIC ER 10-8 MG/5ML LQCR 5ml po q12hr PRN Cough HYDROCOD POLST-CHLORPHEN POLST 18855668134 No Longer Active Francisco J Mata MD Active ZITHROMAX 250 MG TAB 2 po today, then 1 po q days 2-5 AZITHROMYCIN 46669811296 No Longer Active Francisco J Mata MD A ctive PREDNISONE 20 MG TAB 2 tabs daily for 3 days, 1 t ab daily for 3 days, 1/2 tab daily for 2 days PREDNISONE 48259462053 No Longer Active Kendra Irving APRN Active OMEPRAZOLE 40 MG CPDR 1 qd OMEPRAZOLE 90911 058179 No Longer Active Kendra Irving APRN Active ASPIR-81 81 MG TBEC 1 qd ASPIRIN 44193338723 Activ e DANNY Tabor Active ATENOLOL 50 MG TABS 1 bid ATENOLOL 02955742066 Acti ve Bill Gonzáles MD Active CLONIDINE HCL 0.1 MG TABS 1 bid CLONIDINE HCL 44846 850643 Active Wilfredo Wood RN Active [facility]S VITAMIN E 1000 UNIT CAPS 1 qd VITAMIN E 435456 47685 Active DANNY Tabor Active DAILY MULTIPLE VITAMINS TABS 1 qd MULTIPLE V ITAMIN 99373899612 Active DANNY Tabor Active GARLIC OIL 500 MG TABS 1 qd GARLIC 06513629643 Ac blanca Morfin, Michael Active ZETIA 10 MG TABS 1 qd EZETIMIBE 62532532002 Active Bill Gonzáles MD Active KLOR-CON M20 20 MEQ CR-TABS 1 qd BLAKE Ba CHLORIDE JARRED CR 24800636625 Active Bill Gonzáles MD Active BUMETANIDE 2 MG TABS 1qd BUMETANIDE 21870977297 A ctive Bill Gonzáles MD Active SIMVASTATIN 40 MG TABS 1 qhs SIMVASTATIN 7475106503 6 Active Bill Gonzáles MD Active OMEPRAZOLE 40 MG CPDR 1 qd OMEPRAZOLE 40 MG CPDR 20020924 OMEPRAZOLE Inactive ZITHROMAX 250 MG TAB 2 po today, then 1 po q days 2-5 ZITHROMAX 250 MG TAB 5776310 AZITHROMYCIN Inactive TUSSIONEX PENNKINETIC ER 10-8 MG/5ML [...] for 2 days PREDNISONE 20 MG TAB 062749 PREDNISON E Inactive AMOXICILLIN 875 MG TABS 1 tab by mouth twice daily 201 11/15/00 AMOXICILLIN 875 MG TABS 009054 AMOXICILLIN Inactive Vital Signs Date Name Value Unit Range Description blood pressure, diastolic - 8462-4 74 mm[Hg] BP donald blood pressure, systolic - 8480-6 136 mm[Hg] BP sys height E&M - 8302-2 63.75 [in_us] Bdy h eight pulse rate E&M - 8867-4 61 /min H eart rate temperature E&M 97.9 [degF] Body temp erature weight E&M - 3141-9 139 [lb_av] Weigh t Measured Diagnostic Results Date Name Value Unit Range Description Office Visit: Med check - Chemistry cholesterol, target level 200 mg/dL LDL target level 100 mg/dL HDL cholesterol, serum, target level 40 mg/dL triglyceride, target level 150 mg/dL Encounters Code Encounter Date Provider Facility CPT-96663 Level 4 Est. Patient 20:03:37 MANAGER HEART Bill holden MD [facility] CPT-25367 Level 3 Est. Patient 16:15:23 MANAGER HEART Bill holden MD [facility] CPT-27239 Level 4 Est. Patient 23:44:36 CDT Bill holden MD [facility] CPT-15743 Level 3 Est. Patient 14:02:53 MANAGER HEART Kendra rankin APRN [facility] Procedures Code Procedure Name Date Entry Date Standard Desc ription CPT-OV Office Visit 11:28:00 CDT CPT-OV Office Visit 15:01:24 CDT CPT-OV Office Visit 16:55:58 CDT CPT-OV Office Visit 16:05:31 MANAGER HEART CPT-OV Office Visit 09:47:16 MANAGER HEART CPT-OV Office Visit 20:31:04 CDT
--- OUTSIDE RECORDS SUMMARY | 2019-10-04 12:03 | XMS REPORT | Clinical Summary ---
Author Author Zoe, Alex Jacobs [facility] Address Unknown Phone Unavailable Allergies, Adverse Reactions, [...] Coronary atherosclerosis of unspecified type of vessel, [place] or graft Sinusitis 461.9 Active Bill Gonzáles MD Acute sinusitis, unspecified Colon cancer screening V76.51 Active Kendra Yoon APRN Screening for malignant neoplasms of colon BRONCHITIS-ACUTE ICD-466.0 Inactive Kendra josé APRN Medication List Medication Instructions Start Date Stop Date Generic Name NDC Status Provider Patient Instruction MELOXICAM 7.5 MG TABS 1 tab by mouth every 12 hours as needed 10/08 MELOXICAM 78974845887 Active Bill Gonzáles MD Active VIAGRA 50 MG TABS 1/2 TABLET 1 HR BEFORE BEDTIME SILDENAFIL CITRATE 48425892954 Active Essence Benson RMA Active AMOXICILLIN 875 MG TABS 1 tab by mouth twice daily 201 11/15/00 AMOXICILLIN 88576169071 No Longer Active Bill Gonzáles MD Acti ve LANOXIN 0.125 MG TABS 1 tab po qd DIGOXIN 32483109417 Ac tive Bill Gonzáles MD Active VIAGRA 100 MG TABS 1/2 po 1 hr before sexual activity SILDENAFIL CITRATE 38993758563 No Longer Active Francisco J Mata MD Active TUSSIONEX PENNKINETIC ER 10-8 MG/5ML LQCR 5ml po q12hr PRN Cough HYDROCOD POLST-CHLORPHEN POLST 41428858133 No Longer Active Franicsco J Mata MD Active ZITHROMAX 250 MG TAB 2 po today, then 1 po q days 2-5 AZITHROMYCIN 92194064568 No Longer Active Francisco J Mata MD A ctive PREDNISONE 20 MG TAB 2 tabs daily for 3 days, 1 t ab daily for 3 days, 1/2 tab daily for 2 days PREDNISONE 37534282510 No Longer Active Kendra Irving APRN Active OMEPRAZOLE 40 MG CPDR 1 qd OMEPRAZOLE 43828 433263 No Longer Active Kendra Irving APRN Active ASPIR-81 81 MG TBEC 1 qd ASPIRIN 63547732364 Matilde e DANNY Tabor Active ATENOLOL 50 MG TABS 1 bid ATENOLOL 84810373211 Acti ve Bill Gonzáles MD Active CLONIDINE HCL 0.1 MG TABS 1 bid CLONIDINE HCL 61864 983544 Active Bill Gonzáles MD Active CVS VITAMIN E 1000 UNIT CAPS 1 qd VITAMIN E 430066 55555 Active DANNY Tabor Active DAILY MULTIPLE VITAMINS TABS 1 qd MULTIPLE V ITAMIN 02192165866 Active DANNY Tabor Active GARLIC OIL 500 MG TABS 1 qd GARLIC 42025299070 Ac tive Mario Alberto Morfin RMMichael Active ZETIA 10 MG TABS 1 qd EZETIMIBE 19368168713 Active Bill Gonzáles MD Active KLOR-CON M20 20 MEQ CR-TABS 1 qd BLAKE Ba CHLORIDE JARRED CR 72260418274 Active Bill Gonzáles MD Active BUMETANIDE 2 MG TABS 1qd BUMETANIDE 53846089292 A ctive Bill Gonzáles MD Active SIMVASTATIN 40 MG TABS 1 qhs SIMVASTATIN 8600396242 6 Active Bill Gonzáles MD Active OMEPRAZOLE 40 MG CPDR 1 qd OMEPRAZOLE 40 MG CPDR 073806 OMEPRAZOLE Inactive ZITHROMAX 250 MG TAB 2 po today, then 1 po q days 2-5 ZITHROMAX 250 MG TAB 9949603 AZITHROMYCIN Inactive TUSSIONEX PENNKINETIC ER 10-8 MG/5ML [...] for 2 days PREDNISONE 20 MG TAB 231977 PREDNISON E Inactive AMOXICILLIN 875 MG TABS 1 tab by mouth twice daily 201 11/15/00 AMOXICILLIN 875 MG TABS 591864 AMOXICILLIN Inactive Vital Signs Date Name Value [...] MICROALBUMIN - Chemistry sodium, serum 142 mmol/L 529-076 2367/02/23 potassium, serum 4.7 mmol/L 3.5-5.2 chloride, serum 102 mmol/L 98-107 carbon dioxide, venous blood 29.7 mmol/L 21.0-32 .0 blood glucose 92 mg/dL 65-110 urea nitrogen, blood 17 mg/dL 7-18 creatinine, serum 1.20 mg/dL 0.60-1.30 alanine aminotransferase (SGPT), serum 38 U/L 12-78 aspartate aminotransferase (SGOT), serum 25 U/L 15-37 calcium, serum 8.9 mg/dL 8.5-10.1 bilirubin, serum, total 0.60 mg/dL 0.00-1.00 cholesterol, serum 107 mg/dL 335-191 9454/02/23 triglyceride, serum, fasting 72 mg/dL 30-200 HDL [...] mg/dL Encounters Code Encounter Date Provider Facility CPT-67899 Level 4 Est. Patient 10:12:54 FOOD PRODUCTION MANAGER Bill holden MD [facility] CPT-65649 Level 4 Est. Patient 20:03:37 FOOD PRODUCTION MANAGER Bill holden MD [facility] CPT-54607 Level 3 Est. Patient 16:15:23 FOOD PRODUCTION MANAGER Bill holden MD [facility] CPT-75513 Level 4 Est. Patient 23:44:36 CDT Bill holden MD [facility] CPT-25475 Level 3 Est. Patient 14:02:53 FOOD PRODUCTION MANAGER Kendra rankin APRN [facility] Procedures Code Procedure Name Date Entry Date Standard Desc ription CPT-OV Office Visit 14:28:59 FOOD PRODUCTION MANAGER CPT-OV Office Visit 11:28:00 CDT CPT-OV Office Visit 15:01:24 CDT CPT-OV Office Visit 16:55:58 CDT CPT-OV Office Visit 16:05:31 FOOD PRODUCTION MANAGER CPT-OV Office Visit 09:47:16 FOOD PRODUCTION MANAGER CPT-OV Office Visit 20:31:04 CDT
--- OUTSIDE RECORDS SUMMARY | 2019-10-04 12:03 | XMS REPORT | Clinical Summary ---
Author Author Admin, Alex Jacobs [facility] Address Unknown Phone Unavailable Allergies, Adverse [...] Coronary atherosclerosis of unspecified type of vessel, ho-chunk or graft Sinusitis 461.9 Active Bill Gonzáles MD Acute sinusitis, unspecified BRONCHITIS-ACUTE ICD-466.0 Inactive Kendra josé APRN Medication List Medication Instructions Start Date Stop Date Generic Name NDC Status Provider Patient Instruction VIAGRA 50 MG TABS 1/2 TABLET 1 HR BEFORE BEDTIME SILDENAFIL CITRATE 45170262836 Active Essence Goeringer RMA Active AMOXICILLIN 875 MG TABS 1 tab by mouth twice daily 201 11/15/00 AMOXICILLIN 94455726744 No Longer Active Bill Gonzáles MD Acti ve LANOXIN 0.125 MG TABS 1 tab po qd DIGOXIN 05685469857 Ac tive Bill Gonzáles MD Active VIAGRA 100 MG TABS 1/2 po 1 hr before sexual activity SILDENAFIL CITRATE 82817892446 No Longer Active Francisco J Mata MD Active TUSSIONEX PENNKINETIC ER 10-8 MG/5ML LQCR 5ml po q12hr PRN Cough HYDROCOD POLST-CHLORPHEN POLST 29950033310 No Longer Active Francisco J Mata MD Active ZITHROMAX 250 MG TAB 2 po today, then 1 po q days 2-5 AZITHROMYCIN 81178069096 No Longer Active Francisco J Mata MD A ctive PREDNISONE 20 MG TAB 2 tabs daily for 3 days, 1 t ab daily for 3 days, 1/2 tab daily for 2 days PREDNISONE 92066838666 No Longer Active Kendra Irving APRN Active OMEPRAZOLE 40 MG CPDR 1 qd OMEPRAZOLE 02600 250449 No Longer Active Kendra Irving APRN Active ASPIR-81 81 MG TBEC 1 qd ASPIRIN 94403695896 Activ e DANNY Tabor Active ATENOLOL 50 MG TABS 1 bid ATENOLOL 48873698773 Acti ve Bill Gonzáles MD Active CLONIDINE HCL 0.1 MG TABS 1 bid CLONIDINE HCL 31002 127949 Active Wilfredo Wood RN Active [facility] VITAMIN E 1000 UNIT CAPS 1 qd VITAMIN E 199737 56415 Active DANNY Tabor Active DAILY MULTIPLE VITAMINS TABS 1 qd MULTIPLE V ITAMIN 54633438149 Active DANNY Tabor Active GARLIC OIL 500 MG TABS 1 qd GARLIC 65324384927 Rommel Morfin, Michael Active ZETIA 10 MG TABS 1 qd EZETIMIBE 22940668469 Active Bill Gonzáles MD Active KLOR-CON M20 20 MEQ CR-TABS 1 qd BLAKE Ba CHLORIDE JARRED CR 26218257098 Active Bill Gonzáles MD Active BUMETANIDE 2 MG TABS 1qd BUMETANIDE 67100520472 A ctive Bill Gonzáles MD Active SIMVASTATIN 40 MG TABS 1 qhs SIMVASTATIN 5654824545 5 Active Bill Gonzáles MD Active OMEPRAZOLE 40 MG CPDR 1 qd OMEPRAZOLE 40 MG CPDR 20020924 OMEPRAZOLE Inactive ZITHROMAX 250 MG TAB 2 po today, then 1 po q days 2-5 ZITHROMAX 250 MG TAB 2351768 AZITHROMYCIN Inactive TUSSIONEX PENNKINETIC ER 10-8 MG/5ML [...] for 2 days PREDNISONE 20 MG TAB 806359 PREDNISON E Inactive AMOXICILLIN 875 MG TABS 1 tab by mouth twice daily 201 11/15/00 AMOXICILLIN 875 MG TABS 287180 AMOXICILLIN Inactive Vital Signs Date Name Value Unit Range Description blood pressure, diastolic 74 mm[Hg] BP donald blood pressure, systolic 136 mm[Hg] BP sys height E&M 63.75 [in_us] Bdy height pulse rate E&M 61 /min Heart rate temperature E&M 97.9 [degF] Body temp erature weight E&M 139 [lb_av] Weight Measure d Diagnostic Results Date Name Value Unit Range Description Lab Report: MICROALBUMIN, UADIP (AUTO), Lipid Panel, Digoxin - Chemistry albumin/creatinine ratio, urine 30 - 300 mg/g mg/g{creat} 0-29 protein, total urine random Negative mg/dL Negative cholesterol, serum 117 mg/dL 354-382 4223/10/04 triglyceride, serum, fasting 67 mg/dL 30-200 HDL cholesterol, serum 35 mg/dL 32-96 LDL cholesterol, serum 69 mg/dL 0-130 digoxin level, serum 0.0072 ng/mL Units c onverted. See lab report for original value. RBC, urine, dipstick Negative Negative Lab Report: MICROALBUMIN, UADIP (AUTO), Lipid Panel, [...] pH, urine, semiquantitative 8.5 5.0-8.5 Office Visit: Med check - Chemistry triglyceride, target level 150 mg/dL HDL cholesterol, serum, target level 40 mg/dL LDL target level 100 mg/dL cholesterol, target level 200 mg/dL Encounters Code Encounter Date Provider Facility CPT-37180 Level 4 Est. Patient 20:03:37 WARE DRESSER Bill holden MD [facility] CPT-65824 Level 3 Est. Patient 16:15:23 WARE DRESSER Bill holden MD [facility] CPT-14773 Level 4 Est. Patient 23:44:36 CDT Bill holden MD [facility] CPT-10666 Level 3 Est. Patient 14:02:53 WARE DRESSER Kendra rankin APRN [facility] Procedures Code Procedure Name Date Entry Date Standard Desc ription CPT-OV Office Visit 11:28:00 CDT CPT-OV Office Visit 15:01:24 CDT CPT-OV Office Visit 16:55:58 CDT CPT-OV Office Visit 16:05:31 WARE DRESSER CPT-OV Office Visit 09:47:16 WARE DRESSER CPT-OV Office Visit 20:31:04 CDT
--- OUTSIDE RECORDS SUMMARY | 2019-10-04 12:03 | XMS REPORT | Clinical Summary ---
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 bronchitis F/U EXAM FOLLOW CMPL TX W/HIGH-RISK MED NEC V67.51 Act brad Kendra Irving APRN Follow-up examination follow ing treatment with high-risk medication, not elsewhere classified CAD 414.00 Active Bill Gonzáles MD Coronary atherosclerosis of unspecified type of vessel, [place] or graft Sinusitis 461.9 Active Bill Gonzáles MD Acute sinusitis, unspecified BRONCHITIS-ACUTE ICD-466.0 Inactive Kendra josé APRN Medication List Medication Instructions Start Date Stop Date Generic Name NDC Status Provider Patient Instruction VIAGRA 50 MG TABS 1/2 TABLET 1 HR BEFORE BEDTIME SILDENAFIL CITRATE 21084198698 Active Essence Goeringer RMA Active AMOXICILLIN 875 MG TABS 1 tab by mouth twice daily 201 11/15/00 AMOXICILLIN 79737248467 No Longer Active Bill Gonzáles MD Acti ve LANOXIN 0.125 MG TABS 1 tab po qd DIGOXIN 07941359808 Ac tive Bill Gonzáles MD Active VIAGRA 100 MG TABS 1/2 po 1 hr before sexual activity SILDENAFIL CITRATE 30504932864 No Longer Active Francisco J Mata MD Active TUSSIONEX PENNKINETIC ER 10-8 MG/5ML LQCR 5ml po q12hr PRN Cough HYDROCOD POLST-CHLORPHEN POLST 91597394790 No Longer Active Francisco J Mata MD Active ZITHROMAX 250 MG TAB 2 po today, then 1 po q days 2-5 AZITHROMYCIN 37079611533 No Longer Active Francisco J Mata MD A ctive PREDNISONE 20 MG TAB 2 tabs daily for 3 days, 1 t ab daily for 3 days, 1/2 tab daily for 2 days PREDNISONE 17426322395 No Longer Active Kendra Irving APRN Active OMEPRAZOLE 40 MG CPDR 1 qd OMEPRAZOLE 60879 584444 No Longer Active Kendra Irving APRN Active ASPIR-81 81 MG TBEC 1 qd ASPIRIN 00341796034 Activ e DANNY Tabor Active ATENOLOL 50 MG TABS 1 bid ATENOLOL 30593430600 Acti ve Bill Gonzáles MD Active CLONIDINE HCL 0.1 MG TABS 1 bid CLONIDINE HCL 95939 697098 Active Bill Gonzáles MD Active [facility]S VITAMIN E 1000 UNIT CAPS 1 qd VITAMIN E 831378 08059 Active DANNY Tabor Active DAILY MULTIPLE VITAMINS TABS 1 qd MULTIPLE V ITAMIN 22438791526 Active DANNY Tabor Active GARLIC OIL 500 MG TABS 1 qd GARLIC 86290556485 Ac tive Mario Alberto Morfin [facility] Active ZETIA 10 MG TABS 1 qd EZETIMIBE 39025162963 Active Bill Gonzáles MD Active KLOR-CON M20 20 MEQ CR-TABS 1 qd BLAKE Ba CHLORIDE JARRED CR 24429400280 Active Bill Gonzáles MD Active BUMETANIDE 2 MG TABS 1qd BUMETANIDE 54677500341 A ctive Bill Gonzáles MD Active SIMVASTATIN 40 MG TABS 1 qhs SIMVASTATIN 0607355392 6 Active Bill Gonzáles MD Active OMEPRAZOLE 40 MG CPDR 1 qd OMEPRAZOLE 40 MG CPDR 20020924 OMEPRAZOLE Inactive ZITHROMAX 250 MG TAB 2 po today, then 1 po q days 2-5 ZITHROMAX 250 MG TAB 7086921 AZITHROMYCIN Inactive TUSSIONEX PENNKINETIC ER 10-8 MG/5ML [...] for 2 days PREDNISONE 20 MG TAB 544211 PREDNISON E Inactive AMOXICILLIN 875 MG TABS 1 tab by mouth twice daily 201 11/15/00 AMOXICILLIN 875 MG TABS 253778 AMOXICILLIN Inactive Vital Signs Date Name Value [...] mg/dL Encounters Code Encounter Date Provider Facility CPT-63638 Level 4 Est. Patient 20:03:37 DELIVERY PERSON Bill holden MD [facility] CPT-85353 Level 3 Est. Patient 16:15:23 DELIVERY PERSON Bill holden MD [facility] CPT-40988 Level 4 Est. Patient 23:44:36 CDT Bill holden MD [facility] CPT-22946 Level 3 Est. Patient 14:02:53 DELIVERY PERSON Kendra rankin APRN [facility] Procedures Code Procedure Name Date Entry Date Standard Desc ription CPT-OV Office Visit 11:28:00 CDT CPT-OV Office Visit 15:01:24 CDT CPT-OV Office Visit 16:55:58 CDT CPT-OV Office Visit 16:05:31 DELIVERY PERSON CPT-OV Office Visit 09:47:16 DELIVERY PERSON CPT-OV Office Visit 20:31:04 CDT
--- OUTSIDE RECORDS SUMMARY | 2019-10-04 12:03 | XMS REPORT | Clinical Summary ---
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 bronchitis F/U EXAM FOLLOW CMPL TX W/HIGH-RISK [...] TABLET 1 HR BEFORE BEDTIME SILDENAFIL CITRATE 06380456308 Active Essence Goeringer RMA Active AMOXICILLIN 875 MG TABS 1 tab by mouth twice daily 201 11/15/00 AMOXICILLIN 91454221281 No Longer Active Bill Gonzáles MD Acti ve LANOXIN 0.125 MG TABS 1 tab po qd DIGOXIN 47825414824 Ac tive Bill Gonzáles MD Active VIAGRA 100 MG TABS 1/2 po 1 hr before sexual activity SILDENAFIL CITRATE 76175455378 No Longer Active Francisco J Mata MD Active TUSSIONEX PENNKINETIC ER 10-8 MG/5ML LQCR 5ml po q12hr PRN Cough HYDROCOD POLST-CHLORPHEN POLST 31868437255 No Longer Active Francisco J Mata MD Active ZITHROMAX 250 MG TAB 2 po today, then 1 po q days 2-5 AZITHROMYCIN 90532842374 No Longer Active Francisco J Mata MD A ctive PREDNISONE 20 MG TAB 2 tabs daily for 3 days, 1 t ab daily for 3 days, 1/2 tab daily for 2 days PREDNISONE 27605546246 No Longer Active Kendra Irving APRN Active OMEPRAZOLE 40 MG CPDR 1 qd OMEPRAZOLE 29610 360989 No Longer Active Kendra Irving APRN Active ASPIR-81 81 MG TBEC 1 qd ASPIRIN 79986837056 Activ e DANNY Tabor Active ATENOLOL 50 MG TABS 1 bid ATENOLOL 55704422547 Acti ve Bill Gonzáles MD Active CLONIDINE HCL 0.1 MG TABS 1 bid CLONIDINE HCL 15318 362072 Active Bill Gonzáles MD Active CVS VITAMIN E 1000 UNIT CAPS 1 qd VITAMIN E 770627 37945 Active DANNY Tabor Active DAILY MULTIPLE VITAMINS TABS 1 qd MULTIPLE V ITAMIN 10484264722 Active DANNY Tabor Active GARLIC OIL 500 MG TABS 1 qd GARLIC 01464750839 Ac tive Mario Alberto Morfin [facility] Active ZETIA 10 MG TABS 1 qd EZETIMIBE 63958025847 Active Bill Gonzáles MD Active KLOR-CON M20 20 MEQ CR-TABS 1 qd BLAKE Ba CHLORIDE JARRED CR 64884763633 Active Bill Gonzáles MD Active BUMETANIDE 2 MG TABS 1qd BUMETANIDE 66298135852 A ctive Bill Gonzáles MD Active SIMVASTATIN 40 MG TABS 1 qhs SIMVASTATIN 1678627782 6 Active Bill Gonzáles MD Active OMEPRAZOLE 40 MG CPDR 1 qd OMEPRAZOLE 40 MG CPDR 20020924 OMEPRAZOLE Inactive ZITHROMAX 250 MG TAB 2 po today, then 1 po q days 2-5 ZITHROMAX 250 MG TAB 6305820 AZITHROMYCIN Inactive TUSSIONEX PENNKINETIC ER 10-8 MG/5ML [...] for 2 days PREDNISONE 20 MG TAB 510180 PREDNISON E Inactive AMOXICILLIN 875 MG TABS 1 tab by mouth twice daily 201 11/15/00 AMOXICILLIN 875 MG TABS 443145 AMOXICILLIN Inactive Encounters Code Encounter Date Provider Facility CPT-27888 Level 4 Est. Patient 20:03:37 JEWELRY MAKING INSTRUCTOR Bill holden MD [facility] CPT-61889 Level 3 Est. Patient 16:15:23 JEWELRY MAKING INSTRUCTOR Bill holden MD [facility] CPT-94938 Level 4 Est. Patient 23:44:36 CDT Bill holden MD [facility] CPT-86105 Level 3 Est. Patient 14:02:53 JEWELRY MAKING INSTRUCTOR Kendra rankin APRN [facility] Procedures Code Procedure Name Date Entry Date Standard Desc ription CPT-OV Office Visit 11:28:00 CDT CPT-OV Office Visit 15:01:24 CDT CPT-OV Office Visit 16:55:58 CDT CPT-OV Office Visit 16:05:31 JEWELRY MAKING INSTRUCTOR CPT-OV Office Visit 09:47:16 JEWELRY MAKING INSTRUCTOR CPT-OV Office Visit 20:31:04 CDT
--- OUTSIDE RECORDS SUMMARY | 2019-10-04 12:03 | XMS REPORT | Clinical Summary ---
Author Author Zoe, Alex Jacobs [facility] Address Unknown Phone Unavailable Allergies, Adverse Reactions, [...] ophageal reflux BRONCHITIS-ACUTE 466.0 Inactive Kendra CONTRERAS sales solutions representative bronchitis F/U EXAM FOLLOW CMPL TX W/HIGH-RISK MED NEC V67.51 Act brad Kendra Irving APRN Follow-up examination follow ing treatment with high-risk medication, not elsewhere classified CAD 414.00 Active Bill Gonzáles MD Coronary atherosclerosis of unspecified type of vessel, [place] or graft Sinusitis 461.9 Active Bill Gonzáles MD Acute sinusitis, unspecified Colon cancer screening V76.51 Active Kendra Yoon APRN Screening for malignant neoplasms of colon BRONCHITIS-ACUTE ICD-466.0 Inactive Kendra josé APRN Medication List Medication Instructions Start Date Stop Date Generic Name NDC Status Provider Patient Instruction MELOXICAM 7.5 MG TABS 1 tab by mouth every 12 hours as needed 10/08 MELOXICAM 26702546745 Active Bill Gonzáles MD Active VIAGRA 50 MG TABS 1/2 TABLET 1 HR BEFORE BEDTIME SILDENAFIL CITRATE 49364838677 Active Essence Benson RMA Active AMOXICILLIN 875 MG TABS 1 tab by mouth twice daily 201 11/15/00 AMOXICILLIN 05921139733 No Longer Active Bill Gonzáles MD Acti ve LANOXIN 0.125 MG TABS 1 tab po qd DIGOXIN 15405021661 Ac tive Bill Gonzáles MD Active VIAGRA 100 MG TABS 1/2 po 1 hr before sexual activity SILDENAFIL CITRATE 01179746225 No Longer Active Francisco J Mata MD Active TUSSIONEX PENNKINETIC ER 10-8 MG/5ML LQCR 5ml po q12hr PRN Cough HYDROCOD POLST-CHLORPHEN POLST 60172280969 No Longer Active Francisco J Mata MD Active ZITHROMAX 250 MG TAB 2 po today, then 1 po q days 2-5 AZITHROMYCIN 17344422289 No Longer Active Francisco J Mata MD A ctive PREDNISONE 20 MG TAB 2 tabs daily for 3 days, 1 t ab daily for 3 days, 1/2 tab daily for 2 days PREDNISONE 01056151603 No Longer Active Kendra Irving APRN Active OMEPRAZOLE 40 MG CPDR 1 qd OMEPRAZOLE 46401 157471 No Longer Active Kendra Irving APRN Active ASPIR-81 81 MG TBEC 1 qd ASPIRIN 40498769445 DANNY [place] Active ATENOLOL 50 MG TABS 1 bid ATENOLOL 42643493631 Active Svetlana Clayton Active CLONIDINE HCL 0.1 MG TABS 1 bid CLONIDINE HCL 93322 987914 Active Bill Gonzáles MD Active CVS VITAMIN E 1000 UNIT CAPS 1 qd VITAMIN E 002356 06770 Active DANNY Tabor Active DAILY MULTIPLE VITAMINS TABS 1 qd MULTIPLE V ITAMIN 31733932449 Active DANNY Tabor Active GARLIC OIL 500 MG TABS 1 qd GARLIC 10401800367 Ac tive Mario Alberto Morfin RMM[facility] Active ZETIA 10 MG TABS 1 qd EZETIMIBE 39386630302 Active Nemo Eddie SNOWBOARD DESIGNER Active KLOR-CON M20 20 MEQ CR-TABS 1 qd BLAKE M CHLORIDE JARRED CR 57259418271 Active Bill Gonzáles MD Active BUMETANIDE 2 MG TABS 1qd BUMETANIDE 35829813256 A ctive Nemolarry Morgan APRN Active SIMVASTATIN 40 MG TABS 1 qhs SIMVASTATIN 7020836347 6 Active Bill Gonzáles MD Active OMEPRAZOLE 40 MG CPDR 1 qd OMEPRAZOLE 40 MG CPDR 009142 OMEPRAZOLE Inactive ZITHROMAX 250 MG TAB 2 po today, then 1 po q days 2-5 ZITHROMAX 250 MG TAB 3941030 AZITHROMYCIN Inactive TUSSIONEX PENNKINETIC ER 10-8 MG/5ML [...] for 2 days PREDNISONE 20 MG TAB 748123 PREDNISON E Inactive AMOXICILLIN 875 MG TABS 1 tab by mouth twice daily 201 11/15/00 AMOXICILLIN 875 MG TABS 652781 AMOXICILLIN Inactive Encounters Code Encounter Date Provider Facility CPT-54284 Level 4 Est. Patient 10:12:54 SELF PAY COLLECTOR Bill holden MD [facility] CPT-77111 Level 4 Est. Patient 20:03:37 SELF PAY COLLECTOR Bill holden MD [facility] CPT-15852 Level 3 Est. Patient 16:15:23 SELF PAY COLLECTOR Bill holden MD [facility] CPT-03039 Level 4 Est. Patient 23:44:36 CDT Bill holden MD [facility] CPT-91299 Level 3 Est. Patient 14:02:53 SELF PAY COLLECTOR Kendra rankin APRN [facility] Procedures Code Procedure Name Date Entry Date Standard Desc ription CPT-OV Office Visit 14:28:59 SELF PAY COLLECTOR CPT-OV Office Visit 11:28:00 CDT CPT-OV Office Visit 15:01:24 CDT CPT-OV Office Visit 16:55:58 CDT CPT-OV Office Visit 16:05:31 SELF PAY COLLECTOR CPT-OV Office Visit 09:47:16 SELF PAY COLLECTOR CPT-OV Office Visit 20:31:04 CDT
--- OUTSIDE RECORDS SUMMARY | 2019-10-04 12:03 | XMS REPORT | Clinical Summary ---
Author Author Zoe, Alex Jacobs [facility] Address Unknown Phone Allergies, Adverse Reactions, Alerts [...] ophageal reflux BRONCHITIS-ACUTE 466.0 Inactive Kendra CONTRERAS therapist respiratory bronchitis F/U EXAM FOLLOW CMPL TX W/HIGH-RISK MED NEC V67.51 Act brad Kendra Irving APRN Follow-up examination follow ing treatment with high-risk medication, not elsewhere classified CAD 414.00 Active Bill Gonzáles MD Coronary atherosclerosis of unspecified type of vessel, [place] or graft Sinusitis 461.9 Active Bill Gonzáles MD Acute sinusitis, unspecified BRONCHITIS-ACUTE ICD-466.0 Inactive Kendra josé APRN Medication List Medication Instructions Start Date Stop Date Generic Name NDC Status Provider Patient Instruction AMOXICILLIN 875 MG TABS 1 tab by mouth twice daily 201 11/15/00 AMOXICILLIN 97324466583 No Longer Active Bill Gonzáles MD Acti ve LANOXIN 0.125 MG TABS 1 tab po qd DIGOXIN 80211342130 Ac tive Bill Gonzáles MD Active VIAGRA 100 MG TABS 1/2 po 1 hr before sexual activity SILDENAFIL CITRATE 89038638860 No Longer Active Francisco J Mata MD Active TUSSIONEX PENNKINETIC ER 10-8 MG/5ML LQCR 5ml po q12hr PRN Cough HYDROCOD POLST-CHLORPHEN POLST 18325665791 No Longer Active Francisco J Mata MD Active ZITHROMAX 250 MG TAB 2 po today, then 1 po q days 2-5 AZITHROMYCIN 72007002530 No Longer Active Francisco J Mata MD A ctive PREDNISONE 20 MG TAB 2 tabs daily for 3 days, 1 t ab daily for 3 days, 1/2 tab daily for 2 days PREDNISONE 23011958151 No Longer Active Kendra Irving APRN Active OMEPRAZOLE 40 MG CPDR 1 qd OMEPRAZOLE 21787 899294 No Longer Active Kendra Irving APRN Active ASPIR-81 81 MG TBEC 1 qd ASPIRIN 96442257144 Activ e Mario Alberto Morfin Active ATENOLOL 50 MG TABS 1 bid ATENOLOL 65504740613 Acti ve Bill Gonzáles MD Active CLONIDINE HCL 0.1 MG TABS 1 bid CLONIDINE HCL 27321 959905 Active Wilfredo Wood Active CVS VITAMIN E 1000 UNIT CAPS 1 qd VITAMIN E 277713 13948 Active Edmeston Edmonson Active DAILY MULTIPLE VITAMINS TABS 1 qd MULTIPLE V ITAMIN 26379661025 Active Mario Alberto [place] Active GARLIC OIL 500 MG TABS 1 qd GARLIC 06917129620 Ac tive Mario Alberto Morfin Active ZETIA 10 MG TABS 1 qd EZETIMIBE 03698397185 Active Bill Gonzáles MD Active KLOR-CON M20 20 MEQ CR-TABS 1 qd BLAKE Ba CHLORIDE JARRED CR 58336906459 Active Bill Gonzáles MD Active BUMETANIDE 2 MG TABS 1qd BUMETANIDE 31590940171 A ctive Bill Gonzáles MD Active SIMVASTATIN 40 MG TABS 1 qhs SIMVASTATIN 9226645844 5 Active Bill Gonzáles MD Active OMEPRAZOLE 40 MG CPDR 1 qd OMEPRAZOLE 40 MG CPDR 20020924 OMEPRAZOLE Inactive ZITHROMAX 250 MG TAB 2 po today, then 1 po q days 2-5 ZITHROMAX 250 MG TAB 0318866 AZITHROMYCIN Inactive TUSSIONEX PENNKINETIC ER 10-8 MG/5ML [...] for 2 days PREDNISONE 20 MG TAB 089799 PREDNISON E Inactive AMOXICILLIN 875 MG TABS 1 tab by mouth twice daily 201 11/15/00 AMOXICILLIN 875 MG TABS 465664 AMOXICILLIN Inactive Vital Signs Date Name Value [...] Negative mg/dL Negative cholesterol, serum 117 mg/dL 305-968 8169/10/04 triglyceride, serum, fasting 67 mg/dL 30-200 HDL cholesterol, serum 35 mg/dL 32-96 LDL cholesterol, serum 69 mg/dL 0-130 digoxin level, serum 0.0072 ng/mL Units c onverted. See lab report for original value. RBC, urine, dipstick Negative Negative Lab Report: MICROALBUMIN, UADIP (AUTO), Lipid Panel, Digoxin - Lab microalbumin, urine 30 0-19 Lab Report: MICROALBUMIN, UADIP (AUTO), Lipid Panel, Digoxin - Urinalysis glucose, urine, semiquantitative Negative Neg ative ketones, urine, by test strip Negative Negati ve bilirubin, urine Negative Negative urine color Yellow Colorless;Lightyellow;St raw;Yellow appearance, urine Clear Clear specific gravity, urine 1.010 1.000-1.030 pH, urine, semiquantitative 8.5 5.0-8.5 urobilinogen, urine, semiquantitative (dipstick) 0.2 Normal leukocyte esterase, urine, by dipstick Negative Negative nitrite, urine, semiquantitative Negative Neg ative Office Visit: GET ESTABLISHED - Chemistr y triglyceride, target level 150 mg/dL HDL cholesterol, serum, target level 40 mg/dL LDL target level 100 mg/dL cholesterol, target level 200 mg/dL Office Visit: Med check - Chemistry cholesterol, target level 200 mg/dL LDL target level 100 mg/dL HDL cholesterol, serum, target level 40 mg/dL triglyceride, target level 150 mg/dL Encounters Code Encounter Date Provider Facility CPT-76988 Level 4 Est. Patient 20:03:37 TRAINING PROGRAM MANAGER Bill holden MD [facility] CPT-50090 Level 3 Est. Patient 16:15:23 TRAINING PROGRAM MANAGER Bill holden MD [facility] CPT-55164 Level 4 Est. Patient 23:44:36 CDT Bill holden MD [facility] CPT-49221 Level 3 Est. Patient 14:02:53 TRAINING PROGRAM MANAGER Kendra rankin APRN [facility] Procedures Code Procedure Name Date Entry Date Standard Desc ription CPT-OV Office Visit 11:28:00 CDT CPT-OV Office Visit 15:01:24 CDT CPT-OV Office Visit 16:55:58 CDT CPT-OV Office Visit 16:05:31 TRAINING PROGRAM MANAGER CPT-OV Office Visit 09:47:16 TRAINING PROGRAM MANAGER CPT-OV Office Visit 20:31:04 CDT
--- OUTSIDE RECORDS SUMMARY | 2019-10-04 12:03 | XMS REPORT | Clinical Summary ---
Author Author Zoe, Alex Jacobs [facility] Address Unknown Phone Unavailable Allergies, Adverse Reactions, Alerts Allergy Name Reaction Description Start Date Severity Status Pr ovider No Known Allergies Javier Chaudhry NKDA Critical Active Kendra Yoon APR N [...] of unspecified type of vessel, [place] or graft Sinusitis 461.9 Active Bill Gonzáles MD Acute sinusitis, unspecified Colon cancer screening V76.51 Active Kendra Yoon APRN Screening for malignant neoplasms of colon BRONCHITIS-ACUTE ICD-466.0 Inactive Kendra josé APRN Medication List Medication Instructions Start Date Stop Date Generic Name [facility] Status Provider Patient Instruction MELOXICAM 7.5 MG TABS 1 tab by mouth every 12 hours as needed 10/08 MELOXICAM 43595927525 Active Bill Gonzáles MD Active VIAGRA 50 MG TABS 1/2 TABLET 1 HR BEFORE BEDTIME SILDENAFIL CITRATE 70934373538 Active Essence Benson RMA Active AMOXICILLIN 875 MG TABS 1 tab by mouth twice daily 201 11/15/00 AMOXICILLIN 56604759894 No Longer Active Bill Gonzáles MD Acti ve LANOXIN 0.125 MG TABS 1 tab po qd DIGOXIN 00997437698 Ac tive Bill Gonzáles MD Active VIAGRA 100 MG TABS 1/2 po 1 hr before sexual activity SILDENAFIL CITRATE 35442451061 No Longer Active Francisco J Mata MD Active TUSSIONEX PENNKINETIC ER 10-8 MG/5ML LQCR 5ml po q12hr PRN Cough HYDROCOD POLST-CHLORPHEN POLST 42605063296 No Longer Active Francisco J Mata MD Active ZITHROMAX 250 MG TAB 2 po today, then 1 po q days 2-5 AZITHROMYCIN 54122823099 No Longer Active Francisco J Mata MD A ctive PREDNISONE 20 MG TAB 2 tabs daily for 3 days, 1 t ab daily for 3 days, 1/2 tab daily for 2 days PREDNISONE 41181499251 No Longer Active Kendra Ivring APRN Active OMEPRAZOLE 40 MG CPDR 1 qd OMEPRAZOLE 47699 532121 No Longer Active Kendra Irving APRN Active ASPIR-81 81 MG TBEC 1 qd ASPIRIN 21979747705 Activ e DANNY Tabor Active ATENOLOL 50 MG TABS 1 bid ATENOLOL 32268055624 Acti ve Bill Gonzáles MD Active CLONIDINE HCL 0.1 MG TABS 1 bid CLONIDINE HCL 58659 228019 Active Bill Gonzáles MD Active CVS VITAMIN E 1000 UNIT CAPS 1 qd VITAMIN E 921700 93619 Active Mario Alberto Morfin RMMichael Active DAILY MULTIPLE VITAMINS TABS 1 qd MULTIPLE V ITAMIN 05234513911 Active Mario Alberto Morfin RMMichael Active GARLIC OIL 500 MG TABS 1 qd GARLIC 27346881993 Ac tive Mario Alberto Morfin RMA Active ZETIA 10 MG TABS 1 qd EZETIMIBE 77841047682 Active Bill Gonzáles MD Active KLOR-CON M20 20 MEQ CR-TABS 1 qd BLAKE Ba CHLORIDE JARRED CR 42084632420 Active Bill Gonzáles MD Active BUMETANIDE 2 MG TABS 1qd BUMETANIDE 75948227400 A ctive Bill Gonzáles MD Active SIMVASTATIN 40 MG TABS 1 qhs SIMVASTATIN 9131261062 6 Active Bill Gonzáles MD Active OMEPRAZOLE 40 MG CPDR 1 qd OMEPRAZOLE 40 MG CPDR 284585 OMEPRAZOLE Inactive ZITHROMAX 250 MG TAB 2 po today, then 1 po q days 2-5 ZITHROMAX 250 MG TAB 3979746 AZITHROMYCIN Inactive TUSSIONEX PENNKINETIC ER 10-8 MG/5ML [...] for 2 days PREDNISONE 20 MG TAB 775553 PREDNISON E Inactive AMOXICILLIN 875 MG TABS 1 tab by mouth twice daily 201 11/15/00 AMOXICILLIN 875 MG TABS 980052 AMOXICILLIN Inactive Diagnostic Results Date Name Value Unit Range Description Lab Report: Comp. Metabolic Panel, CBC, Lipid Panel, Digoxin, MICROALBUMIN - Chemistry sodium, serum 142 mmol/L 067-330 8100/02/23 potassium, serum 4.7 mmol/L 3.5-5.2 chloride, serum 102 mmol/L 98-107 carbon dioxide, venous blood 29.7 mmol/L 21.0-32 .0 blood glucose 92 mg/dL 65-110 urea nitrogen, blood 17 mg/dL 7-18 creatinine, serum 1.20 mg/dL 0.60-1.30 alanine aminotransferase (SGPT), serum 38 U/L 12-78 aspartate aminotransferase (SGOT), serum 25 U/L 15-37 calcium, serum 8.9 mg/dL 8.5-10.1 bilirubin, serum, total 0.60 mg/dL 0.00-1.00 cholesterol, serum 107 mg/dL 104-861 3664/02/23 triglyceride, serum, fasting 72 mg/dL 30-200 HDL [...] MICROALBUMIN - Lab microalbumin, urine 10 0-19 Encounters Code Encounter Date Provider Facility CPT-64635 Level 4 Est. Patient 10:12:54 MANAGER LOGISTIC Bill holden MD [facility] CPT-79018 Level 4 Est. Patient 20:03:37 MANAGER LOGISTIC Bill holden MD [facility] CPT-48640 Level 3 Est. Patient 16:15:23 MANAGER LOGISTIC Bill holden MD [facility] CPT-56868 Level 4 Est. Patient 23:44:36 CDT Bill holden MD [facility] CPT-79961 Level 3 Est. Patient 14:02:53 MANAGER LOGISTIC Kendra rankin APRN [facility] Procedures Code Procedure Name Date Entry Date Standard Desc ription CPT-OV Office Visit 14:28:59 MANAGER LOGISTIC CPT-OV Office Visit 11:28:00 CDT CPT-OV Office Visit 15:01:24 CDT CPT-OV Office Visit 16:55:58 CDT CPT-OV Office Visit 16:05:31 MANAGER LOGISTIC CPT-OV Office Visit 09:47:16 MANAGER LOGISTIC CPT-OV Office Visit 20:31:04 CDT
--- OUTSIDE RECORDS SUMMARY | 2019-10-04 12:03 | XMS REPORT | Clinical Summary ---
Author Author Admin, Alex Jacobs [facility] Address Unknown Phone Allergies, Adverse Reactions, Alerts [...] FH DIABETES V18.0 Active Mario Alberto Mann jeanentte history of diabetes mellitus PERSONAL HISTORY MALIGNANT NEOPLASM ESOPHAGUS V10.03 Active Francisco J Mtaa MD Personal history of malignant neoplasm of esophagus G E R D 530.81 Active Kendra Irving APRN Es ophageal reflux BRONCHITIS-ACUTE 466.0 Inactive Kendra CONTRERAS paper ruler bronchitis F/U EXAM FOLLOW CMPL TX W/HIGH-RISK MED NEC V67.51 Act brad Kendra Irving PHYSICIAN EXTENDER Follow-up examination follow ing treatment with high-risk medication, not elsewhere classified CAD 414.00 Active Bill Gonzáles MD Coronary atherosclerosis of unspecified type of vessel, [place] or graft Sinusitis 461.9 Active Bill Gonzáles MD Acute sinusitis, unspecified BRONCHITIS-ACUTE ICD-466.0 Inactive Kendra josé APRN Medication List Medication Instructions Start Date Stop Date Generic Name NDC Status Provider Patient Instruction AMOXICILLIN 875 MG TABS 1 tab by mouth twice daily 201 11/15/00 AMOXICILLIN 92118962560 No Longer Active Bill Gonzáles MD Acti ve LANOXIN 0.125 MG TABS 1 tab po qd DIGOXIN 33442718727 Ac tive Bill Gonzáles MD Active VIAGRA 100 MG TABS 1/2 po 1 hr before sexual activity SILDENAFIL CITRATE 51087351684 No Longer Active Francisco J Mata MD Active TUSSIONEX PENNKINETIC ER 10-8 MG/5ML LQCR 5ml po q12hr PRN Cough HYDROCOD POLST-CHLORPHEN POLST 88211989817 No Longer Active Francisco J Mata MD Active ZITHROMAX 250 MG TAB 2 po today, then 1 po q days 2-5 AZITHROMYCIN 12685985148 No Longer Active Francisco J Mata MD A ctive PREDNISONE 20 MG TAB 2 tabs daily for 3 days, 1 t ab daily for 3 days, 1/2 tab daily for 2 days PREDNISONE 28920221417 No Longer Active Kendra Irving APRN Active OMEPRAZOLE 40 MG CPDR 1 qd OMEPRAZOLE 97414 433877 No Longer Active Kendra Irving APRN Active ASPIR-81 81 MG TBEC 1 qd ASPIRIN 11343257385 Activ e Mario Alberto Morfin Active ATENOLOL 50 MG TABS 1 bid ATENOLOL 27522994807 Acti ve Bill Gonzáles MD Active CLONIDINE HCL 0.1 MG TABS 1 bid CLONIDINE HCL 97023 515036 Active Wilfredo Wood Active CVS VITAMIN E 1000 UNIT CAPS 1 qd VITAMIN E 160982 18932 Active [place] Navjot Active DAILY MULTIPLE VITAMINS TABS 1 qd MULTIPLE V ITAMIN 62608626389 Active Mario Alberto [place] Active GARLIC OIL 500 MG TABS 1 qd GARLIC 05528837886 Ac tive Mario Alberto Morfin Active ZETIA 10 MG TABS 1 qd EZETIMIBE 89752852394 Active Bill Gonzáles MD Active KLOR-CON M20 20 MEQ CR-TABS 1 qd BLAKE Ba CHLORIDE JARRED CR 62927448899 Active Bill Gonzáles MD Active BUMETANIDE 2 MG TABS 1qd BUMETANIDE 22466782472 A ctive Bill Gonzáles MD Active SIMVASTATIN 40 MG TABS 1 qhs SIMVASTATIN 1329675002 5 Active Bill Gonzáles MD Active OMEPRAZOLE 40 MG CPDR 1 qd OMEPRAZOLE 40 MG CPDR 20020924 OMEPRAZOLE Inactive ZITHROMAX 250 MG TAB 2 po today, then 1 po q days 2-5 ZITHROMAX 250 MG TAB 7350819 AZITHROMYCIN Inactive TUSSIONEX PENNKINETIC ER 10-8 MG/5ML [...] for 2 days PREDNISONE 20 MG TAB 330282 PREDNISON E Inactive AMOXICILLIN 875 MG TABS 1 tab by mouth twice daily 201 11/15/00 AMOXICILLIN 875 MG TABS 790135 AMOXICILLIN Inactive Vital Signs Date Name Value Unit Range Description blood pressure, diastolic 74 mm[Hg] BP donald blood pressure, systolic 136 mm[Hg] BP sys height E&M 63.75 [in_us] Bdy height pulse rate E&M 61 /min Heart rate temperature E&M 97.9 [degF] Body temp erature weight E&M 139 [lb_av] Weight Measure d blood pressure, diastolic 63 mm[Hg] BP donald blood pressure, systolic 112 mm[Hg] BP sys height E&M 63.75 [in_us] Bdy height pulse rate E&M 54 /min Heart rate temperature E&M 97.7 [degF] Body temp erature weight E&M 145 [lb_av] Weight Measure d Diagnostic Results Date Name Value Unit Range Description Lab Report: MICROALBUMIN, UADIP (AUTO), Lipid Panel, Digoxin - Chemistry albumin/creatinine ratio, urine 30 - 300 mg/g mg/g{creat} 0-29 protein, total urine random Negative mg/dL Negative RBC, urine, dipstick Negative Negative cholesterol, serum 117 mg/dL 413-310 5182/10/04 triglyceride, serum, fasting 67 mg/dL 30-200 HDL [...] mg/dL Encounters Code Encounter Date Provider Facility CPT-48367 Level 4 Est. Patient 20:03:37 PROFESSOR OF CRIMINAL JUSTICE Bill holden MD [facility] CPT-25003 Level 3 Est. Patient 16:15:23 PROFESSOR OF CRIMINAL JUSTICE Bill holden MD [facility] CPT-26230 Level 4 Est. Patient 23:44:36 CDT Bill holden MD [facility] CPT-78594 Level 3 Est. Patient 14:02:53 PROFESSOR OF CRIMINAL JUSTICE Kendra rankin APRN [facility] Procedures Code Procedure Name Date Entry Date Standard Desc ription CPT-OV Office Visit 11:28:00 CDT CPT-OV Office Visit 15:01:24 CDT CPT-OV Office Visit 16:55:58 CDT CPT-OV Office Visit 16:05:31 PROFESSOR OF CRIMINAL JUSTICE CPT-OV Office Visit 09:47:16 PROFESSOR OF CRIMINAL JUSTICE CPT-OV Office Visit 20:31:04 CDT
--- OUTSIDE RECORDS SUMMARY | 2019-10-04 12:04 | XMS REPORT | Clinical Summary ---
Author Author Zoe, Alex Jacobs [facility] Address Unknown Phone Unavailable Allergies, Adverse [...] Coronary atherosclerosis of unspecified type of vessel, [place] or graft Sinusitis 461.9 Active Bill Gonzáles MD Acute sinusitis, unspecified Colon cancer screening V76.51 Active Kendra Yoon APRN Screening for malignant neoplasms of colon BRONCHITIS-ACUTE ICD-466.0 Inactive Kendra josé APRN Medication List Medication Instructions Start Date Stop Date Generic Name NDC Status Provider Patient Instruction MELOXICAM 7.5 MG TABS 1 tab by mouth every 12 hours as needed 10/08 MELOXICAM 76261888952 Active Bill Gonzáles MD Active VIAGRA 50 MG TABS 1/2 TABLET 1 HR BEFORE BEDTIME SILDENAFIL CITRATE 19756948663 Active Essence Benson RMA Active AMOXICILLIN 875 MG TABS 1 tab by mouth twice daily 201 11/15/00 AMOXICILLIN 12264522755 No Longer Active Bill Gonzáles MD Acti ve LANOXIN 0.125 MG TABS 1 tab po qd DIGOXIN 60782539099 Ac tive Bill Gonzáles MD Active VIAGRA 100 MG TABS 1/2 po 1 hr before sexual activity SILDENAFIL CITRATE 21681659553 No Longer Active Francisco J Mata MD Active TUSSIONEX PENNKINETIC ER 10-8 MG/5ML LQCR 5ml po q12hr PRN Cough HYDROCOD POLST-CHLORPHEN POLST 56158095673 No Longer Active Francisco J Mata MD Active ZITHROMAX 250 MG TAB 2 po today, then 1 po q days 2-5 AZITHROMYCIN 90269964636 No Longer Active Francisco J Mata MD A ctive PREDNISONE 20 MG TAB 2 tabs daily for 3 days, 1 t ab daily for 3 days, 1/2 tab daily for 2 days PREDNISONE 88005452864 No Longer Active Kendra Irving APRN Active OMEPRAZOLE 40 MG CPDR 1 qd OMEPRAZOLE 36796 381698 No Longer Active Kendra Irving APRN Active ASPIR-81 81 MG TBEC 1 qd ASPIRIN 76591928730 Matilde e DANNY Tabor Active ATENOLOL 50 MG TABS 1 bid ATENOLOL 14614013840 Acti ve Bill Gonzáles MD Active CLONIDINE HCL 0.1 MG TABS 1 bid CLONIDINE HCL 86721 180850 Active Bill Gonzáles MD Active CVS VITAMIN E 1000 UNIT CAPS 1 qd VITAMIN E 629287 12292 Active DANNY Tabor Active DAILY MULTIPLE VITAMINS TABS 1 qd MULTIPLE V ITAMIN 13123438831 Active DANNY Tabor Active GARLIC OIL 500 MG TABS 1 qd GARLIC 79384948137 Ac tive Mario Alberto Morfin RMMichael Active ZETIA 10 MG TABS 1 qd EZETIMIBE 47337370165 Active Bill Gonzáles MD Active KLOR-CON M20 20 MEQ CR-TABS 1 qd BLAKE Ba CHLORIDE JARRED CR 97241035244 Active Bill Gonzáles MD Active BUMETANIDE 2 MG TABS 1qd BUMETANIDE 93607146975 A ctive Bill Gonzáles MD Active SIMVASTATIN 40 MG TABS 1 qhs SIMVASTATIN 3081652262 6 Active Bill Gonzáles MD Active OMEPRAZOLE 40 MG CPDR 1 qd OMEPRAZOLE 40 MG CPDR 209042 OMEPRAZOLE Inactive ZITHROMAX 250 MG TAB 2 po today, then 1 po q days 2-5 ZITHROMAX 250 MG TAB 5047711 AZITHROMYCIN Inactive TUSSIONEX PENNKINETIC ER 10-8 MG/5ML [...] for 2 days PREDNISONE 20 MG TAB 322389 PREDNISON E Inactive AMOXICILLIN 875 MG TABS 1 tab by mouth twice daily 201 11/15/00 AMOXICILLIN 875 MG TABS 095426 AMOXICILLIN Inactive Vital Signs Date Name Value [...] MICROALBUMIN - Chemistry sodium, serum 142 mmol/L 467-472 9718/02/23 potassium, serum 4.7 mmol/L 3.5-5.2 chloride, serum 102 mmol/L 98-107 carbon dioxide, venous blood 29.7 mmol/L 21.0-32 .0 blood glucose 92 mg/dL 65-110 urea nitrogen, blood 17 mg/dL 7-18 creatinine, serum 1.20 mg/dL 0.60-1.30 alanine aminotransferase (SGPT), serum 38 U/L 12-78 aspartate aminotransferase (SGOT), serum 25 U/L 15-37 calcium, serum 8.9 mg/dL 8.5-10.1 bilirubin, serum, total 0.60 mg/dL 0.00-1.00 cholesterol, serum 107 mg/dL 576-532 6505/02/23 triglyceride, serum, fasting 72 mg/dL 30-200 HDL [...] mg/dL Encounters Code Encounter Date Provider Facility CPT-49344 Level 4 Est. Patient 10:12:54 LEATHER COLORER Bill holden MD [facility] CPT-60412 Level 4 Est. Patient 20:03:37 LEATHER COLORER Bill holden MD [facility] CPT-08083 Level 3 Est. Patient 16:15:23 LEATHER COLORER Bill holden MD [facility] CPT-23095 Level 4 Est. Patient 23:44:36 CDT Bill holden MD [facility] CPT-78275 Level 3 Est. Patient 14:02:53 LEATHER COLORER Kendra rankin APRN [facility] Procedures Code Procedure Name Date Entry Date Standard Desc ription CPT-OV Office Visit 14:28:59 LEATHER COLORER CPT-OV Office Visit 11:28:00 CDT CPT-OV Office Visit 15:01:24 CDT CPT-OV Office Visit 16:55:58 CDT CPT-OV Office Visit 16:05:31 LEATHER COLORER CPT-OV Office Visit 09:47:16 LEATHER COLORER CPT-OV Office Visit 20:31:04 CDT
--- OUTSIDE RECORDS SUMMARY | 2019-10-04 12:04 | XMS REPORT | Clinical Summary ---
Author Author Zoe, Alex Jacobs [facility] Address Unknown Phone Unavailable Allergies, Adverse Reactions, [...] Coronary atherosclerosis of unspecified type of vessel, [place] or graft Sinusitis 461.9 Active Bill Gonzáles MD Acute sinusitis, unspecified Colon cancer screening V76.51 Active Kendra Yoon APRN Screening for malignant neoplasms of colon BRONCHITIS-ACUTE ICD-466.0 Inactive Kendra josé APRN Medication List Medication Instructions Start Date Stop Date Generic Name NDC Status Provider Patient Instruction MELOXICAM 7.5 MG TABS 1 tab by mouth every 12 hours as needed 10/08 MELOXICAM 39312613675 Active Bill Gonzáles MD Active VIAGRA 50 MG TABS 1/2 TABLET 1 HR BEFORE BEDTIME SILDENAFIL CITRATE 76582794597 Active Essence Benson RMA Active AMOXICILLIN 875 MG TABS 1 tab by mouth twice daily 201 11/15/00 AMOXICILLIN 90629393048 No Longer Active Bill Gonzáles MD Acti ve LANOXIN 0.125 MG TABS 1 tab po qd DIGOXIN 09702509411 Ac tive Bill Gonzáles MD Active VIAGRA 100 MG TABS 1/2 po 1 hr before sexual activity SILDENAFIL CITRATE 85785175320 No Longer Active Francisco J Mata MD Active TUSSIONEX PENNKINETIC ER 10-8 MG/5ML LQCR 5ml po q12hr PRN Cough HYDROCOD POLST-CHLORPHEN POLST 77565538646 No Longer Active Francisco J Mata MD Active ZITHROMAX 250 MG TAB 2 po today, then 1 po q days 2-5 AZITHROMYCIN 05059628051 No Longer Active Francisco J Mata MD A ctive PREDNISONE 20 MG TAB 2 tabs daily for 3 days, 1 t ab daily for 3 days, 1/2 tab daily for 2 days PREDNISONE 87881196268 No Longer Active Kendra Irving APRN Active OMEPRAZOLE 40 MG CPDR 1 qd OMEPRAZOLE 35592 687559 No Longer Active Kendra Irving APRN Active ASPIR-81 81 MG TBEC 1 qd ASPIRIN 71433871018 Matilde e DANNY Tabor Active ATENOLOL 50 MG TABS 1 bid ATENOLOL 23554245629 Acti ve Bill Gonzáles MD Active CLONIDINE HCL 0.1 MG TABS 1 bid CLONIDINE HCL 79855 077815 Active Bill Gonzáles MD Active CVS VITAMIN E 1000 UNIT CAPS 1 qd VITAMIN E 110189 17857 Active DANNY Tabor Active DAILY MULTIPLE VITAMINS TABS 1 qd MULTIPLE V ITAMIN 84092440923 Active DANNY Tabor Active GARLIC OIL 500 MG TABS 1 qd GARLIC 27696732900 Ac tive Mario Alberto Morfin RMMichael Active ZETIA 10 MG TABS 1 qd EZETIMIBE 63437861311 Active Bill Gonzáles MD Active KLOR-CON M20 20 MEQ CR-TABS 1 qd BLAKE Ba CHLORIDE JARRED CR 96229336640 Active Bill Gonzálse MD Active BUMETANIDE 2 MG TABS 1qd BUMETANIDE 91670511673 A ctive Bill Gonzáles MD Active SIMVASTATIN 40 MG TABS 1 qhs SIMVASTATIN 6689638939 6 Active Bill Gonzáles MD Active OMEPRAZOLE 40 MG CPDR 1 qd OMEPRAZOLE 40 MG CPDR 710381 OMEPRAZOLE Inactive ZITHROMAX 250 MG TAB 2 po today, then 1 po q days 2-5 ZITHROMAX 250 MG TAB 5366631 AZITHROMYCIN Inactive TUSSIONEX PENNKINETIC ER 10-8 MG/5ML [...] for 2 days PREDNISONE 20 MG TAB 489946 PREDNISON E Inactive AMOXICILLIN 875 MG TABS 1 tab by mouth twice daily 201 11/15/00 AMOXICILLIN 875 MG TABS 582772 AMOXICILLIN Inactive Vital Signs Date Name Value [...] MICROALBUMIN - Chemistry sodium, serum 142 mmol/L 538-705 2645/02/23 potassium, serum 4.7 mmol/L 3.5-5.2 chloride, serum 102 mmol/L 98-107 carbon dioxide, venous blood 29.7 mmol/L 21.0-32 .0 blood glucose 92 mg/dL 65-110 urea nitrogen, blood 17 mg/dL 7-18 creatinine, serum 1.20 mg/dL 0.60-1.30 alanine aminotransferase (SGPT), serum 38 U/L 12-78 aspartate aminotransferase (SGOT), serum 25 U/L 15-37 calcium, serum 8.9 mg/dL 8.5-10.1 bilirubin, serum, total 0.60 mg/dL 0.00-1.00 cholesterol, serum 107 mg/dL 848-871 1618/02/23 triglyceride, serum, fasting 72 mg/dL 30-200 HDL [...] mg/dL Encounters Code Encounter Date Provider Facility CPT-68981 Level 4 Est. Patient 10:12:54 MACHINE OPERATOR PACKAGING Bill holden MD [facility] CPT-92690 Level 4 Est. Patient 20:03:37 MACHINE OPERATOR PACKAGING Bill holden MD [facility] CPT-64576 Level 3 Est. Patient 16:15:23 MACHINE OPERATOR PACKAGING Bill holden MD [facility] CPT-92233 Level 4 Est. Patient 23:44:36 CDT Bill holden MD [facility] CPT-77149 Level 3 Est. Patient 14:02:53 MACHINE OPERATOR PACKAGING Kendra rankin APRN [facility] Procedures Code Procedure Name Date Entry Date Standard Desc ription CPT-OV Office Visit 14:28:59 MACHINE OPERATOR PACKAGING CPT-OV Office Visit 11:28:00 CDT CPT-OV Office Visit 15:01:24 CDT CPT-OV Office Visit 16:55:58 CDT CPT-OV Office Visit 16:05:31 MACHINE OPERATOR PACKAGING CPT-OV Office Visit 09:47:16 MACHINE OPERATOR PACKAGING CPT-OV Office Visit 20:31:04 CDT
--- OUTSIDE RECORDS SUMMARY | 2019-10-04 12:04 | XMS REPORT | Clinical Summary ---
Author Author Zoe, Alex Jacobs [facility] Address Unknown Phone Unavailable Allergies, Adverse Reactions, Alerts Allergy Name Reaction Description Start Date Severity Status Pr ovider No Known Allergies Svetlana morrison NKDA Critical Active Kendra Yoon APR N [...] Coronary atherosclerosis of unspecified type of vessel, [place] or graft Sinusitis 461.9 Active Bill Gonzáles MD Acute sinusitis, unspecified Colon cancer screening V76.51 Active Kendra Yoon APRN Screening for malignant neoplasms of colon BRONCHITIS-ACUTE ICD-466.0 Inactive Kendra josé APRN Medication List Medication Instructions Start Date Stop Date Generic Name [facility] Status Provider Patient Instruction MELOXICAM 7.5 MG TABS 1 tab by mouth every 12 hours as needed 10/08 MELOXICAM 85461845628 Active Bill Gonzáles MD Active VIAGRA 50 MG TABS 1/2 TABLET 1 HR BEFORE BEDTIME SILDENAFIL CITRATE 16969404292 Active Essence Benson RMA Active AMOXICILLIN 875 MG TABS 1 tab by mouth twice daily 201 11/15/00 AMOXICILLIN 54713740893 No Longer Active Bill Gonzáles MD Acti ve LANOXIN 0.125 MG TABS 1 tab po qd DIGOXIN 16538204454 Ac tive Bill Gonzáles MD Active VIAGRA 100 MG TABS 1/2 po 1 hr before sexual activity SILDENAFIL CITRATE 98305921652 No Longer Active Francisco J Mata MD Active TUSSIONEX PENNKINETIC ER 10-8 MG/5ML LQCR 5ml po q12hr PRN Cough HYDROCOD POLST-CHLORPHEN POLST 04345819664 No Longer Active Francisco J Mata MD Active ZITHROMAX 250 MG TAB 2 po today, then 1 po q days 2-5 AZITHROMYCIN 10093742123 No Longer Active Francisco J Mata MD A ctive PREDNISONE 20 MG TAB 2 tabs daily for 3 days, 1 t ab daily for 3 days, 1/2 tab daily for 2 days PREDNISONE 61209023908 No Longer Active Kendra Irving APRN Active OMEPRAZOLE 40 MG CPDR 1 qd OMEPRAZOLE 20719 076085 No Longer Active Kendra Irving APRN Active ASPIR-81 81 MG TBEC 1 qd ASPIRIN 41790500026 Activ e DANNY Tabor Active ATENOLOL 50 MG TABS 1 bid ATENOLOL 72143982317 Acti ve Bill Gonzáles MD Active CLONIDINE HCL 0.1 MG TABS 1 bid CLONIDINE HCL 56006 379763 Active Bill Gonzáles MD Active CVS VITAMIN E 1000 UNIT CAPS 1 qd VITAMIN E 643384 47515 Active Mario Alberto Morfin RMMichael Active DAILY MULTIPLE VITAMINS TABS 1 qd MULTIPLE V ITAMIN 54368976622 Active Mario Alberto Morfin RMMichael Active GARLIC OIL 500 MG TABS 1 qd GARLIC 90296887217 Ac tive Mario Alberto Morfin, RMA Active ZETIA 10 MG TABS 1 qd EZETIMIBE 88980113525 Active Bill Gonzáles MD Active KLOR-CON M20 20 MEQ CR-TABS 1 qd BLAKE Ba CHLORIDE JARRED CR 00172787340 Active Bill Gonzáles MD Active BUMETANIDE 2 MG TABS 1qd BUMETANIDE 27771033831 A ctive Bill Gonzáles MD Active SIMVASTATIN 40 MG TABS 1 qhs SIMVASTATIN 5886687256 6 Active Bill Gonzáles MD Active OMEPRAZOLE 40 MG CPDR 1 qd OMEPRAZOLE 40 MG CPDR 231640 OMEPRAZOLE Inactive ZITHROMAX 250 MG TAB 2 po today, then 1 po q days 2-5 ZITHROMAX 250 MG TAB 7089510 AZITHROMYCIN Inactive TUSSIONEX PENNKINETIC ER 10-8 MG/5ML [...] for 2 days PREDNISONE 20 MG TAB 903490 PREDNISON E Inactive AMOXICILLIN 875 MG TABS 1 tab by mouth twice daily 201 11/15/00 AMOXICILLIN 875 MG TABS 923765 AMOXICILLIN Inactive Vital Signs Date Name Value [...] MICROALBUMIN - Chemistry sodium, serum 142 mmol/L 509-571 6733/02/23 potassium, serum 4.7 mmol/L 3.5-5.2 chloride, serum 102 mmol/L 98-107 carbon dioxide, venous blood 29.7 mmol/L 21.0-32 .0 blood glucose 92 mg/dL 65-110 urea nitrogen, blood 17 mg/dL 7-18 creatinine, serum 1.20 mg/dL 0.60-1.30 alanine aminotransferase (SGPT), serum 38 U/L 12-78 aspartate aminotransferase (SGOT), serum 25 U/L 15-37 calcium, serum 8.9 mg/dL 8.5-10.1 bilirubin, serum, total 0.60 mg/dL 0.00-1.00 cholesterol, serum 107 mg/dL 493-881 7702/02/23 triglyceride, serum, fasting 72 mg/dL 30-200 HDL [...] mg/dL Encounters Code Encounter Date Provider Facility CPT-49505 Level 4 Est. Patient 10:12:54 HEALTH AND SAFETY DIRECTOR Bill holden MD [facility] CPT-57875 Level 4 Est. Patient 20:03:37 HEALTH AND SAFETY DIRECTOR Bill holden MD [facility] CPT-83275 Level 3 Est. Patient 16:15:23 HEALTH AND SAFETY DIRECTOR Bill holden MD [facility] CPT-42574 Level 4 Est. Patient 23:44:36 CDT Bill holden MD [facility] CPT-26562 Level 3 Est. Patient 14:02:53 HEALTH AND SAFETY DIRECTOR Kendra rankin APRN [facility] Procedures Code Procedure Name Date Entry Date Standard Desc ription CPT-OV Office Visit 14:28:59 HEALTH AND SAFETY DIRECTOR CPT-OV Office Visit 11:28:00 CDT CPT-OV Office Visit 15:01:24 CDT CPT-OV Office Visit 16:55:58 CDT CPT-OV Office Visit 16:05:31 HEALTH AND SAFETY DIRECTOR CPT-OV Office Visit 09:47:16 HEALTH AND SAFETY DIRECTOR CPT-OV Office Visit 20:31:04 CDT
--- OUTSIDE RECORDS SUMMARY | 2019-10-04 12:04 | XMS REPORT ---
Author Author [facility] Medic al StaffJHON Organization [facility] Address [address], [place] [id number] Phone [phone] Care Team Providers Care Spiral Runner Name Role Phone CULLEN KHALIL MD PP [phone] CULLEN KHALIL MD PP [phone] Summary purpose TRANSITION OF CARE AUTO GENERATION Chief Complaint and Reason for Visit Admit Diagnosis 1 SCREENING MAL JOHN COLON Problem list No authorized problems tracked for continuity of care are available for this vis it. Encounters The following conditions tracked for encounter diagnoses were recorded for this visit: Finding or Diagnosis Status Certainty Chronicity Onset *COLONOSCOPY Active Medications Home Medications Medication Directions Started Status Source ezetimibe 10 mg tablet 10 mg Oral 1 Daily for CHOLESTEROL Current Patient medication list potassium chloride 20 mEq Oral Packet 20 mEq Oral 1 Daily for SUPPL . Current Patient medication list garlic 500 mg capsule 500 mg Oral 1 Daily for SUPPL. C urrent Patient medication list Multiple Vitamins tablet 1 tablet Oral 1 Daily for SUPPL. Current Patient medication list vitamin E 1,000 unit capsule 1000 iu Oral 1 Daily for SUPPL. Current Patient medication list aspirin 81 mg tablet 81 mg Oral 1 Daily for HEART CIRC. Current Patient medication list atenolol 50 mg tablet 50 mg Oral 2 Times Daily for HTN Current Patient medication list clonidine 0.1 mg tablet 0.1 mg Oral 2 Times Daily for HTN Current Patient medication list bumetanide 2 mg tablet 2 mg Oral 1 Daily for FLUID RETENTION Current Patient medication list digoxin 0.25 mg/5 mL (5 mL) Oral Soln 0.25 mg Oral 1 Daily for HRT Current Patient medication list simvastatin 40 mg tablet 40 mg Oral At Bed Time for CHOLESTEROL Current Patient medication list meloxicam 7.5 mg tablet 1 tablet oral Every 12 Hours Current Patient medication list Viagra 50 mg tablet 0.5 tablet oral At Bed Time Curre nt Patient medication list Allergies, adverse reactions, alerts Allergen Category Ingredient Status Reaction Severity Onset No known drug allergies No known drug allergies No known drug al lergies Confirmed or Verified Immunizations No immunizations recorded for this patient visit Relevant diagnostic tests and/or laboratory data No authorized results are available for this patient visit History of procedures Procedure Code Code Type Description Date Performed Performing Physician 45.42 ICD9-CM ENDO POLYPECTOMY/COLON 10-17-2014 15872 CPT-4 LESION REMOVAL COLONOSCOPY 10-17-2014 VINAY KNOWLES J7120 CPT-4 RINGERS LACTATE INFUSION 10-17-2014 Johnnie KNOWLES J2250 CPT-4 INJ MIDAZOLAM HYDROCHLORIDE 10-17-2014 VINAY KNOWLES J3010 CPT-4 FENTANYL CITRATE INJECITON 10-17-2014 VINAY KNOWLES J2704 CPT-4 INJ, PROPOFOL, 10 MG 10-17-2014 KRYSTLE KNOWLES Functional status Functional Status Finding Observation Time Hearing Prob Loc none 28-00-983201:57 Vision Problems yes 21-03-218615:52 Vision Correct Dev glasses 47-56-548066:52 Ambulation Asst Dev none 21-64-903116:57 Range of Motion full 78-28-450353:00 Muscle Strength RUE 5 ROM full resist 85-68-696737:00 Muscle Strength RLE 5 ROM full resist 94-61-597128:00 Muscle Strength LUE 5 ROM full resist 30-02-463950:00 Muscle Strength LLE 5 ROM full resist 74-72-501316:00 Transfers assist x 1 10-92-346564:00 Ambulation in room 00-82-897633:00 Balance steady 29-51-432205:00 Bathing Assistance none 15-34-221412:57 Eating Assistance none 50-55-306383:57 Dressing Assistance none 83-11-320575:57 Toileting Assistance none 14-90-889127:57 Transfer Assistance none 74-35-515040:57 Decline Slf Care/Mob no 11-63-335579:57 Phys Cond Stable yes 44-08-107970:57 Nutrition normal 12-10-171911:00 Diet regular 80-47-697915:00 Oral Cavity moist and intact 87-37-896411:00 Teeth dentures 09-07-869378:00 Dental Hygiene good 07-57-297133:00 Abdomen Appearance flat 72-80-456432:00 Abdomen soft 19-40-025253:00 Bowel Sounds present 08-50-266406:00 NG Tube no 22-56-072470:00 Feeding Tube none :00 Dai no 43-41-931073:00 Cont Bladder Irr no 12-75-538337:00 Ostomy no 68-09-701402:00 Stool other (specify) 53-15-306553:00 Urination normal :00 Quality sym/unlabored :00 Cough productive :00 Secretions yes :00 Secretion Consist thin :00 Secretion Color clear :00 Breath Sounds RUL clear :00 Breath Sounds RML clear :00 Breath Sounds RLL clear :00 Breath Sounds MARIANGEL clear :00 Breath Sounds LLL clear 86-98-687542:00 Airway natural :00 Chest Tube no 12-47-393814:00 Oxygen no 26-63-212340:30 C-PAP no 08-25-101450:00 BI-PAP no 62-93-681277:00 Temp >100.4 no 99-94-910686:00 Temp <96.8 no 11-05-557673:00 Chills with rigors no 37-57-645726:00 HR > 90bpm no 27-44-894708:00 Respirations > 20 no 30-72-097193:00 Systolic <90 no 74-47-890884:00 headache stiff neck no :00 Rapid Resp no 42-24-111832:00 IV Site Location L hand :45 IV Type peripheral 06-46-375587:00 IV Site Information discontinued :45 IV Site Start Attmpt 1 times :06 IV Site Pérez 20 97-58-447065:00 IV Site Appearance WNL 33-78-550095:00 IV Site Color clear 38-61-354691:00 IV Site Patent yes 02-40-106257:00 Dressing Type occlusive :00 Nursing Note Pt dc'd to home in stable co ndition ambulatory with friend in personal vehical. Belongings intact. :50 Cognitive Status Finding Observation Time Learning Ability comprehends well :45 Neurological no :45 Psychological no :45 Physical no :45 Hearing no 45-19-215097:45 Flat Folder Needed no :45 Sign Language no :45 Emotional no :45 Vision yes :45 Laguage no :45 Financial no :45 Vital signs Type Value Date Respiration Rate 18breaths per minute 17-11-584246: 30 Pulse 52beats per minute :30 Oxygen Saturation 97% :30 BP Systolic 125mmHg 92-10-869928:30 BP Diastolic 53mmHg 99-18-849323:30 Temperature 96.0F :58 Height 65inches 85-75-983958:56 Weight 137LB 04-04-320586:56 Social history Type Value Smoking Status FORMER SMOKER Treatment Plan No treatment plan text is available for this visit. Hospital discharge instructions Discharge Date/Time 10/17/14 1050 Accompanied By Bob Relationship friend Dismissal Condition good Disposition on DC home Valuables yes Valuable Type cell phone Valuables Returned T patient DC Inst/Educ Give yes Exit Care Educ Given yes PNE Vac Yrs ago Flu Vac Yrs ago Tetanus Vac Unknown Diet Explained yes
--- OUTSIDE RECORDS SUMMARY | 2019-10-04 12:04 | XMS REPORT | Clinical Summary ---
Author Author Admin, Alex Jacobs [facility] Address Unknown Phone Unavailable Allergies, Adverse [...] Coronary atherosclerosis of unspecified type of vessel, [place] or graft Sinusitis 461.9 Active Bill Gonzáles MD Acute sinusitis, unspecified BRONCHITIS-ACUTE ICD-466.0 Inactive Kendra josé APRN Medication List Medication Instructions Start Date Stop Date Generic Name NDC Status Provider Patient Instruction VIAGRA 50 MG TABS 1/2 TABLET 1 HR BEFORE BEDTIME SILDENAFIL CITRATE 56768145576 Active Essence Goeringer RMA Active AMOXICILLIN 875 MG TABS 1 tab by mouth twice daily 201 11/15/00 AMOXICILLIN 81341575374 No Longer Active Bill Gonzáles MD Acti ve LANOXIN 0.125 MG TABS 1 tab po qd DIGOXIN 07969754122 Ac tive Bill Gonzáles MD Active VIAGRA 100 MG TABS 1/2 po 1 hr before sexual activity SILDENAFIL CITRATE 91091500718 No Longer Active Francisco J Mata MD Active TUSSIONEX PENNKINETIC ER 10-8 MG/5ML LQCR 5ml po q12hr PRN Cough HYDROCOD POLST-CHLORPHEN POLST 76239024485 No Longer Active Francisco J Mata MD Active ZITHROMAX 250 MG TAB 2 po today, then 1 po q days 2-5 AZITHROMYCIN 96390216198 No Longer Active Francisco J Mata MD A ctive PREDNISONE 20 MG TAB 2 tabs daily for 3 days, 1 t ab daily for 3 days, 1/2 tab daily for 2 days PREDNISONE 86034704236 No Longer Active Kendra Irving APRN Active OMEPRAZOLE 40 MG CPDR 1 qd OMEPRAZOLE 05309 488713 No Longer Active Kendra Irving APRN Active ASPIR-81 81 MG TBEC 1 qd ASPIRIN 53334125306 Activ e DANNY Tabor Active ATENOLOL 50 MG TABS 1 bid ATENOLOL 04993822455 Acti ve Bill Gonzáles MD Active CLONIDINE HCL 0.1 MG TABS 1 bid CLONIDINE HCL 08544 132392 Active Wilfredo Wood RN Active [facility] VITAMIN E 1000 UNIT CAPS 1 qd VITAMIN E 083021 94520 Active DANNY Tabor Active DAILY MULTIPLE VITAMINS TABS 1 qd MULTIPLE V ITAMIN 58804298570 Active DANNY Tabor Active GARLIC OIL 500 MG TABS 1 qd GARLIC 90788289963 Ac blanca Morfin Michael Active ZETIA 10 MG TABS 1 qd EZETIMIBE 62453148503 Active Bill Gonzáles MD Active KLOR-CON M20 20 MEQ CR-TABS 1 qd BLAKE Ba CHLORIDE JARRED CR 88543473281 Active Bill Gonzáles MD Active BUMETANIDE 2 MG TABS 1qd BUMETANIDE 21726773219 A ctive Bill Gonzáles MD Active SIMVASTATIN 40 MG TABS 1 qhs SIMVASTATIN 9045147005 6 Active Bill Gonzáles MD Active OMEPRAZOLE 40 MG CPDR 1 qd OMEPRAZOLE 40 MG CPDR 20020924 OMEPRAZOLE Inactive ZITHROMAX 250 MG TAB 2 po today, then 1 po q days 2-5 ZITHROMAX 250 MG TAB 7169725 AZITHROMYCIN Inactive TUSSIONEX PENNKINETIC ER 10-8 MG/5ML [...] for 2 days PREDNISONE 20 MG TAB 639577 PREDNISON E Inactive AMOXICILLIN 875 MG TABS 1 tab by mouth twice daily 201 11/15/00 AMOXICILLIN 875 MG TABS 213468 AMOXICILLIN Inactive Vital Signs Date Name Value [...] mg/dL Encounters Code Encounter Date Provider Facility CPT-50583 Level 4 Est. Patient 20:03:37 METAL NEUTRALIZER Bill holden MD [facility] CPT-89921 Level 3 Est. Patient 16:15:23 METAL NEUTRALIZER Bill holden MD [facility] CPT-96588 Level 4 Est. Patient 23:44:36 CDT Bill holden MD [facility] CPT-15918 Level 3 Est. Patient 14:02:53 METAL NEUTRALIZER Kendra rankin APRN [facility] Procedures Code Procedure Name Date Entry Date Standard Desc ription CPT-OV Office Visit 11:28:00 CDT CPT-OV Office Visit 15:01:24 CDT CPT-OV Office Visit 16:55:58 CDT CPT-OV Office Visit 16:05:31 METAL NEUTRALIZER CPT-OV Office Visit 09:47:16 METAL NEUTRALIZER CPT-OV Office Visit 20:31:04 CDT
--- OUTSIDE RECORDS SUMMARY | 2019-10-04 12:04 | XMS REPORT | Clinical Summary ---
Author Author Admin, [facility] Address Unknown Phone Unavailable Allergies, Adverse Reactions, [...] Coronary atherosclerosis of unspecified type of vessel, [place] or graft Sinusitis 461.9 Active Bill Gonzáles MD Acute sinusitis, unspecified BRONCHITIS-ACUTE ICD-466.0 Inactive Kendra josé APRN Medication List Medication Instructions Start Date Stop Date Generic Name NDC Status Provider Patient Instruction VIAGRA 50 MG TABS 1/2 TABLET 1 HR BEFORE BEDTIME SILDENAFIL CITRATE 61218939988 Active Essence Goeringer RMA Active AMOXICILLIN 875 MG TABS 1 tab by mouth twice daily 201 11/15/00 AMOXICILLIN 02176063851 No Longer Active Bill Gonzáles MD Acti ve LANOXIN 0.125 MG TABS 1 tab po qd DIGOXIN 91981417088 Ac tive Bill Gonzáles MD Active VIAGRA 100 MG TABS 1/2 po 1 hr before sexual activity SILDENAFIL CITRATE 16034327342 No Longer Active Francisco J Mata MD Active TUSSIONEX PENNKINETIC ER 10-8 MG/5ML LQCR 5ml po q12hr PRN Cough HYDROCOD POLST-CHLORPHEN POLST 02420864382 No Longer Active Francisco J Mata MD Active ZITHROMAX 250 MG TAB 2 po today, then 1 po q days 2-5 AZITHROMYCIN 82204522452 No Longer Active Francisco J Mata MD A ctive PREDNISONE 20 MG TAB 2 tabs daily for 3 days, 1 t ab daily for 3 days, 1/2 tab daily for 2 days PREDNISONE 44431926631 No Longer Active Kendra Irving APRN Active OMEPRAZOLE 40 MG CPDR 1 qd OMEPRAZOLE 18957 029064 No Longer Active Kendra Irving APRN Active ASPIR-81 81 MG TBEC 1 qd ASPIRIN 50117570393 Activ e DANNY Tabor Active ATENOLOL 50 MG TABS 1 bid ATENOLOL 67195432000 Acti ve Bill Gonzáles MD Active CLONIDINE HCL 0.1 MG TABS 1 bid CLONIDINE HCL 06235 487108 Active Wilfredo Wood RN Active [facility] VITAMIN E 1000 UNIT CAPS 1 qd VITAMIN E 035618 36920 Active DANNY Tabor Active DAILY MULTIPLE VITAMINS TABS 1 qd MULTIPLE V ITAMIN 35600517104 Active DANNY Tabor Active GARLIC OIL 500 MG TABS 1 qd GARLIC 62092225778 Rommel Morfin, Michael Active ZETIA 10 MG TABS 1 qd EZETIMIBE 31729174054 Active Bill Gonzáles MD Active KLOR-CON M20 20 MEQ CR-TABS 1 qd BLAKE Ba CHLORIDE JARRED CR 61995455242 Active Bill Gonzáles MD Active BUMETANIDE 2 MG TABS 1qd BUMETANIDE 41227356227 A ctive Bill Gonzáles MD Active SIMVASTATIN 40 MG TABS 1 qhs SIMVASTATIN 1730766684 5 Active Bill Gonzáles MD Active OMEPRAZOLE 40 MG CPDR 1 qd OMEPRAZOLE 40 MG CPDR 20020924 OMEPRAZOLE Inactive ZITHROMAX 250 MG TAB 2 po today, then 1 po q days 2-5 ZITHROMAX 250 MG TAB 5234423 AZITHROMYCIN Inactive TUSSIONEX PENNKINETIC ER 10-8 MG/5ML [...] for 2 days PREDNISONE 20 MG TAB 039018 PREDNISON E Inactive AMOXICILLIN 875 MG TABS 1 tab by mouth twice daily 201 11/15/00 AMOXICILLIN 875 MG TABS 439790 AMOXICILLIN Inactive Vital Signs Date Name Value [...] Negative mg/dL Negative cholesterol, serum 117 mg/dL 570-927 3721/10/04 triglyceride, serum, fasting 67 mg/dL 30-200 HDL [...] 5.0-8.5 Office Visit: Med check - Chemistry cholesterol, target level 200 mg/dL LDL target level 100 mg/dL HDL cholesterol, serum, target level 40 mg/dL triglyceride, target level 150 mg/dL Encounters Code Encounter Date Provider Facility CPT-09207 Level 4 Est. Patient 20:03:37 SUPPORTABILITY ENGINEER [facility] CPT-46933 Level 3 Est. Patient 16:15:23 SUPPORTABILITY ENGINEER [facility] CPT-10656 Level 4 Est. Patient 23:44:36 CDT Bill [facility] CPT-41410 Level 3 Est. Patient 14:02:53 SUPPORTABILITY ENGINEER Kendra rankin APRN [facility] Procedures Code Procedure Name Date Entry Date Standard Desc ription CPT-OV Office Visit 11:28:00 CDT CPT-OV Office Visit 15:01:24 CDT CPT-OV Office Visit 16:55:58 CDT CPT-OV Office Visit 16:05:31 SUPPORTABILITY ENGINEER CPT-OV Office Visit 09:47:16 SUPPORTABILITY ENGINEER CPT-OV Office Visit 20:31:04 CDT
--- OUTSIDE RECORDS SUMMARY | 2019-10-04 12:04 | XMS REPORT | Clinical Summary ---
Author Author Zoe, Alex Jacobs [facility] Address Unknown Phone Unavailable Allergies, [...] Instructions Start Date Stop Date Generic Name [facility] Status Provider Patient Instruction MELOXICAM 7.5 MG TABS 1 tab by mouth every 12 hours as needed 10/08 MELOXICAM 62676882473 Active Bill Gonzáles MD Active VIAGRA 50 MG TABS 1/2 TABLET 1 HR BEFORE BEDTIME SILDENAFIL CITRATE 38123203708 Active Essence Benson RMA Active AMOXICILLIN 875 MG TABS 1 tab by mouth twice daily 201 11/15/00 AMOXICILLIN 92781039578 No Longer Active Bill Gonzáles MD Acti ve LANOXIN 0.125 MG TABS 1 tab po qd DIGOXIN 45484664311 Ac tive Bill Gonzáles MD Active VIAGRA 100 MG TABS 1/2 po 1 hr before sexual activity SILDENAFIL CITRATE 14419964560 No Longer Active Francisco J Mata MD Active TUSSIONEX PENNKINETIC ER 10-8 MG/5ML LQCR 5ml po q12hr PRN Cough HYDROCOD POLST-CHLORPHEN POLST 91926815822 No Longer Active Francisco J Mata MD Active ZITHROMAX 250 MG TAB 2 po today, then 1 po q days 2-5 AZITHROMYCIN 09372974266 No Longer Active Francisco J Mata MD A ctive PREDNISONE 20 MG TAB 2 tabs daily for 3 days, 1 t ab daily for 3 days, 1/2 tab daily for 2 days PREDNISONE 63219380616 No Longer Active Kendra Irving APRN Active OMEPRAZOLE 40 MG CPDR 1 qd OMEPRAZOLE 83080 242591 No Longer Active Kendra Irving APRN Active ASPIR-81 81 MG TBEC 1 qd ASPIRIN 27339375750 Activ e DANNY Tabor Active ATENOLOL 50 MG TABS 1 bid ATENOLOL 56161321452 Acti ve Bill Gonzáles MD Active CLONIDINE HCL 0.1 MG TABS 1 bid CLONIDINE HCL 75236 469727 Active Bill Gonzáles MD Active [facility] VITAMIN E 1000 UNIT CAPS 1 qd VITAMIN E 641130 23979 Active Mario Alberto Morfin RMMichael Active DAILY MULTIPLE VITAMINS TABS 1 qd MULTIPLE V ITAMIN 41000025167 Active Mario Alberto Morfin RMMichael Active GARLIC OIL 500 MG TABS 1 qd GARLIC 71565519654 Ac tive Mario Alberto Morfin RMA Active ZETIA 10 MG TABS 1 qd EZETIMIBE 70289996500 Active Bill Gonzáles MD Active KLOR-CON M20 20 MEQ CR-TABS 1 qd BLAKE Ba CHLORIDE JARRED CR 78851110377 Active Bill Gonzáles MD Active BUMETANIDE 2 MG TABS 1qd BUMETANIDE 16707879669 A ctive Bill Gonzáles MD Active SIMVASTATIN 40 MG TABS 1 qhs SIMVASTATIN 7586460156 6 Active Bill Gonzáles MD Active OMEPRAZOLE 40 MG CPDR 1 qd OMEPRAZOLE 40 MG CPDR 513397 OMEPRAZOLE Inactive ZITHROMAX 250 MG TAB 2 po today, then 1 po q days 2-5 ZITHROMAX 250 MG TAB 0558979 AZITHROMYCIN Inactive TUSSIONEX PENNKINETIC ER 10-8 MG/5ML [...] for 2 days PREDNISONE 20 MG TAB 491181 PREDNISON E Inactive AMOXICILLIN 875 MG TABS 1 tab by mouth twice daily 201 11/15/00 AMOXICILLIN 875 MG TABS 965729 AMOXICILLIN Inactive Diagnostic Results Date Name Value Unit Range Description Lab Report: Comp. Metabolic Panel, CBC, Lipid Panel, Digoxin, MICROALBUMIN - Chemistry sodium, serum 142 mmol/L 233-758 4801/02/23 potassium, serum 4.7 mmol/L 3.5-5.2 chloride, serum 102 mmol/L 98-107 carbon dioxide, venous blood 29.7 mmol/L 21.0-32 .0 blood glucose 92 mg/dL 65-110 urea nitrogen, blood 17 mg/dL 7-18 creatinine, serum 1.20 mg/dL 0.60-1.30 alanine aminotransferase (SGPT), serum 38 U/L 12-78 aspartate aminotransferase (SGOT), serum 25 U/L 15-37 calcium, serum 8.9 mg/dL 8.5-10.1 bilirubin, serum, total 0.60 mg/dL 0.00-1.00 cholesterol, serum 107 mg/dL 680-635 7905/02/23 triglyceride, serum, fasting 72 mg/dL 30-200 HDL [...] 0-19 Encounters Code Encounter Date Provider Facility CPT-70951 Level 4 Est. Patient 10:12:54 MEDICAL OFFICE TECHNOLOGIST Bill holden MD [facility] CPT-35171 Level 4 Est. Patient 20:03:37 MEDICAL OFFICE TECHNOLOGIST Bill holden MD [facility] CPT-91161 Level 3 Est. Patient 16:15:23 MEDICAL OFFICE TECHNOLOGIST Bill holden MD [facility] CPT-08904 Level 4 Est. Patient 23:44:36 CDT Bill holden MD [facility] CPT-12069 Level 3 Est. Patient 14:02:53 MEDICAL OFFICE TECHNOLOGIST Kendra rankin APRN [facility] Procedures Code Procedure Name Date Entry Date Standard Desc ription CPT-OV Office Visit 14:28:59 MEDICAL OFFICE TECHNOLOGIST CPT-OV Office Visit 11:28:00 CDT CPT-OV Office Visit 15:01:24 CDT CPT-OV Office Visit 16:55:58 CDT CPT-OV Office Visit 16:05:31 MEDICAL OFFICE TECHNOLOGIST CPT-OV Office Visit 09:47:16 MEDICAL OFFICE TECHNOLOGIST CPT-OV Office Visit 20:31:04 CDT
--- OUTSIDE RECORDS SUMMARY | 2019-10-04 12:04 | XMS REPORT | Clinical Summary ---
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 F/U EXAM FOLLOW CMPL TX W/HIGH-RISK MED NEC V67.51 Act brad Kendra Irving APRN Follow-up examination follow ing treatment with high-risk medication, not elsewhere classified CAD 414.00 Active Bill Gonzáles MD Coronary atherosclerosis of unspecified type of vessel, [place] or graft Sinusitis 461.9 Active Bill Gonzáles MD Acute sinusitis, unspecified BRONCHITIS-ACUTE ICD-466.0 Inactive Kendra josé APRN Medication List Medication Instructions Start Date Stop Date Generic Name NDC Status Provider Patient Instruction AMOXICILLIN 875 MG TABS 1 tab by mouth twice daily 201 11/15/00 AMOXICILLIN 21596198203 No Longer Active Bill Gonzáles MD Acti ve LANOXIN 0.125 MG TABS 1 tab po qd DIGOXIN 46135463615 Ac tive Bill Gonzáles MD Active VIAGRA 100 MG TABS 1/2 po 1 hr before sexual activity SILDENAFIL CITRATE 30577316347 No Longer Active Francisco J Mata MD Active TUSSIONEX PENNKINETIC ER 10-8 MG/5ML LQCR 5ml po q12hr PRN Cough HYDROCOD POLST-CHLORPHEN POLST 76390201990 No Longer Active Francisco J Mata MD Active ZITHROMAX 250 MG TAB 2 po today, then 1 po q days 2-5 AZITHROMYCIN 95815952225 No Longer Active Francisco J Mata MD A ctive PREDNISONE 20 MG TAB 2 tabs daily for 3 days, 1 t ab daily for 3 days, 1/2 tab daily for 2 days PREDNISONE 61396823461 No Longer Active Kendra Irving APRN Active OMEPRAZOLE 40 MG CPDR 1 qd OMEPRAZOLE 21350 656761 No Longer Active Kendra Irving APRN Active ASPIR-81 81 MG TBEC 1 qd ASPIRIN 77694673497 Activ e Mario Alberto Morfin Active ATENOLOL 50 MG TABS 1 bid ATENOLOL 80513443734 Acti ve Bill Gonzáles MD Active CLONIDINE HCL 0.1 MG TABS 1 bid CLONIDINE HCL 76660 194139 Active Wilfredo Wood Active [facility] VITAMIN E 1000 UNIT CAPS 1 qd VITAMIN E 031261 28448 Active [place] Navjot Active DAILY MULTIPLE VITAMINS TABS 1 qd MULTIPLE V ITAMIN 19227500522 Active Mario Alberto Rowley Active GARLIC OIL 500 MG TABS 1 qd GARLIC 01929587351 Ac tive Mario Alberto Morfin Active ZETIA 10 MG TABS 1 qd EZETIMIBE 86747384625 Active Bill Gonzáles MD Active KLOR-CON M20 20 MEQ CR-TABS 1 qd BLAKE Ba CHLORIDE JARRED CR 35009976925 Active Bill Gonzáles MD Active BUMETANIDE 2 MG TABS 1qd BUMETANIDE 51036510244 A ctive Bill Gonzáles MD Active SIMVASTATIN 40 MG TABS 1 qhs SIMVASTATIN 2359172193 5 Active Bill Gonzáles MD Active OMEPRAZOLE 40 MG CPDR 1 qd OMEPRAZOLE 40 MG CPDR 20020924 OMEPRAZOLE Inactive ZITHROMAX 250 MG TAB 2 po today, then 1 po q days 2-5 ZITHROMAX 250 MG TAB 5720179 AZITHROMYCIN Inactive TUSSIONEX PENNKINETIC ER 10-8 MG/5ML [...] for 2 days PREDNISONE 20 MG TAB 233598 PREDNISON E Inactive AMOXICILLIN 875 MG TABS 1 tab by mouth twice daily 201 11/15/00 AMOXICILLIN 875 MG TABS 560530 AMOXICILLIN Inactive Vital Signs Date Name Value [...] dipstick Negative Negative cholesterol, serum 117 mg/dL 122-196 6080/10/04 triglyceride, serum, fasting 67 mg/dL 30-200 HDL [...] mg/dL Encounters Code Encounter Date Provider Facility CPT-23666 Level 4 Est. Patient 20:03:37 FOOD STYLIST Bill holden MD [facility] CPT-11695 Level 3 Est. Patient 16:15:23 FOOD STYLIST Bill holden MD [facility] CPT-88890 Level 4 Est. Patient 23:44:36 CDT Bill holden MD [facility] CPT-99766 Level 3 Est. Patient 14:02:53 FOOD STYLIST Kendra rankin APRN [facility] Procedures Code Procedure Name Date Entry Date Standard Desc ription CPT-OV Office Visit 11:28:00 CDT CPT-OV Office Visit 15:01:24 CDT CPT-OV Office Visit 16:55:58 CDT CPT-OV Office Visit 16:05:31 FOOD STYLIST CPT-OV Office Visit 09:47:16 FOOD STYLIST CPT-OV Office Visit 20:31:04 CDT
--- OUTSIDE RECORDS SUMMARY | 2019-10-04 12:04 | XMS REPORT | Clinical Summary ---
Author Author Admin, Alex Jacobs [facility] Address Unknown Phone Allergies, Adverse Reactions, Alerts [...] ophageal reflux BRONCHITIS-ACUTE 466.0 Inactive Kendra CONTRERAS psychiatric nurse bronchitis F/U EXAM FOLLOW CMPL TX W/HIGH-RISK MED NEC V67.51 Act brad Kendra Irving HOSPICE HOME CARE COORDINATOR Follow-up examination follow ing treatment with high-risk medication, not elsewhere classified CAD 414.00 Active Bill Gonzáles MD Coronary atherosclerosis of unspecified type of vessel, [place] or graft Sinusitis 461.9 Active Bill Gonzáles MD Acute sinusitis, unspecified BRONCHITIS-ACUTE ICD-466.0 Inactive Kendra josé APRN Medication List Medication Instructions Start Date Stop Date Generic Name NDC Status Provider Patient Instruction AMOXICILLIN 875 MG TABS 1 tab by mouth twice daily 201 11/15/00 AMOXICILLIN 74302328210 No Longer Active Bill Gonzáles MD Acti ve LANOXIN 0.125 MG TABS 1 tab po qd DIGOXIN 19815919120 Ac tive Bill Gonzáles MD Active VIAGRA 100 MG TABS 1/2 po 1 hr before sexual activity SILDENAFIL CITRATE 58340929385 No Longer Active Francisco J Mata MD Active TUSSIONEX PENNKINETIC ER 10-8 MG/5ML LQCR 5ml po q12hr PRN Cough HYDROCOD POLST-CHLORPHEN POLST 83038518508 No Longer Active Francisco J Mata MD Active ZITHROMAX 250 MG TAB 2 po today, then 1 po q days 2-5 AZITHROMYCIN 93593311937 No Longer Active Francisco J Mata MD A ctive PREDNISONE 20 MG TAB 2 tabs daily for 3 days, 1 t ab daily for 3 days, 1/2 tab daily for 2 days PREDNISONE 02871135751 No Longer Active Kendra Irving APRN Active OMEPRAZOLE 40 MG CPDR 1 qd OMEPRAZOLE 18286 366511 No Longer Active Kendra Irving APRN Active ASPIR-81 81 MG TBEC 1 qd ASPIRIN 44485227323 Activ e Mario Alberto Morfin Active ATENOLOL 50 MG TABS 1 bid ATENOLOL 61718204154 Acti ve Bill Gonzáles MD Active CLONIDINE HCL 0.1 MG TABS 1 bid CLONIDINE HCL 36762 203877 Active Wilfredo Wood Active [facility] VITAMIN E 1000 UNIT CAPS 1 qd VITAMIN E 342512 14604 Active [place] Navjot Active DAILY MULTIPLE VITAMINS TABS 1 qd MULTIPLE V ITAMIN 42269708886 Active Mario Alberto Apison Active GARLIC OIL 500 MG TABS 1 qd GARLIC 47750542362 Ac tive Mario Alberto Morfin Active ZETIA 10 MG TABS 1 qd EZETIMIBE 02819948816 Active Bill Gonzáles MD Active KLOR-CON M20 20 MEQ CR-TABS 1 qd BLAKE Ba CHLORIDE JARRED CR 14014218014 Active Bill Gonzáles MD Active BUMETANIDE 2 MG TABS 1qd BUMETANIDE 11381705123 A ctive Bill Gonzáles MD Active SIMVASTATIN 40 MG TABS 1 qhs SIMVASTATIN 5045357474 5 Active Bill Gonzáles MD Active OMEPRAZOLE 40 MG CPDR 1 qd OMEPRAZOLE 40 MG CPDR 20020924 OMEPRAZOLE Inactive ZITHROMAX 250 MG TAB 2 po today, then 1 po q days 2-5 ZITHROMAX 250 MG TAB 9456330 AZITHROMYCIN Inactive TUSSIONEX PENNKINETIC ER 10-8 MG/5ML [...] for 2 days PREDNISONE 20 MG TAB 538248 PREDNISON E Inactive AMOXICILLIN 875 MG TABS 1 tab by mouth twice daily 201 11/15/00 AMOXICILLIN 875 MG TABS 080718 AMOXICILLIN Inactive Vital Signs Date Name Value [...] dipstick Negative Negative cholesterol, serum 117 mg/dL 796-075 5653/10/04 triglyceride, serum, fasting 67 mg/dL 30-200 HDL [...] mg/dL Encounters Code Encounter Date Provider Facility CPT-15230 Level 4 Est. Patient 20:03:37 CORPORATE OPERATIONS COMPLIANCE MANAGER Bill holden MD [facility] CPT-29134 Level 3 Est. Patient 16:15:23 CORPORATE OPERATIONS COMPLIANCE MANAGER Bill holden MD [facility] CPT-44342 Level 4 Est. Patient 23:44:36 CDT Bill holden MD [facility] CPT-23126 Level 3 Est. Patient 14:02:53 CORPORATE OPERATIONS COMPLIANCE MANAGER Kendra rankin APRN [facility] Procedures Code Procedure Name Date Entry Date Standard Desc ription CPT-OV Office Visit 11:28:00 CDT CPT-OV Office Visit 15:01:24 CDT CPT-OV Office Visit 16:55:58 CDT CPT-OV Office Visit 16:05:31 CORPORATE OPERATIONS COMPLIANCE MANAGER CPT-OV Office Visit 09:47:16 CORPORATE OPERATIONS COMPLIANCE MANAGER CPT-OV Office Visit 20:31:04 CDT
--- OUTSIDE RECORDS SUMMARY | 2019-10-04 12:04 | XMS REPORT | Clinical Summary ---
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 F/U EXAM FOLLOW CMPL TX W/HIGH-RISK MED NEC V67.51 Act brad Kendra Irving APRN Follow-up examination follow ing treatment with high-risk medication, not elsewhere classified CAD 414.00 Active Bill Gonzáles MD Coronary atherosclerosis of unspecified type of vessel, [place] or graft Sinusitis 461.9 Active Bill Gonzáles MD Acute sinusitis, unspecified BRONCHITIS-ACUTE ICD-466.0 Inactive Kendra josé APRN Medication List Medication Instructions Start Date Stop Date Generic Name [facility] Status Provider Patient Instruction AMOXICILLIN 875 MG TABS 1 tab by mouth twice daily 201 11/15/00 AMOXICILLIN 67265824298 No Longer Active Bill Gonzáles MD Acti ve LANOXIN 0.125 MG TABS 1 tab po qd DIGOXIN 06860624413 Ac tive Bill Gonzáles MD Active VIAGRA 100 MG TABS 1/2 po 1 hr before sexual activity SILDENAFIL CITRATE 00355190016 No Longer Active Francisco J Mata MD Active TUSSIONEX PENNKINETIC ER 10-8 MG/5ML LQCR 5ml po q12hr PRN Cough HYDROCOD POLST-CHLORPHEN POLST 70873826682 No Longer Active Francisco J Mata MD Active ZITHROMAX 250 MG TAB 2 po today, then 1 po q days 2-5 AZITHROMYCIN 82228876882 No Longer Active Francisco J Mata MD A ctive PREDNISONE 20 MG TAB 2 tabs daily for 3 days, 1 t ab daily for 3 days, 1/2 tab daily for 2 days PREDNISONE 22170458092 No Longer Active Kendra Irving APRN Active OMEPRAZOLE 40 MG CPDR 1 qd OMEPRAZOLE 12978 737554 No Longer Active Kendra Irving APRN Active ASPIR-81 81 MG TBEC 1 qd ASPIRIN 84003308562 Activ lauren Morfin RMMichael Active ATENOLOL 50 MG TABS 1 bid ATENOLOL 33308139642 Acti ve Bill Gonzáles MD Active CLONIDINE HCL 0.1 MG TABS 1 bid CLONIDINE HCL 89701 559719 Active Wilfredo Wood RN Active [facility] VITAMIN E 1000 UNIT CAPS 1 qd VITAMIN E 018972 96500 Active DANNY Tabro Active DAILY MULTIPLE VITAMINS TABS 1 qd MULTIPLE V ITAMIN 53099137400 Active DANNY Tabor Active GARLIC OIL 500 MG TABS 1 qd GARLIC 40034325210 Ac tive DANNY Tabor Active ZETIA 10 MG TABS 1 qd EZETIMIBE 68690895842 Active Bill Gonzáles MD Active KLOR-CON M20 20 MEQ CR-TABS 1 qd BLAKE Ba CHLORIDE JARRED CR 35156671806 Active Bill Gonzáles MD Active BUMETANIDE 2 MG TABS 1qd BUMETANIDE 62033717001 A ctive Bill Gonzáles MD Active SIMVASTATIN 40 MG TABS 1 qhs SIMVASTATIN 2902022080 5 Active Bill Gonzáles MD Active OMEPRAZOLE 40 MG CPDR 1 qd OMEPRAZOLE 40 MG CPDR 207773 OMEPRAZOLE Inactive ZITHROMAX 250 MG TAB 2 po today, then 1 po q days 2-5 ZITHROMAX 250 MG TAB 6564089 AZITHROMYCIN Inactive TUSSIONEX PENNKINETIC ER 10-8 MG/5ML [...] for 2 days PREDNISONE 20 MG TAB 162508 PREDNISON E Inactive AMOXICILLIN 875 MG TABS 1 tab by mouth twice daily 201 11/15/00 AMOXICILLIN 875 MG TABS 788219 AMOXICILLIN Inactive Vital Signs Date Name Value [...] Negative mg/dL Negative cholesterol, serum 117 mg/dL 408-139 6248/10/04 triglyceride, serum, fasting 67 mg/dL 30-200 HDL [...] mg/dL Encounters Code Encounter Date Provider Facility CPT-39228 Level 4 Est. Patient 20:03:37 REGASIFICATION PLANT OPERATOR Bill holden MD [facility] CPT-14427 Level 3 Est. Patient 16:15:23 REGASIFICATION PLANT OPERATOR Bill holden MD [facility] CPT-20789 Level 4 Est. Patient 23:44:36 CDT Bill holden MD [facility] CPT-82731 Level 3 Est. Patient 14:02:53 REGASIFICATION PLANT OPERATOR Kendra rankin APRN [facility] Procedures Code Procedure Name Date Entry Date Standard Desc ription CPT-OV Office Visit 11:28:00 CDT CPT-OV Office Visit 15:01:24 CDT CPT-OV Office Visit 16:55:58 CDT CPT-OV Office Visit 16:05:31 REGASIFICATION PLANT OPERATOR CPT-OV Office Visit 09:47:16 REGASIFICATION PLANT OPERATOR CPT-OV Office Visit 20:31:04 CDT
--- OUTSIDE RECORDS SUMMARY | 2019-10-04 12:04 | XMS REPORT | Clinical Summary ---
Author Author Admin, Alex Jacobs [facility] Address Unknown Phone Unavailable Allergies, Adverse Reactions, [...] MALIGNANT NEOPLASM ESOPHAGUS V10.03 Active Francisco J aMta MD Personal history of malignant neoplasm of [...] Coronary atherosclerosis of unspecified type of vessel, [place] or graft Sinusitis 461.9 Active Bill Gonzáles MD Acute sinusitis, unspecified BRONCHITIS-ACUTE ICD-466.0 Inactive Kendra josé APRN Medication List Medication Instructions Start Date Stop Date Generic Name NDC Status Provider Patient Instruction VIAGRA 50 MG TABS 1/2 TABLET 1 HR BEFORE BEDTIME SILDENAFIL CITRATE 45901091563 Active Essence DELGADO Active AMOXICILLIN 875 MG TABS 1 tab by mouth twice daily 201 11/15/00 AMOXICILLIN 16627744892 No Longer Active Bill Gonzáles MD Acti ve LANOXIN 0.125 MG TABS 1 tab po qd DIGOXIN 52651501544 Ac tive Bill Gonzáles MD Active VIAGRA 100 MG TABS 1/2 po 1 hr before sexual activity SILDENAFIL CITRATE 14363821175 No Longer Active Francisco J Mata MD Active TUSSIONEX PENNKINETIC ER 10-8 MG/5ML LQCR 5ml po q12hr PRN Cough HYDROCOD POLST-CHLORPHEN POLST 62747217421 No Longer Active Francisco J Mata MD Active ZITHROMAX 250 MG TAB 2 po today, then 1 po q days 2-5 AZITHROMYCIN 57016337685 No Longer Active Francisco J Mata MD A ctive PREDNISONE 20 MG TAB 2 tabs daily for 3 days, 1 t ab daily for 3 days, 1/2 tab daily for 2 days PREDNISONE 37528627933 No Longer Active Kendra Irving APRN Active OMEPRAZOLE 40 MG CPDR 1 qd OMEPRAZOLE 64944 726091 No Longer Active Kendra Irving APRN Active ASPIR-81 81 MG TBEC 1 qd ASPIRIN 59507121493 Activ e DANNY Tabor Active ATENOLOL 50 MG TABS 1 bid ATENOLOL 60586188761 Acti ve Bill Gonzáles MD Active CLONIDINE HCL 0.1 MG TABS 1 bid CLONIDINE HCL 60879 968794 Active Bill Gonzáles MD Active CVS VITAMIN E 1000 UNIT CAPS 1 qd VITAMIN E 452592 68353 Active DANNY Tabor Active DAILY MULTIPLE VITAMINS TABS 1 qd MULTIPLE V ITAMIN 70271700509 Active DANNY Tabor Active GARLIC OIL 500 MG TABS 1 qd GARLIC 36822304410 Ac blanca Morfin, Michael Active ZETIA 10 MG TABS 1 qd EZETIMIBE 75172464129 Active Bill Gonzáles MD Active KLOR-CON M20 20 MEQ CR-TABS 1 qd BLAKE Ba CHLORIDE JARRED CR 00768372928 Active Bill Gonzáles MD Active BUMETANIDE 2 MG TABS 1qd BUMETANIDE 15409620858 A ctive Bill Gonzáles MD Active SIMVASTATIN 40 MG TABS 1 qhs SIMVASTATIN 8666787132 6 Active Bill Gonzáles MD Active OMEPRAZOLE 40 MG CPDR 1 qd OMEPRAZOLE 40 MG CPDR 20020924 OMEPRAZOLE Inactive ZITHROMAX 250 MG TAB 2 po today, then 1 po q days 2-5 ZITHROMAX 250 MG TAB 3021719 AZITHROMYCIN Inactive TUSSIONEX PENNKINETIC ER 10-8 MG/5ML [...] for 2 days PREDNISONE 20 MG TAB 149092 PREDNISON E Inactive AMOXICILLIN 875 MG TABS 1 tab by mouth twice daily 201 11/15/00 AMOXICILLIN 875 MG TABS 089053 AMOXICILLIN Inactive Vital Signs Date Name Value [...] mg/dL Encounters Code Encounter Date Provider Facility CPT-93701 Level 4 Est. Patient 20:03:37 C4 PLANNER Bill holden MD [facility] CPT-88059 Level 3 Est. Patient 16:15:23 C4 PLANNER Bill holden MD [facility] CPT-15989 Level 4 Est. Patient 23:44:36 CDT Bill holden MD [facility] CPT-14202 Level 3 Est. Patient 14:02:53 C4 PLANNER Kendra rankin APRN [facility] Procedures Code Procedure Name Date Entry Date Standard Desc ription CPT-OV Office Visit 11:28:00 CDT CPT-OV Office Visit 15:01:24 CDT CPT-OV Office Visit 16:55:58 CDT CPT-OV Office Visit 16:05:31 C4 PLANNER CPT-OV Office Visit 09:47:16 C4 PLANNER CPT-OV Office Visit 20:31:04 CDT
--- OUTSIDE RECORDS SUMMARY | 2019-10-04 12:05 | XMS REPORT | Clinical Summary ---
Author Author Zoe, Alex Jacobs [facility] Address Unknown Phone Unavailable Allergies, Adverse [...] ophageal reflux BRONCHITIS-ACUTE 466.0 Inactive Kendra CONTRERAS director of learning bronchitis F/U EXAM FOLLOW CMPL TX W/HIGH-RISK MED NEC V67.51 Act brad Kendra Irving APRN Follow-up examination follow ing treatment with high-risk medication, not elsewhere classified CAD 414.00 Active Bill Gonzáles MD Coronary atherosclerosis of unspecified type of vessel, [place] or graft Sinusitis 461.9 Active Bill Gonzáles MD Acute sinusitis, unspecified BRONCHITIS-ACUTE ICD-466.0 Inactive Kendra josé APRN Medication List Medication Instructions Start Date Stop Date Generic Name NDC Status Provider Patient Instruction VIAGRA 50 MG TABS 1/2 TABLET 1 HR BEFORE BEDTIME SILDENAFIL CITRATE 65753628984 Active Essence Goeringer RMA Active AMOXICILLIN 875 MG TABS 1 tab by mouth twice daily 201 11/15/00 AMOXICILLIN 82194302857 No Longer Active Bill Gonzáles MD Acti ve LANOXIN 0.125 MG TABS 1 tab po qd DIGOXIN 95302382118 Ac tive Bill Gonzáles MD Active VIAGRA 100 MG TABS 1/2 po 1 hr before sexual activity SILDENAFIL CITRATE 09329919955 No Longer Active Francisco J Mata MD Active TUSSIONEX PENNKINETIC ER 10-8 MG/5ML LQCR 5ml po q12hr PRN Cough HYDROCOD POLST-CHLORPHEN POLST 78319574269 No Longer Active Francisco J Mata MD Active ZITHROMAX 250 MG TAB 2 po today, then 1 po q days 2-5 AZITHROMYCIN 01556067856 No Longer Active Francisco J Mata MD A ctive PREDNISONE 20 MG TAB 2 tabs daily for 3 days, 1 t ab daily for 3 days, 1/2 tab daily for 2 days PREDNISONE 48687380510 No Longer Active Kendra Irving APRN Active OMEPRAZOLE 40 MG CPDR 1 qd OMEPRAZOLE 61362 948859 No Longer Active Kendra Irving APRN Active ASPIR-81 81 MG TBEC 1 qd ASPIRIN 96374018626 Activ e DANNY Tabor Active ATENOLOL 50 MG TABS 1 bid ATENOLOL 60999480277 Acti ve Bill Gonzáles MD Active CLONIDINE HCL 0.1 MG TABS 1 bid CLONIDINE HCL 33805 071735 Active Wilfredo Wood RN Active [facility]S VITAMIN E 1000 UNIT CAPS 1 qd VITAMIN E 604020 18890 Active DANNY Tabor Active DAILY MULTIPLE VITAMINS TABS 1 qd MULTIPLE V ITAMIN 31247225640 Active DANNY Tabor Active GARLIC OIL 500 MG TABS 1 qd GARLIC 35788375802 Ac tive Mario Alberto Morfin [facility] Active ZETIA 10 MG TABS 1 qd EZETIMIBE 79581386832 Active Bill Gonzáles MD Active KLOR-CON M20 20 MEQ CR-TABS 1 qd BLAKE Ba CHLORIDE JARRED CR 59128238125 Active Bill Gonzáles MD Active BUMETANIDE 2 MG TABS 1qd BUMETANIDE 27034757109 A ctive Bill Gonzáles MD Active SIMVASTATIN 40 MG TABS 1 qhs SIMVASTATIN 1481312991 5 Active Bill Gonzáles MD Active OMEPRAZOLE 40 MG CPDR 1 qd OMEPRAZOLE 40 MG CPDR 20020924 OMEPRAZOLE Inactive ZITHROMAX 250 MG TAB 2 po today, then 1 po q days 2-5 ZITHROMAX 250 MG TAB 8306733 AZITHROMYCIN Inactive TUSSIONEX PENNKINETIC ER 10-8 MG/5ML [...] for 2 days PREDNISONE 20 MG TAB 469004 PREDNISON E Inactive AMOXICILLIN 875 MG TABS 1 tab by mouth twice daily 201 11/15/00 AMOXICILLIN 875 MG TABS 446899 AMOXICILLIN Inactive Vital Signs Date Name Value [...] Negative mg/dL Negative cholesterol, serum 117 mg/dL 231-148 9738/10/04 triglyceride, serum, fasting 67 mg/dL 30-200 HDL [...] mg/dL Encounters Code Encounter Date Provider Facility CPT-21487 Level 4 Est. Patient 20:03:37 WAFER CLEANER Bill holden MD [facility] CPT-46496 Level 3 Est. Patient 16:15:23 WAFER CLEANER Bill holden MD [facility] CPT-90589 Level 4 Est. Patient 23:44:36 CDT Bill ohlden MD [facility] CPT-72842 Level 3 Est. Patient 14:02:53 WAFER CLEANER Kendra rankin APRN [facility] Procedures Code Procedure Name Date Entry Date Standard Desc ription CPT-OV Office Visit 11:28:00 CDT CPT-OV Office Visit 15:01:24 CDT CPT-OV Office Visit 16:55:58 CDT CPT-OV Office Visit 16:05:31 WAFER CLEANER CPT-OV Office Visit 09:47:16 WAFER CLEANER CPT-OV Office Visit 20:31:04 CDT
--- OUTSIDE RECORDS SUMMARY | 2019-10-04 12:05 | XMS REPORT | Continuity of Care Document ---
Author Organization Unknown Address Unknown Phone Unavailable Allergies Active Description Code Type Severity Reaction Onset Reported/Identified Relationship to Patient Clinical Status Yes Adhesive Tape 3254 Drug Allergy Unknown N/A Yes No known drug allergies [id number] ND N/A N/A Yes No Known Medication Allergies Drug N/A N/A Yes NO KNOWN ALLERGY ANKA N/A N/A 07/02/2005 Yes No Known Allergies [id number] Dr pantoja Allergy Unknown N/A 10/08/2016 Yes No Known Drug Allergies [id number] Drug Allergy Unknown N/A 09/25/2019 Medications Medication Packaging Start Date St op Date Route Dosage Sig DOCUSATE SODIUM 10/08/2016 10/09/2016 BIDPRN ACETAMINOPHEN 10/09/2016 Q4HPRN ACETAMINOPHEN 10/09/2016 Q4HPRN ALUM-MAG HYDROXIDE-SIMETH 10/08/2016 10/09/2016 Q4HPRN MAGNESIUM HYDROXIDE 10/08/2016 10/09/2016 HSPRN SODIUM CHLORIDE 0.9 % 10/08/2016 10/09/2016 PRNIV ALPRAZolam 10/0810/09/2016 QD SERTRALINE 10/0810/09/2016 QD ASPIRIN EC 10/0810/08/2016 0700 POTASSIUM CHLORIDE 10/08/2016 10/09/2016 0700 cloNIDine 201610/09/2016 BID ATENOLOL 017 10/09/2016 BID BUMETANIDE 10/0810/09/2016 QD CETIRIZINE 10/0810/09/2016 QD PANTOPRAZOLE 10/09/2016 ACB DIGOXIN 10/08/1910/09/2016 DIG ACETAMINOPHEN 10/09/2016 Q4HPRN ONDANSETRON HCL 10/08/2016 10/09/2016 Q6HPRN ASPIRIN 10/08/1910/09/2016 0700 CLOPIDOGREL 09/1710/08/2016 ONCE EZETIMIBE 201610/09/2016 PM ATORVASTATIN 10/09/2016 HS CLOPIDOGREL 09/1710/09/2016 QD DOCUSATE SODIUM 05/12/2018 05/12/2018 BIDPRN ACETAMINOPHEN 05/12/2018 Q4HPRN ACETAMINOPHEN 05/12/2018 Q4HPRN SODIUM CHLORIDE 0.9 % 05/12/2018 05/12/2018 PRNIV ALUM-MAG HYDROXIDE-SIMETH 05/12/2018 05/12/2018 Q4HPRN MAGNESIUM HYDROXIDE 05/12/2018 05/12/2018 HSPRN SODIUM CHLORIDE 0.9 % 05/12/2018 05/12/2018 PRNIV ALBUTEROL SULFATE 05/12/2018 05/12/2018 Q6HPRN tiZANidine 05/1205/12/2018 Q6-8HPR N NITROGLYCERIN 05/12/2018 [id number] N PANTOPRAZOLE 05/12/2018 ACB LISINOPRIL 05/1205/12/2018 QD ASPIRIN 05/12/20 18 05/12/2018 0700 CLOPIDOGREL 04/1705/12/2018 QD ATENOLOL 018 05/12/2018 QD ACETAMINOPHEN 05/12/2018 Q4HPRN ONDANSETRON HCL 05/12/2018 05/12/2018 Q6HPRN DIGOXIN 05/12/20 18 05/12/2018 DIG ATORVASTATIN 05/12/2018 HS DOCUSATE SODIUM 09/05/2018 09/06/2018 BIDPRN ACETAMINOPHEN 09/06/2018 Q4HPRN ACETAMINOPHEN 09/06/2018 Q4HPRN ALUM-MAG HYDROXIDE-SIMETH 09/05/2018 09/06/2018 Q4HPRN MAGNESIUM HYDROXIDE 09/05/2018 09/06/2018 HSPRN MORPHINE 019 09/06/2018 [id number] N HYDROCODONE-ACET 5-325MG 09/05/2018 09/06/2018 Q3HPRN ONDANSETRON HCL 09/05/2018 09/06/2018 Q6HPRN SODIUM CHLORIDE 0.9 % 09/05/2018 09/06/2018 PRNIV SODIUM CHLORIDE 0.9% 09/05/2018 09/06/2018 PRNIV METOCLOPRAMIDE 0 09/05/2018 09/06/2018 Q6HPRN NITROGLYCERIN 09/06/2018 [id number] N ALBUTEROL SULFATE 09/05/2018 09/06/2018 Q6HPRN PANTOPRAZOLE 09/06/2018 ACB POTASSIUM CHLORIDE 09/05/2018 09/06/2018 0700 ASPIRIN 09/05/19 19 09/06/2018 0700 CLOPIDOGREL 08/1709/06/2018 QD BUMETANIDE 09/0509/06/2018 QD ATENOLOL 019 09/06/2018 QD ASPIRIN, BUFFERED 09/05/2018 09/05/2018 QD DIGOXIN 09/05/19 19 09/06/2018 DIG CEFAZOLIN 201809/06/2018 Q8H ATORVASTATIN 09/06/2018 HS LISINOPRIL 09/0509/06/2018 HS SODIUM CHLORIDE 0.9 % 09/06/2018 09/06/2018 C Problems Date Dx Coded Attending Type Code Diagnosis Diagnosed By 10/17/2016 AMRIK PHAN E11.9 TYPE 2 DIABETES MELLITUS WITHOUT COMPLICATIONS AMRIK PHAN 10/17/2016 AMRIK PHAN E78.5 HYPERLIPIDEMIA, UNSPECIFIED AMRIK PHAN 10/17/2016 AMRIK PHAN I10 ESSENTIAL (PRIMARY) HYPERTENSION AMRIK PHAN 10/17/2016 AMRIK PHAN I25.10 ATHEROSCLEROTIC HEART DISEASE OF [place] CORONARY ARTERY WITHOUT ANGINA PECTORIS AMRIK PHAN 10/17/2016 AMRIK PHAN I25.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 AMRIK PHAN 10/17/2016 AMRIK PHAN I25.82 CHRONIC TOTAL OCCLUSION OF CORONARY ARTERY AMRIK PHAN 10/17/2016 AMRIK PHAN I47.2 VENTRICULAR TACHYCARDIA AMRIK PHAN 10/17/2016 TAUKE, AMRIK T S I48.0 PAROXYSMAL ATRIAL FIBRILLATION AMRIK PHAN 10/17/2016 SYLVESTER AMRIK Aquino A R07.9 CHEST PAIN, UNSPECIFIED AMRIK PHAN 10/17/2016 AMRIK PHAN S Z79.82 HALFWAY (CURRENT) USE OF ASPIRIN AMRIK PHAN 10/17/2016 AMRIK PHAN S Z79.899 OTHER HALFWAY (CURRENT) DRUG THERAPY AMRIK PHAN 10/17/2016 AMRIK PHAN S Z87.891 PERSONAL HISTORY OF NICOTINE DEPENDENCE AMRIK PHAN 05/02/2018 AMRIK PHAN P Z79.01 HALFWAY (CURRENT) USE OF ANTICOAGULANTS MARISABELWILLIAMRIK 05/31/2018 AMRIK PHAN S E11.9 TYPE 2 DIABETES MELLITUS WITHOUT COMPLICATIONS MARISABELWILLIAMRIK 05/31/2018 AMRIK PHAN S E78.5 HYPERLIPIDEMIA, UNSPECIFIED SYLVESTERAMRIK 05/31/2018 AMRIK PHAN S I10 ESSENTIAL (PRIMARY) HYPERTENSION MARISABELWILLIAMRIK 05/31/2018 AMRIK PHAN P I25.10 ATHEROSCLEROTIC HEART DISEASE OF [place] CORONARY ARTERY WITHOUT ANGINA PECTORIS MARISABELWILLIAMRIK 05/31/2018 AMRIK PHAN S I48.0 PAROXYSMAL ATRIAL FIBRILLATION AMRIK PHAN 05/31/2018 AMRIK PHAN S Z95.5 PRESENCE OF CORONARY ANGIOPLASTY IMPLANT AND GRAFT MARISABELWILLIAMRIK 06/26/2018 AMRIK PHAN S E11.9 TYPE 2 DIABETES MELLITUS WITHOUT COMPLICATIONS MARISABELWILLIAMRIK 06/26/2018 AMRIK PHAN S E78.5 HYPERLIPIDEMIA, UNSPECIFIED SYLVESTERAMRIK 06/26/2018 AMRIK PHAN S F17.210 NICOTINE DEPENDENCE, CIGARETTES, UNCOMPLICATED MARISABELWILLIAMRIK 06/26/2018 AMRIK PHAN T P I25.119 ATHEROSCLEROTIC HEART DISEASE OF [place] CORONARY ARTERY WITH UNSPECIFIED ANGINA PECTORIS SYLVESTERAMRIK 06/26/2018 AMRIK PHAN T S I25.719 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(S) WITH UNSPECIFIED ANGINA PECTORIS SYLVESTER AMRIK Aquino 06/26/2018 AMRIK PHAN T S I25.82 CHRONIC TOTAL OCCLUSION OF CORONARY ARTERY AMRIK PHAN 06/26/2018 SYLVESTERADRIAMRIK T S I48.0 PAROXYSMAL ATRIAL FIBRILLATION AMRIK PHAN 06/26/2018 ADRI PHANLIGIA Aquino S Z79.82 HALFWAY (CURRENT) USE OF ASPIRIN AMRIK PHAN 06/26/2018 ADRI PHANLIGIA Aquino S Z79.899 OTHER INTERACTIVE ART DIRECTOR (CURRENT) DRUG THERAPY AMRIK PHAN 06/26/2018 MARISABELWILLIADRIAMRIK T S Z85.038 PERSONAL HISTORY OF OTHER MALIGNANT NEOPLASM OF LARGE INTESTINE AMRIK PHAN 06/26/2018 ADRI PHANLIGIA Aquino S Z95.5 PRESENCE OF CORONARY ANGIOPLASTY IMPLANT AND GRAFT MARISABELWILLIADRIAMRIK T 08/24/2018 Amrik Mak MD I65 .23 Occlusion and stenosis of bilateral carotid arteries Amrik Mak MD 08/27/2018 AMRIK MAK I65.23 OCCLUSION AND STENOSIS OF BILATERAL CAROTID ARTERIES AMRIK MAK 08/27/2018 AMRIK MAK R09.89 OTHER SPECIFIED SYMPTOMS AND SIGNS INVOLVING THE CIRCULATORY AND RESPIRATORY SYSTEMS AMRIK MAK 09/12/2018 Amrik Mak MD I70.211 Atherosclerosis of [place] arteries of ex tremities with intermittent claudication, right leg Amrik Mak MD 09/13/2018 Amrik Mak MD E11 .9 Type 2 diabetes mellitus without complications Amrik Mak MD 09/13/2018 Amrik Mak MD I10 Essential (primary) hypertension Amrik Mak MD 09/13/2018 Amrik Mak MD I25 .10 Atherosclerotic heart disease of [place] coronary artery without angina pectoris Amrik Mak MD 09/13/2018 Amrik Mak MD I70.211 Atherosclerosis of [place] arteries of ex tremities with intermittent claudication, right leg Amrik Mak MD 09/13/2018 Amrik Mak MD M19 .90 Unspecified osteoarthritis, unspecified site Amrik Mak MD 09/13/2018 Amrik Mak MD R10 .30 Lower abdominal pain, unspecified Amrik Mak MD 09/13/2018 Amrik Mak MD Z48 .89 Encounter for other specified surgical aftercare Amrik Mak MD 09/13/2018 Amrik Mak MD Z79 .02 assisted (current) use of antithrombotics/antiplatelets Amrik Mak MD 09/13/2018 Amrik Mak MD Z79 .82 meterman (current) use of aspirin Amrik Mak MD 09/13/2018 Amrik Mak MD Z85 .01 Personal history of malignant neoplasm of esophagus Amrik Mak MD 09/27/2018 Amrik Mak MD I10 Essential (primary) hypertension Amrik Mak MD 09/28/2018 Amrik Mak MD I10 Essential (primary) hypertension Amrik Mak MD 09/25/2019 MARGO GONZALEZ APRN Ot M79.641 PAIN IN RIGHT HAND 09/25/2019 MARGO GONZALEZ APRN Ot R55 SYNCOPE AND COLLAPSE 09/25/2019 MARGO GONZALEZ APRN Ot S61.411A LACERATION WITHOUT FOREIGN BODY OF RIGHT 09/25/2019 MARGO GONZALEZ APRN Ot W20.8XXA OTH CAUSE OF STRIKE BY THROWN, PROJECTED 09/25/2019 MARGO GONZALEZ APRN Ot W26.8XXA CONTACT WITH OTHER SHARP OBJECT(S), NEC, Procedures Code Description [place] [address] Dupl ex scan of extracranial arteries; complete bilateral study Amrik Mak MD 08/23/2018 34009 Thro mboendarterectomy, with or without patch graft; iliofemoral Amrik Mak MD 09/09/2018 85399 Offi ce or other outpatient visit for the evaluation and management of a new patient, which requires Amrik Mak MD 09/12/2018 34074 Ultr asound, abdominal aorta, real time with image documentation, screening study for abdominal aorti Amrik Mak MD 09/27/2018 20385 Ultr asound, abdominal aorta, real time with image documentation, screening study for abdominal aorti Amrik Mak MD 10/17/2018 50830 Thro mboendarterectomy, with or without patch graft; iliofemoral Amrik Mak MD 01/12/2019 93170 Dupl ex scan of extracranial arteries; complete bilateral study Amrik Mak MD 01/12/2019 19449 Offi ce or other outpatient visit for the evaluation and management of a new patient, which requires Amrik Mak MD 01/12/2019 Results Test Result Range CBC - 05/31/12 13:12 MEAN CELL HGB 32.7 pg 27.0-33.0 MEAN CELL HGB CONCENTRATION 34.4 g/dl 32 .0-36.0 MEAN CELL VOLUME 94.9 fl 80.0-100.0 RED BLOOD CELL 4.56 m/cumm 4.00-6.00 RED CELL DISTRIBUTION WIDTH 14.0 % 11 .0-15.6 WHITE BLOOD CELL 8.4 k/cumm 5.0-10.0 HEMOGLOBIN 14.9 gm/dL 14.0-18.0 HEMATOCRIT 43.2 % 40.0-54.0 PLATELET COUNT 164 k/cumm 150-450 PROTHROMBIN TIME WITH INR - 05/31/12 13: 12 INTERNATIONAL NORMAL RATIO 1.0 0.9 -1.1 PROTHROMBIN TIME 10.7 sec 9.3-12.2 POTASSIUM - 05/31/12 13:12 POTASSIUM 4.4 mmol/L 3.5-5.3 CBC NO DIFF (HEMOGRAM) - 10/08/16 09:20 WBC - WHITE CELL COUNT 4.5 X10(3 ) 4.5-11.0 RBC - RED CELL COUNT 4.54 X10( 6) 4.60- 6.20 PLATELET COUNT 164 X10(3 ) 150-450 HEMOGLOBIN 14.2 g/dl 13.5-18.0 HEMATOCRIT 41.9 % 40.0-54.0 MCV 92.3 fL 80.0-96.0 MCH 31 pg 27-31 MCHC 33.9 % 32.0-36.0 BMP - BASIC METABOLIC PANEL - 10/08/16 0 9:20 GLUCOSE 87 mg/dl 74-106 BUN 25 mg/dl 7-18 CREATININE 1.14 mg/d l 0.70- 1.30 eGFR >60 mL/mi n SODIUM (NA) 140 mEq/L 136-146 POTASSIUM, BLOOD 4.6 mEq/L 3.5-5.1 CHLORIDE 108 mEq/L 98-107 CO2 (BICARBONATE) 25 mEq/L 21-32 CALCIUM 8.9 mg/dl 8.5-10.1 HOLD SPECIMEN FOR BLOOD BANK - 10/08/16 09:20 HOLD SPECIMEN FOR BLOOD BANK ARC MAGNESIUM - 10/08/16 09:20 MAGNESIUM 2.1 mg/dl 1.8-2.4 LIPID PANEL - 10/09/16 05:20 CHOLESTEROL 114 mg/dl <=199 HDL CHOLESTEROL 47 mg/dl 40-60 TRIGLYCERIDES 54 mg/dl <=200 LDL, CALCULATED 56.2 mg/d l 0.0-99.0 VLDL, CALCULATED 10.8 mg/d l 0.0- 130.0 CARDIAC RISK 2 BMP - BASIC METABOLIC PANEL - 10/09/16 0 5:20 GLUCOSE 94 mg/dl 74-106 BUN 20 mg/dl 7-18 CREATININE 1.06 mg/d l 0.70- 1.30 eGFR >60 mL/mi n SODIUM (NA) 138 mEq/L 136-146 POTASSIUM, BLOOD 4.1 mEq/L 3.5-5.1 CHLORIDE 107 mEq/L 98-107 CO2 (BICARBONATE) 23 mEq/L 21-32 CALCIUM 8.4 mg/dl 8.5-10.1 CBC NO DIFF (HEMOGRAM) - 10/09/16 05:20 WBC - WHITE CELL COUNT 5.0 X10(3 ) 4.5-11.0 RBC - RED CELL COUNT 4.24 X10( 6) 4.60- 6.20 PLATELET COUNT 137 X10(3 ) 150-450 HEMOGLOBIN 13.5 g/dl 13.5-18.0 HEMATOCRIT 39.1 % 40.0-54.0 MCV 92.2 fL 80.0-96.0 MCH 32 pg 27-31 MCHC 34.5 % 32.0-36.0 CBC NO DIFF (HEMOGRAM) - 03/15/18 11:40 WBC - WHITE CELL COUNT 6.4 X10(3 ) uL 4.5- 11.0 RBC - RED CELL COUNT 4.32 X10( 6) uL 4.60-6.20 PLATELET COUNT 148 X10(3 ) uL 150- 450 HEMOGLOBIN 14.4 g/dl 13.5-18.0 HEMATOCRIT 41.3 % 40.0-54.0 MCV 95.6 fL 80.0-96.0 MCH 33 pg 27-31 MCHC 34.9 % 32.0-36.0 BMP - BASIC METABOLIC PANEL - 03/15/18 1 1:40 GLUCOSE 94 mg/dl 74-106 BUN 21 mg/dl 7-18 CREATININE 1.14 mg/d l 0.70- 1.30 SODIUM (NA) 142 mEq/L 136-146 POTASSIUM, BLOOD 3.6 mEq/L 3.5-5.1 CHLORIDE 103 mEq/L 98-107 CO2 (BICARBONATE) 30 mEq/L 21-32 CALCIUM 9.3 mg/dl 8.5-10.1 eGFR mL/min >=59 PLATELET FUNCTION SCREEN IN HOUSE - 04/16 09/02 14:15 PLATELET COUNT 200 X10(3 ) uL 150- 450 ADP PLATELET SCREEN 65 % 86-100 ARACHIDONIC ACID PLATELET SCREEN 46 % 60-100 PLT INHIBITION HEADER Res ults are expressed as % functioning platelets. Decreased platelet function may be due to a therapeutic response or other platelet defects. ADP: Glycoprotein IIb/IIIIa inhibition (Plavix, Effient, Integrilin). Collagen: Platelet adhesion inhibition (Aggrenox, Pletal). Arachidonic Acid: HALL-1 inhibitors (aspirin). COLLAGEN PLT SCREEN 64 % 70-100 CBC NO DIFF (HEMOGRAM) - 05/12/18 10:00 WBC - WHITE CELL COUNT 6.6 X10(3 ) uL 4.5- 11.0 RBC - RED CELL COUNT 4.09 X10( 6) uL 4.20-6.20 PLATELET COUNT 144 X10(3 ) uL 150- 450 HEMOGLOBIN 13.1 g/dl 13.5-18.0 HEMATOCRIT 39.1 % 38.0-54.0 MCV 95.6 fL 80.0-96.0 MCH 32 pg 27-31 MCHC 33.5 % 32.0-36.0 [facility] - BASIC METABOLIC PANEL - 05/12/18 1 0:00 GLUCOSE 102 mg/dl 74-106 BUN 25 mg/dl 7-18 CREATININE 1.16 mg/d l 0.70- 1.30 SODIUM (NA) 142 mEq/L 136-146 POTASSIUM, BLOOD 4.1 mEq/L 3.5-5.1 CHLORIDE 106 mEq/L 98-107 CO2 (BICARBONATE) 27 mEq/L 21-32 CALCIUM 8.7 mg/dl 8.5-10.1 eGFR mL/min >=59 HOLD SPECIMEN FOR BLOOD BANK - 05/12/18 10:00 HOLD SPECIMEN FOR BLOOD BANK ARC ARC SONOGRAM CAROTID - 08/23/18 16:28 Document View Attached Image [facility]G [facility] - BASIC METABOLIC PANEL - 09/05/18 0 6:35 GLUCOSE 113 mg/dl 74-106 BUN 23 mg/dl 7-18 CREATININE 1.15 mg/d l 0.70- 1.30 SODIUM (NA) 139 mEq/L 136-146 POTASSIUM, BLOOD 3.8 mEq/L 3.5-5.1 CHLORIDE 105 mEq/L 98-107 CO2 (BICARBONATE) 25 mEq/L 21-32 CALCIUM 8.7 mg/dl 8.5-10.1 eGFR mL/min >=59 CBC with Auto Diff - 09/05/18 06:35 WBC - WHITE CELL COUNT 5.2 X10(3 ) uL 4.5- 11.0 RBC - RED CELL COUNT 4.24 X10( 6) uL 4.20-6.20 PLATELET COUNT 150 X10(3 ) uL 150- 450 HEMOGLOBIN 13.2 g/dl 13.5-18.0 HEMATOCRIT 40.4 % 38.0-54.0 MCV 95.3 fL 80.0-96.0 MCH 31 pg 27-31 MCHC 32.7 % 32.0-36.0 LYMPHS 21.7 % 20.0-45.0 NEUTROPHILS 60.8 % 40.0-80.0 MONOS% 9.2 % <=10.1 EOS% 7.7 % <=6.1 BASO% 0.4 % <=2.1 IGRAN% 0.2 % <=1.1 HOLD SPECIMEN FOR BLOOD BANK - 09/05/18 06:35 HOLD SPECIMEN FOR BLOOD BANK [facility] Encounters ACCT No. Visit Date/Time Discharge Status Pt. Type Provider Facility Loc./Unit Complaint [id number] 09/05/2018 06:06:00 09/06/2018 14:04: 00 DIS Inpatient AMRIK MAK [facility] CLAUDICATION, SCREENING [id number] 08/19/2018 12:46:00 08/19/2018 12:46: 00 DIS Outpatient AMRIK MAK CAROTID BRUIT [id number] 05/12/2018 09:31:00 05/12/2018 16:55: 00 DIS Outpatient AMRIK PHAN [facility] ABN THALL [id number] 04/26/2018 14:42:00 04/26/2018 14:42: 00 DIS Outpatient AMRIK PHAN Z79.01 [id number] 03/31/2018 06:32:00 04/01/2018 09:00: 00 DIS Outpatient AMRIK PHAN [facility] ABN THALL [id number] 03/15/2018 12:24:00 03/15/2018 12:24: 00 DIS Outpatient SYLVESTER AMRIK Aquino I25.10 [id number] 10/08/2016 08:39:00 10/09/2016 09:45: 00 DIS Outpatient AMRIK PHAN [facility] ABN EVENT MON, NSVT [id number] 09/27/2018 16:28:02 019 23:59:59 CLS Outpatient Obdulio YEBOAH, Amrik Castillo [id number] 05/31/2012 11:57:00 012 11:57:00 DIS Outpatient Anders YEBOAH, [facility] W.END [id number] 10/23/2013 10:59:00 10/23/2013 10:59 :00 DIS Outpatient NON STAFF, [facility] RAD [id number] 11/06/2016 12:53:22 7 23:59:59 CLS Preadmit [facility] JOHN RAD Dizziness, chest pain [id number] 07/29/2016 15:53:31 6 23:59:59 CLS Preadmit VINAY KNOWLES [facility] JOHN Surgery egd [id number] 07/29/2016 13:50:18 6 23:59:59 CLS Preadmit [facility] JOHN RAD chest pain [id number] 09/25/2019 14:50:00 020 16:11:00 DIS Emergency MARGO GONZALEZ [employer] [facility] ER RIGHT HAND LAC [id number] 12/03/2017 20:05:11 ACT Unknown
--- OUTSIDE RECORDS SUMMARY | 2019-10-04 12:05 | XMS REPORT | Clinical Summary ---
Author Author Zoe, Alex Jacobs [facility] Address Unknown Phone Unavailable Allergies, Adverse [...] Coronary atherosclerosis of unspecified type of vessel, [place] or graft Sinusitis 461.9 Active Bill Gonzáles MD Acute sinusitis, unspecified Colon cancer screening V76.51 Active Kendra Yoon APRN Screening for malignant neoplasms of colon BRONCHITIS-ACUTE ICD-466.0 Inactive Kendra josé APRN Medication List Medication Instructions Start Date Stop Date Generic Name NDC Status Provider Patient Instruction MELOXICAM 7.5 MG TABS 1 tab by mouth every 12 hours as needed 10/08 MELOXICAM 71380055276 Active Bill Gonzáles MD Active VIAGRA 50 MG TABS 1/2 TABLET 1 HR BEFORE BEDTIME SILDENAFIL CITRATE 01524290672 Active Essence Benson RMA Active AMOXICILLIN 875 MG TABS 1 tab by mouth twice daily 201 11/15/00 AMOXICILLIN 83380511608 No Longer Active Bill Gonzáles MD Acti ve LANOXIN 0.125 MG TABS 1 tab po qd DIGOXIN 37853439639 Ac tive Blil Gonzáles MD Active VIAGRA 100 MG TABS 1/2 po 1 hr before sexual activity SILDENAFIL CITRATE 52237922538 No Longer Active Francisco J Mata MD Active TUSSIONEX PENNKINETIC ER 10-8 MG/5ML LQCR 5ml po q12hr PRN Cough HYDROCOD POLST-CHLORPHEN POLST 83811832805 No Longer Active Francisco J Mata MD Active ZITHROMAX 250 MG TAB 2 po today, then 1 po q days 2-5 AZITHROMYCIN 92265117616 No Longer Active Francisco J Mata MD A ctive PREDNISONE 20 MG TAB 2 tabs daily for 3 days, 1 t ab daily for 3 days, 1/2 tab daily for 2 days PREDNISONE 00563671188 No Longer Active Kendra Irving APRN Active OMEPRAZOLE 40 MG CPDR 1 qd OMEPRAZOLE 57743 556879 No Longer Active Kendra Irving APRN Active ASPIR-81 81 MG TBEC 1 qd ASPIRIN 94679197057 Matilde e DANNY Tabor Active ATENOLOL 50 MG TABS 1 bid ATENOLOL 89249225847 Acti ve Bill Gonzáles MD Active CLONIDINE HCL 0.1 MG TABS 1 bid CLONIDINE HCL 97111 812638 Active Bill Gonzáles MD Active [facility] VITAMIN E 1000 UNIT CAPS 1 qd VITAMIN E 747459 06409 Active DANNY Tabor Active DAILY MULTIPLE VITAMINS TABS 1 qd MULTIPLE V ITAMIN 92528416230 Active DANNY Tabor Active GARLIC OIL 500 MG TABS 1 qd GARLIC 50043414677 Ac tive Mario Alberto Morfin RMMichael Active ZETIA 10 MG TABS 1 qd EZETIMIBE 60550467437 Active Bill Gonzáles MD Active KLOR-CON M20 20 MEQ CR-TABS 1 qd BLAKE Ba CHLORIDE JARRED CR 47393389071 Active Bill Gonzáles MD Active BUMETANIDE 2 MG TABS 1qd BUMETANIDE 19485397739 A ctive Bill Gonzáles MD Active SIMVASTATIN 40 MG TABS 1 qhs SIMVASTATIN 4112996893 6 Active Bill Gonzáles MD Active OMEPRAZOLE 40 MG CPDR 1 qd OMEPRAZOLE 40 MG CPDR 902374 OMEPRAZOLE Inactive ZITHROMAX 250 MG TAB 2 po today, then 1 po q days 2-5 ZITHROMAX 250 MG TAB 9161236 AZITHROMYCIN Inactive TUSSIONEX PENNKINETIC ER 10-8 MG/5ML [...] for 2 days PREDNISONE 20 MG TAB 003956 PREDNISON E Inactive AMOXICILLIN 875 MG TABS 1 tab by mouth twice daily 201 11/15/00 AMOXICILLIN 875 MG TABS 499657 AMOXICILLIN Inactive Vital Signs Date Name Value [...] MICROALBUMIN - Chemistry sodium, serum 142 mmol/L 784-164 0625/02/23 potassium, serum 4.7 mmol/L 3.5-5.2 chloride, serum 102 mmol/L 98-107 carbon dioxide, venous blood 29.7 mmol/L 21.0-32 .0 blood glucose 92 mg/dL 65-110 urea nitrogen, blood 17 mg/dL 7-18 creatinine, serum 1.20 mg/dL 0.60-1.30 alanine aminotransferase (SGPT), serum 38 U/L 12-78 aspartate aminotransferase (SGOT), serum 25 U/L 15-37 calcium, serum 8.9 mg/dL 8.5-10.1 bilirubin, serum, total 0.60 mg/dL 0.00-1.00 cholesterol, serum 107 mg/dL 999-447 5886/02/23 triglyceride, serum, fasting 72 mg/dL 30-200 HDL [...] mg/dL Encounters Code Encounter Date Provider Facility CPT-59433 Level 4 Est. Patient 10:12:54 ASSET PROTECTION AGENT Bill holden MD [facility] CPT-68062 Level 4 Est. Patient 20:03:37 ASSET PROTECTION AGENT Bill holden MD [facility] CPT-39764 Level 3 Est. Patient 16:15:23 ASSET PROTECTION AGENT Bill holden MD [facility] CPT-74594 Level 4 Est. Patient 23:44:36 CDT Bill holden MD [facility] CPT-31566 Level 3 Est. Patient 14:02:53 ASSET PROTECTION AGENT Kendra rankin APRN [facility] Procedures Code Procedure Name Date Entry Date Standard Desc ription CPT-OV Office Visit 14:28:59 ASSET PROTECTION AGENT CPT-OV Office Visit 11:28:00 CDT CPT-OV Office Visit 15:01:24 CDT CPT-OV Office Visit 16:55:58 CDT CPT-OV Office Visit 16:05:31 ASSET PROTECTION AGENT CPT-OV Office Visit 09:47:16 ASSET PROTECTION AGENT CPT-OV Office Visit 20:31:04 CDT
--- OUTSIDE RECORDS SUMMARY | 2019-10-04 12:05 | XMS REPORT | Clinical Summary ---
Author Author Admin, Alex Jacobs [facility] Address Unknown Phone Unavailable Allergies, Adverse Reactions, [...] Coronary atherosclerosis of unspecified type of vessel, [place] or graft Sinusitis 461.9 Active Bill Gonzáles MD Acute sinusitis, unspecified BRONCHITIS-ACUTE ICD-466.0 Inactive Kendra josé APRN Medication List Medication Instructions Start Date Stop Date Generic Name ND Status Provider Patient Instruction AMOXICILLIN 875 MG TABS 1 tab by mouth twice daily 201 11/15/00 AMOXICILLIN 72140806430 No Longer Active Bill Gonzáles MD Acti ve LANOXIN 0.125 MG TABS 1 tab po qd DIGOXIN 24215722218 Ac tive Bill Gonzáles MD Active VIAGRA 100 MG TABS 1/2 po 1 hr before sexual activity SILDENAFIL CITRATE 49826871074 No Longer Active Francisco J Mata MD Active TUSSIONEX PENNKINETIC ER 10-8 MG/5ML LQCR 5ml po q12hr PRN Cough HYDROCOD POLST-CHLORPHEN POLST 30506920861 No Longer Active Francisco J Mata MD Active ZITHROMAX 250 MG TAB 2 po today, then 1 po q days 2-5 AZITHROMYCIN 33633808833 No Longer Active Francisco J Mata MD A ctive PREDNISONE 20 MG TAB 2 tabs daily for 3 days, 1 t ab daily for 3 days, 1/2 tab daily for 2 days PREDNISONE 01154480965 No Longer Active Kendra Irving APRN Active OMEPRAZOLE 40 MG CPDR 1 qd OMEPRAZOLE 58760 717951 No Longer Active Kendra Irving APRN Active ASPIR-81 81 MG TBEC 1 qd ASPIRIN 41647921524 Activ lauren Morfin RMMichael Active ATENOLOL 50 MG TABS 1 bid ATENOLOL 28016271126 Acti ve Bill Gonzáles MD Active CLONIDINE HCL 0.1 MG TABS 1 bid CLONIDINE HCL 02573 205531 Active Wilfredo Wood RN Active CVS VITAMIN E 1000 UNIT CAPS 1 qd VITAMIN E 986829 95280 Active DANNY Tabor Active DAILY MULTIPLE VITAMINS TABS 1 qd MULTIPLE V ITAMIN 35111637110 Active DANNY Tabor Active GARLIC OIL 500 MG TABS 1 qd GARLIC 33782306048 Ac tive DANNY Tabor Active ZETIA 10 MG TABS 1 qd EZETIMIBE 24167117642 Active Bill Gonzáles MD Active KLOR-CON M20 20 MEQ CR-TABS 1 qd BLAKE Ba CHLORIDE JARRED CR 87477444025 Active Bill Gonzáles MD Active BUMETANIDE 2 MG TABS 1qd BUMETANIDE 36925004111 A ctive Bill Gonzáles MD Active SIMVASTATIN 40 MG TABS 1 qhs SIMVASTATIN 0861557518 5 Active Bill Gonzáles MD Active OMEPRAZOLE 40 MG CPDR 1 qd OMEPRAZOLE 40 MG CPDR 113361 OMEPRAZOLE Inactive ZITHROMAX 250 MG TAB 2 po today, then 1 po q days 2-5 ZITHROMAX 250 MG TAB 5041213 AZITHROMYCIN Inactive TUSSIONEX PENNKINETIC ER 10-8 MG/5ML [...] for 2 days PREDNISONE 20 MG TAB 218395 PREDNISON E Inactive AMOXICILLIN 875 MG TABS 1 tab by mouth twice daily 201 11/15/00 AMOXICILLIN 875 MG TABS 811469 AMOXICILLIN Inactive Vital Signs Date Name Value [...] Negative mg/dL Negative cholesterol, serum 117 mg/dL [phone]/10/04 triglyceride, serum, fasting 67 mg/dL 30-200 HDL [...] mg/dL Encounters Code Encounter Date Provider Facility CPT-21867 Level 4 Est. 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 Patient 23:44:36 CDT Bill holden MD [facility] CPT-80885 Level 3 Est. 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
--- OUTSIDE RECORDS SUMMARY | 2019-10-04 12:05 | XMS REPORT | Clinical Summary ---
Author Author Zoe, Alex Jacobs [facility] Address Unknown Phone Unavailable [...] ophageal reflux BRONCHITIS-ACUTE 466.0 Inactive Kendra CONTRERAS bioinformatics support specialist bronchitis F/U EXAM FOLLOW CMPL TX W/HIGH-RISK MED NEC V67.51 Act brad Kendra Irving APRN Follow-up examination follow ing treatment with high-risk medication, not elsewhere classified CAD 414.00 Active Bill Gonzáles MD Coronary atherosclerosis of unspecified type of vessel, [place] or graft Sinusitis 461.9 Active Bill Gonzáles MD Acute sinusitis, unspecified BRONCHITIS-ACUTE ICD-466.0 Inactive Kendra josé APRN Medication List Medication Instructions Start Date Stop Date Generic Name [facility] Status Provider Patient Instruction AMOXICILLIN 875 MG TABS 1 tab by mouth twice daily 201 11/15/00 AMOXICILLIN 02208805755 No Longer Active Bill Gonzáles MD Acti ve LANOXIN 0.125 MG TABS 1 tab po qd DIGOXIN 41771287820 Ac tive Bill Gonzáles MD Active VIAGRA 100 MG TABS 1/2 po 1 hr before sexual activity SILDENAFIL CITRATE 58917282936 No Longer Active Francisco J Mata MD Active TUSSIONEX PENNKINETIC ER 10-8 MG/5ML LQCR 5ml po q12hr PRN Cough HYDROCOD POLST-CHLORPHEN POLST 79529971627 No Longer Active Francisco J Mata MD Active ZITHROMAX 250 MG TAB 2 po today, then 1 po q days 2-5 AZITHROMYCIN 02766539356 No Longer Active Francisco J Mata MD A ctive PREDNISONE 20 MG TAB 2 tabs daily for 3 days, 1 t ab daily for 3 days, 1/2 tab daily for 2 days PREDNISONE 17713526145 No Longer Active Kendra Irving APRN Active OMEPRAZOLE 40 MG CPDR 1 qd OMEPRAZOLE 76104 518127 No Longer Active Kendra Irving APRN Active ASPIR-81 81 MG TBEC 1 qd ASPIRIN 04140332718 Activ lauren Morfin RMMichael Active ATENOLOL 50 MG TABS 1 bid ATENOLOL 33446434695 Acti ve Bill Gonzáles MD Active CLONIDINE HCL 0.1 MG TABS 1 bid CLONIDINE HCL 19083 508207 Active Wilfredo Wood RN Active [facility] VITAMIN E 1000 UNIT CAPS 1 qd VITAMIN E 229706 44828 Active DANNY Tabor Active DAILY MULTIPLE VITAMINS TABS 1 qd MULTIPLE V ITAMIN 71153961298 Active DANNY Tabor Active GARLIC OIL 500 MG TABS 1 qd GARLIC 36575586423 Ac tive DANNY Tabor Active ZETIA 10 MG TABS 1 qd EZETIMIBE 72847526835 Active Bill Gonzáles MD Active KLOR-CON M20 20 MEQ CR-TABS 1 qd BLAKE Ba CHLORIDE JARRED CR 32901455248 Active Bill Gonzáles MD Active BUMETANIDE 2 MG TABS 1qd BUMETANIDE 58928483221 A ctive Bill Gonzáles MD Active SIMVASTATIN 40 MG TABS 1 qhs SIMVASTATIN 8431533239 5 Active Bill Gonzáles MD Active OMEPRAZOLE 40 MG CPDR 1 qd OMEPRAZOLE 40 MG CPDR 917648 OMEPRAZOLE Inactive ZITHROMAX 250 MG TAB 2 po today, then 1 po q days 2-5 ZITHROMAX 250 MG TAB 1329887 AZITHROMYCIN Inactive TUSSIONEX PENNKINETIC ER 10-8 MG/5ML [...] for 2 days PREDNISONE 20 MG TAB 204556 PREDNISON E Inactive AMOXICILLIN 875 MG TABS 1 tab by mouth twice daily 201 11/15/00 AMOXICILLIN 875 MG TABS 579525 AMOXICILLIN Inactive Vital Signs Date Name Value [...] Negative mg/dL Negative cholesterol, serum 117 mg/dL [phone]/10/04 triglyceride, serum, fasting 67 mg/dL 30-200 HDL [...] mg/dL Encounters Code Encounter Date Provider Facility CPT-25241 Level 4 Est. 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 Patient 16:15:23 PRISON TEACHER Bill holden MD [facility] CPT-14505 Level 4 Est. Patient 23:44:36 CDT Bill holden MD [facility] CPT-83832 Level 3 Est. Patient 14:02:53 PRISON TEACHER Kendra rankin APRN [facility] Procedures Code Procedure Name Date Entry Date Standard Desc ription CPT-OV Office Visit 11:28:00 CDT CPT-OV Office Visit 15:01:24 CDT CPT-OV Office Visit 16:55:58 CDT CPT-OV Office Visit 16:05:31 PRISON TEACHER CPT-OV Office Visit 09:47:16 PRISON TEACHER CPT-OV Office Visit 20:31:04 CDT
--- OUTSIDE RECORDS SUMMARY | 2019-10-04 12:05 | XMS REPORT | Clinical Summary ---
Author Author Zoe, Alex Jacobs [facility] Address Unknown Phone Unavailable Allergies, Adverse Reactions, [...] ophageal reflux BRONCHITIS-ACUTE 466.0 Inactive Kendra CONTRERAS superintendent car construction bronchitis F/U EXAM FOLLOW CMPL TX W/HIGH-RISK MED NEC V67.51 Act brad Kendra Irving APRN Follow-up examination follow ing treatment with high-risk medication, not elsewhere classified CAD 414.00 Active Bill Gonzáles MD Coronary atherosclerosis of unspecified type of vessel, [place] or graft Sinusitis 461.9 Active Bill Gonzáles MD Acute sinusitis, unspecified BRONCHITIS-ACUTE ICD-466.0 Inactive Kendra josé APRN Medication List Medication Instructions Start Date Stop Date Generic Name NDC Status Provider Patient Instruction VIAGRA 50 MG TABS 1/2 TABLET 1 HR BEFORE BEDTIME SILDENAFIL CITRATE 54927048112 Active Essence Goeringer RMA Active AMOXICILLIN 875 MG TABS 1 tab by mouth twice daily 201 11/15/00 AMOXICILLIN 52326223396 No Longer Active Bill Gonzáles MD Acti ve LANOXIN 0.125 MG TABS 1 tab po qd DIGOXIN 80821065185 Ac tive Bill Gonzáles MD Active VIAGRA 100 MG TABS 1/2 po 1 hr before sexual activity SILDENAFIL CITRATE 28295275495 No Longer Active Francisco J Mata MD Active TUSSIONEX PENNKINETIC ER 10-8 MG/5ML LQCR 5ml po q12hr PRN Cough HYDROCOD POLST-CHLORPHEN POLST 66116613498 No Longer Active Francisco J Mata MD Active ZITHROMAX 250 MG TAB 2 po today, then 1 po q days 2-5 AZITHROMYCIN 60224883469 No Longer Active Francisco J Mata MD A ctive PREDNISONE 20 MG TAB 2 tabs daily for 3 days, 1 t ab daily for 3 days, 1/2 tab daily for 2 days PREDNISONE 05237986915 No Longer Active Kendra Irving APRN Active OMEPRAZOLE 40 MG CPDR 1 qd OMEPRAZOLE 25015 926743 No Longer Active Kendra Irving APRN Active ASPIR-81 81 MG TBEC 1 qd ASPIRIN 61476972562 Activ e DANNY Tabor Active ATENOLOL 50 MG TABS 1 bid ATENOLOL 59322980373 Acti ve Bill Gonzáles MD Active CLONIDINE HCL 0.1 MG TABS 1 bid CLONIDINE HCL 12744 223866 Active Bill Gonzáles MD Active [facility] VITAMIN E 1000 UNIT CAPS 1 qd VITAMIN E 493464 89893 Active DANNY Tabor Active DAILY MULTIPLE VITAMINS TABS 1 qd MULTIPLE V ITAMIN 75337335994 Active DANNY Tabor Active GARLIC OIL 500 MG TABS 1 qd GARLIC 09432026678 Ac tive Mario Alberto Morfin [facility] Active ZETIA 10 MG TABS 1 qd EZETIMIBE 72923764790 Active Bill Gonzáles MD Active KLOR-CON M20 20 MEQ CR-TABS 1 qd BLAKE Ba CHLORIDE JARRED CR 60963925502 Active Bill Gonzáles MD Active BUMETANIDE 2 MG TABS 1qd BUMETANIDE 14324436528 A ctive Bill Gonzáles MD Active SIMVASTATIN 40 MG TABS 1 qhs SIMVASTATIN 6532574814 6 Active Bill Gonzáles MD Active OMEPRAZOLE 40 MG CPDR 1 qd OMEPRAZOLE 40 MG CPDR 20020924 OMEPRAZOLE Inactive ZITHROMAX 250 MG TAB 2 po today, then 1 po q days 2-5 ZITHROMAX 250 MG TAB 4445423 AZITHROMYCIN Inactive TUSSIONEX PENNKINETIC ER 10-8 MG/5ML [...] for 2 days PREDNISONE 20 MG TAB 603957 PREDNISON E Inactive AMOXICILLIN 875 MG TABS 1 tab by mouth twice daily 201 11/15/00 AMOXICILLIN 875 MG TABS 089220 AMOXICILLIN Inactive Encounters Code Encounter Date Provider Facility CPT-35614 Level 4 Est. 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 Patient 16:15:23 PLIER WORKER Bill holden MD [facility] CPT-96842 Level 4 Est. Patient 23:44:36 CDT Bill holden MD [facility] CPT-62323 Level 3 Est. Patient 14:02:53 PLIER WORKER Kendra rankin APRN [facility] Procedures Code Procedure Name Date Entry Date Standard Desc ription CPT-OV Office Visit 11:28:00 CDT CPT-OV Office Visit 15:01:24 CDT CPT-OV Office Visit 16:55:58 CDT CPT-OV Office Visit 16:05:31 PLIER WORKER CPT-OV Office Visit 09:47:16 PLIER WORKER CPT-OV Office Visit 20:31:04 CDT
== END 2019-09-25 16:11 | disposition home or self-care (01) ==
LOC: ER 14:50
DX: S61.411A Laceration without foreign body of right hand, initial encounter (principal); R55 Syncope and collapse; W20.8XXA Other cause of strike by thrown, projected or falling object, initial encounter; W26.8XXA Contact with other sharp object(s), not elsewhere classified, initial encounter
CPT/HCPCS: 73130